=== PATIENT | female | born 1955 | race Caucasian/White ===

== ENCOUNTER 2017-12-19 15:00 | Outpatient (RCR) | payer OTHER, SELFPAY ==
--- NOTE | 2017-12-03 14:08 | PTTR_ITS ---
DATE: 12/03/17 SUBJECTIVE: Keyla stating she is doing okay today. She notes she is waiting to get authorized for an MRI. She states she is compliant with her HEP and is not having a lot of trouble with these exercises. She notes most of her discomfort is when she is reaching up overhead. OBJECTIVE: Therapeutic procedures ([id number]). * X HEP review: Review and modify HEP. Progress to including overhead activities with soup can at home. Add in standing flexion and abduction utilizing soup can for resistance. Review all activities with pt including number of reps and sets to complete and gave her handout of these exercises. See chart for specifics. * X Provided skilled instruction in proper exercise performance: * X Provided skilled manual cues to facilitate proper muscle recruitment and/ or movement pattern: * X Other: Pt will follow up with primary therapist [place] DPT in two weeks. She understands to contact us if she has questions regarding her HEP. Direct treatment time: 30 minutes Total treatment time: 30 minutes Princess Marcano PTA
--- NOTE | 2017-12-19 15:26 | PTTR_ITS ---
DATE: 12/19/17 SUBJECTIVE: Keyla states that her shoulder is feeling about the same. She's been good about doing her exercises daily, but continues to have muscle soreness after completion. Pain is primarily along the medial scapular border, although also extends down the lateral arm with movement. Since her last appointment, she's had an SHERLY performed, which allowed for her to receive her back pay. Dr. Jasso has recommended an MRI, for which she's awaiting approval through [employer] comp. Compliant with HEP: x Yes No OBJECTIVE: Manual therapy: ([id number]): Keyla demonstrates 170 degrees of active flexion on the left. AB allows 170 degrees, IR allows thumb to T8. Passively, her rotation is full and flexion allows 175 degrees. She received CFM to the GT, as well as grade III inferior and AP GH joint mobs. She received scapulothoracic joint mobs in sidelying position, and connective tissue mobilization to the left upper trap. Post-rx, she tolerates 175 degrees flexion with improved comfort noted. We reviewed her HEP, which she's going to continue independently. A/P: Will follow up in 2-3 weeks for re-eval and progression. Direct treatment time: 30 minutes Total treatment time: 30 minutes
== END 2017-12-28 23:59 | disposition home or self-care (01) ==
LOC: PT 15:00
PROVIDERS: PCP Internal Medicine; Referring Provider Orthopaedic Surgery; Visit Provider Orthopaedic Surgery
DX: M65.812 Other synovitis and tenosynovitis, left shoulder (principal); M79.89 Other specified soft tissue disorders
CPT/HCPCS: 97110; 97140

== ENCOUNTER 2020-06-29 21:57 | Outpatient (REF) | payer MEDICARE, OTHER, SELFPAY ==
[2020-06-29 21:49] LABS: HCT 45.5 % (36.0-46.0); HGB 13.6 g/dL (11.2-15.7); MCH 20.8 pg (27.0-33.0); MCHC 29.9 % (32.0-36.0); MCV 69.7 fL (80-95); MPV 10.1 fL (8.0-11.0); Platelet Count 513 10^3/uL (130-400); RBC 6.53 10^6/uL (3.93-5.22); RDW 24.3 % (11.7-14.6); RDW-SD 56.5 fL; WBC 8.44 10^3/uL (4.4-10.8)
[2020-06-29 22:08] LABS: ALT 35 U/L (14-59); AST 19 U/L (15-37); Albumin 4.1 g/dL (3.4-5.0); Alkaline Phosphatase 84 U/L (46-116); Anion Gap 8.9 mmol/L (3-11); BUN 15 mg/dL (7-18); Bilirubin, Total 1.2 mg/dL (0.2-1.0); CO2 28.1 mmol/L (21.0-32.0); CREATININE 0.9 mg/dL (0.55-1.02); Calculated LDL 205 mg/dL (<100); Chloride 105 mmol/L (98-107); Cholesterol 295 mg/dL (<200); Glucose 91 mg/dL (74-106); HDL Cholesterol 52 mg/dL (40-60); Potassium 4.8 mmol/L (3.5-5.1); Sodium 142 mmol/L (136-145); TSH (W/Ref FT4) 1.58 uIU/mL (0.36-3.74); Triglyceride 191 mg/dL (<150)
== END 2020-06-29 21:58 | disposition home or self-care (01) ==
LOC: LBN 21:57
PROVIDERS: PCP Nurse Practitioner Family; Visit Provider Nurse Practitioner Family
DX: E78.5 Hyperlipidemia, unspecified (principal); Z01.30 Encounter for examination of blood pressure without abnormal findings
CPT/HCPCS: 80053; 80061; 85027; 84443

== ENCOUNTER 2020-07-06 08:56 | Outpatient (CLI) | payer MEDICARE, OTHER, SELFPAY ==
--- NOTE | 2020-07-22 09:17 | W.ZIOMONITOR ---
Date of service: 07/22/20 Time of Service: 09:17 14 Day [employer] Referring Provider:: Jeffery Indications:: Palps Note: This is a 14-day monitor with indication of palpitations. ?The patient was in normal sinus rhythm for the majority of the recording with an average heart rate of 70 bpm. ?There were 9 episodes of supraventricular tachycardia with the longest lasting 9 beats. There were rare PACs. ?There were 2 episodes of ventricular tachycardia with the longest lasting 15 beats. This was asymptomatic. ?There were no episodes of atrial fibrillation, no pauses greater than 3 seconds and no evidence of high degree heart block. ?There were no patient triggered events
== END 2020-07-06 08:57 | disposition home or self-care (01) ==
LOC: RT 07-20 08:57
PROVIDERS: PCP Nurse Practitioner Family; Visit Provider Nurse Practitioner Family
DX: R00.2 Palpitations (principal)
CPT/HCPCS: 93246

== ENCOUNTER 2020-07-21 12:15 | Emergency (ER) | payer MEDICARE, OTHER, SELFPAY ==
[2020-07-21 12:19] VITALS: BP 147/63; PULSE 85; RESP 16; TEMP 36.2; O2SAT 99
--- NOTE | 2020-07-21 13:20 | ED.GENADUL_ITS ---
Discharge Plan Disposition Patient Disposition: HOME Condition: Good Discharge Details Clinical Impression: Fissure, anal Primary Care Provider: Lul Figueroa ED Provider: Edith Marsh Home Meds and New Rx's Prescriptions: New lidocaine 4 % gel 1 applic topical BID Qty: 30 RF: 0 glycerin (adult) Suppository 1 supp MO QD-BID PRNQty: 25 RF: 0 docusate sodium [Colace] 100 mg capsule 100 mg PO BID Qty: 30 RF: 0 Continued aspirin 81 mg tablet,chewable 81 mg PO DAILY RF: 0 lisinopril 20 mg tablet 20 mg PO DAILY Qty: 90 RF: 4 atorvastatin [Lipitor] 40 mg tablet 40 mg PO QHS Qty: 90 RF: 4 ibuprofen 200 MG capsule 200 mg PO PRN PRNRF: 0 acetaminophen 650 MG tablet extended release 650 mg PO Q4H PRN (Reason: Pain) Qty: 30 RF: 0 Discharge Instructions Additional Instructions: Take the Colace daily Use the glycerin suppositories daily Sitz bath at night You may use the lidocaine sparingly, use a small amount only twice a day Continue on your Metamucil Return earlier should you have new or worsening complaints Medical Decision Making Patient appears well, we will treat her for a fissure and hemorrhoids constipation She is discharged home in stable condition with stable vitals, she is given a threshold to return should she have new or worsening complaints Abdomen is completely nontender, no indication for imaging at this time As abdomen is soft, nondistended, bowel sounds are intact, low suspicion for b owel obstruction or other pathology Differential Diagnosis Differential Diagnosis: Constipation, hemorrhoid, anal fissure, obstruction Medical Records Medical records reviewed: Yes I reviewed the patient's medical records. HPI This 64-year-old female presents with report of pain to rectum. Patient states that she feels like she has an anal fissure and her hemorrhoids are acting up. She states that she has not been having difficulty moving her bowels secondary to pain. Has pain only with attempt her bowel movement per patient. She denies any abdominal pain, nausea, vomiting, dizziness. Denies fever or chills. Denies urinary symptoms. Stopped taking her Colace temporarily. Has been taking Metamucil at home. Denies any blood in stool. General Date/Time Provider Initiated Documentation: 07/21/20 12:32 . Related Data Home Medications Medication Instructions Recorded Confirmed acetaminophen 650 mg PO Q4H PRN #30 tablet.er 07/27/17 07/21/20 ibuprofen 200 mg PO PRN PRN 07/27/17 07/21/20 aspirin 81 mg chewable tablet 81 mg PO DAILY 07/05/20 07/21/20 lisinopril 20 mg tablet 20 mg PO DAILY #90 tab 07/14/20 07/21/20 atorvastatin 40 mg tablet 40 mg PO QHS #90 tab 07/15/20 07/21/20 docusate sodium [Colace] 100 mg PO BID #30 cap 07/21/20 glycerin (adult) 1 supp MO QD-BID PRN #25 ea 07/21/20 lidocaine 1 applic TOPICAL BID #30 g 07/21/20 Previous Rx's Medication Instructions Recorded acetaminophen 650 mg PO Q4H PRN #30 tablet.er 07/27/17 lisinopril 20 mg tablet 20 mg PO DAILY #90 tab 07/14/20 atorvastatin 40 mg tablet 40 mg PO QHS #90 tab 07/15/20 docusate sodium [Colace] 100 mg PO BID #30 cap 07/21/20 glycerin (adult) 1 supp MO QD-BID PRN #25 ea 07/21/20 lidocaine 1 applic TOPICAL BID #30 g 07/21/20 Allergies Allergy/AdvReac Type Severity Reaction Status Date / Time metaxalone Allergy Severe Itching Verified 07/21/20 12:22 strawberry Allergy Severe Hives Verified 07/21/20 12:22 General Stated Complaint: GenMedical ZACK: 3 Review of Systems Narrative: Review of systems obtained x7 aside from where indicated in HPI negative [facility] Surgical History (Updated 07/05/20 @ 14:40 by Rosa Ronquillo) History of bilateral ligation of fallopian tubes Social History Smoking/Tobacco Use Status: Never Smoking risk assessment performed?: Yes Alcohol Intake: former Drug use: Never Substance use type: does not use Do you feel safe at home: Yes Do you feel safe in your relationship?: Yes Exam Const General: cooperative and comfortable Eyes Pupils: PERRL GI Inspection: normal to inspection Other: No abdominal tenderness with palpation Bowel sounds intact No abdominal bruit or pulsatile mass Other: Anal fissure new diagnosis, tenderness with palpation, no evidence of abscess No evidence of cellulitis Palpable external hemorrhoid and possible palpable internal hemorrhoid, guaiac negative No palpable stool in vault Neuro General: patient alert and patient oriented x3 Extrem Other: Distal pulses intact Course Vital Signs Vital signs: Vital Signs Temperature 36.2 C L 07/21/20 12:19 Pulse 85 07/21/20 12:19 Respiratory Rate 16 07/21/20 12:19 Blood Pressure 147/63 H 07/21/20 12:19 Pulse Oximetry 99 07/21/20 12:19 Temperature 36.2 C L 07/21/20 12:19 Temperature Source Skin 07/21/20 12:19 Pulse 85 07/21/20 12:19 Respiratory Rate 16 07/21/20 12:19 Respiratory Effort 07/21/20 12:24 Blood Pressure 147/63 H 07/21/20 12:19 Blood Pressure Position Sitting 07/21/20 12:19 Pulse Oximetry 99 07/21/20 12:19 Oxygen Delivery Method Room Air 07/21/20 12:19 Oxygen Flow Rate 0 07/21/20 12:19 Pain Level 10 07/21/20 12:19
--- NOTE | 2020-07-22 17:49 | NUR.NOTE ---
Nursing Note: Referral faxed to PCP for follow up for anal fissure per Dr. Ese Ward for early next week. Rosa Paz
== END 2020-07-21 13:27 | disposition home or self-care (01) ==
PROVIDERS: Emergency Provider Physician Assistant; PCP Nurse Practitioner Family
DX: K60.0 Acute anal fissure; K64.4 Residual hemorrhoidal skin tags; K60.2 Anal fissure, unspecified
CPT/HCPCS: 99283

== ENCOUNTER 2020-07-22 09:17 | Outpatient (CLI) | payer MEDICARE, OTHER, SELFPAY | END 2020-07-22 09:18 | LOC: CARDO 08-04 15:36 | PROVIDERS: PCP Nurse Practitioner Family; Referring Provider Nurse Practitioner Family; Visit Provider Internal Medicine Cardiovascular Disease | DX: R00.2 Palpitations (principal); I47.1 Supraventricular tachycardia; I47.2 Ventricular tachycardia | CPT/HCPCS: 93248 ==

== ENCOUNTER 2020-07-24 18:52 | Inpatient (IN) | payer MEDICARE, OTHER, SELFPAY ==
[2020-07-24 19:02] VITALS: BP 154/79; PULSE 115; RESP 18; TEMP 36.6; O2SAT 97
--- NOTE | 2020-07-24 19:05 | ED.GENADUL_ITS ---
Discharge Plan Disposition Patient Disposition: [facility] INPATIENT Condition: Stable Discharge Details Clinical Impression: Constipation, Rectal pain, Pelvic fluid collection, Proctitis Primary Care Provider: Lul Figueroa ED Provider: Nuno Linton Home Meds and New Rx's Prescriptions: No Action aspirin 81 mg tablet,chewable 81 mg PO DAILY RF: 0 lisinopril 20 mg tablet 20 mg PO DAILY Qty: 90 RF: 4 atorvastatin [Lipitor] 40 mg tablet 40 mg PO QHS Qty: 90 RF: 4 polyethylene glycol 3350 [Miralax] 17 gram/dose powder 17 g PO DAILY Qty: 119 RF: 3 ibuprofen 200 MG capsule 200 mg PO PRN PRNRF: 0 acetaminophen 650 MG tablet extended release 650 mg PO Q4H PRN (Reason: Pain) Qty: 30 RF: 0 lidocaine 4 % gel 1 applic topical BID Qty: 30 RF: 0 glycerin (adult) Suppository 1 supp ID QD-BID PRNQty: 25 RF: 0 docusate sodium [Colace] 100 mg capsule 100 mg PO BID Qty: 30 RF: 0 Medical Decision Making <Krystal Oakley DO - Last Filed: 07/24/20 19:54> 64-year-old female with a history of hypertension, depression, CVA, anal fissure who presents for constipation and rectal pain for the past week. Patient seen here few days ago and diagnosed with hemorrhoids and anal fissures and sent home with lidocaine jelly, stool softeners and suppositories. Heart rate 115. Patient appears uncomfortable but nontoxic. She denies abdominal pain but has tenderness across lower abdomen. Patient states she had an internal rectal exam when here a few days ago and is refusing repeat rectal exam due to severe pain. External inspection of rectum notes nonthrombosed hemorrhoids and skin tags but no obvious source for her significant rectal pain. Suspect she either has a significant anal fissure. Also consider cellulitis or abscess however patient appears nontoxic. Will check screening labs, CT abdomen and pelvis and give IV fluids. Although narcotics may worsen constipation, due to patient's severe pain will give a dose of morphine 2 mg IV x1. She also admitted to an episode of urinary incontinence last night and dark very hot urine. She has no focal deficits. No other cauda equina symptoms. Perineal sensation intact and no signs of perineal abscess or cellulitis. We will also check a urine sample to rule out UTI. Suspect patient is holding onto her urine due to pain with sitting on toilet. Discussed with patient's daughter and she was informed of plan. Case endorsed to Dr. Linton to follow-up on labs and imaging and final disposition. Medical Records Medical records reviewed: Yes I reviewed the patient's medical records. <Nuno Linton, DO - Last Filed: 07/25/20 00:12> Patient was signed out to me by my colleague Dr. Krystal Oakley. Please refer to HPI, physical exam assessment and plan. Brief history, patient has had history of constipation, she recently stopped taking her stool softener, which led to constipation and subsequent rectal pain. She was seen a few days ago prescribed Anusol, stool softeners, this did not improve her symptoms. She returns today for worsening of pain, urinating on herself accidentally. Dr. Oakley saw and assessed her, CT scan was ordered and pending at time of signout. CT scan results have returned, there appears to be mild proctitis and stool burden, but in addition to that there is a concerning fluid collection 2 x 5.7 x 4.4 cm between the sacrum and the rectum. Does not clearly appear to be an abscess at this time, but is still of concern. Labs show evidence of a mild white count and mild acute kidney injury. Discomfort to notable to perform repeat rectal exam and has been refused by patient. Discussed the case with surgery/Dr. Marin, she agrees with the atypical and concerning findings of the fluid, we will start Zosyn, and admit for continued monitoring and potential repeat exam under anesthesia tomorrow morning by Dr. Marin. Repeat exam by myself down here shows no signs of focal neurologic deficit, patient appears comfortable in bed currently. Heart rate normal, blood pressure normal. Dr. Marin will place admission orders. Of note there was a self-described stroke in the recent past. No focal neurologic deficits now. Dr. Couch did request that I get a CT scan of the head for anesthesia needs tomorrow. I have extensively reviewed the treatment plan with the patient. I have addressed all patient concerns at this time. I have also discussed the plan with the admitting physician and they agree with the current assessment and plan and have agreed to assume responsibility for the patient. All parties demonstrate verbal understanding and agreement with our assessment and plan at this time. The documentation in this chart was dictated using [employer] dictation software. Please excuse any dictation errors. I did contact the patient's daughter and the patient's and inform them of the situation. FINDINGS: Brain: There is no evidence for acute intra-axial or extra-axial hemorrhage. There is no intracranial mass or mass effect. The basilar cisterns are patent. There is moderate patchy hypodensity within the periventricular and subcortical white matter in the frontoparietal regions suggesting moderate chronic small vessel ischemic changes. There is mild to moderate diffuse cerebral volume loss. Cerebral ventricles: There is mild to moderate ventriculomegaly in proportion to the mild to moderate diffuse cerebral volume loss. Bones/joints: Unremarkable. No acute fracture. Paranasal sinuses: There is a 1.4 x 0.9 cm focal nodular region of soft tissue attenuation within the posterior aspect of the left maxillary sinus suggesting a polyp. The paranasal sinuses are otherwise well aerated. Mastoid air cells: Visualized mastoid air cells are well aerated. Soft tissues: Unremarkable. IMPRESSION: 1. No acute intracranial process identified. 2. Findings of moderate chronic small vessel ischemic changes. 3. Mild to moderate diffuse cerebral volume loss. 4. Polyp within the left maxillary sinus Thank you for allowing us to participate in the care of your patient. Dictated and Authenticated by: Preston Godinez MD 07/24/2020 11:55 PM Eastern Time ([place] & [place]) FINDINGS: Liver: Normal. No mass. Gallbladder and bile ducts: Normal. No calcified stones. No ductal dilation. Pancreas: The pancreas is mildly atrophic, but otherwise appears unremarkable without focal lesion or evidence of acute inflammation. Spleen: Normal. No splenomegaly. Adrenal glands: Normal. No mass. Kidneys and ureters: Normal. No hydronephrosis. Stomach and bowel: There is moderate to large stool within the rectum with moderate rectal distension. There is diffuse mild rectal wall thickening, with more marked thickening of the lower rectum just superior to the level of the anus, suggesting stercoral colitis. There is presacral fluid measuring 2.0 x 5.7 cm in axial dimension is and 4.4 cm in craniocaudal dimension, which is likely related to the adjacent colitis. There is distal colonic diverticulosis without evidence of diverticulitis. Appendix: No evidence of appendicitis. Intraperitoneal space: Unremarkable. No free air. No significant fluid collection. Vasculature: The aorta and iliac arteries demonstrate moderate atherosclerotic calcification without aneurysm formation. Lymph nodes: Unremarkable. No enlarged lymph nodes. Urinary bladder: Unremarkable as visualized. Reproductive: Unremarkable as visualized. Bones/joints: There is moderate facet arthrosis of spine as well as multilevel [id number] spondylosis of the lower thoracic and upper lumbar spine. No acute fractures Soft tissues: There is mild fat stranding within the subcutaneous fat along the gluteal fold adjacent to the anus, as seen on image 82, series 2. No defined fluid collection in this re gion is identified. IMPRESSION: 1. Moderate rectal distention with stool with mild rectal wall thickening and adjacent fat stranding suggesting stercoral colitis. Recommend clinical correlation. 2. Fluid infiltration within the presacral space as described above, likely related to the adjacent colitis. 3. Distal colonic diverticulosis without evidence of diverticulitis Thank you for allowing us to participate in the care of your patient. Dictated and Authenticated by: Preston Godinez MD 07/24/2020 9:44 PM Eastern Time ([place] & [place]) HPI <Krystal Oakley DO - Last Filed: 07/24/20 19:54> General Mode of arrival: ambulatory . Date/Time Provider Initiated Documentation: 07/24/20 18:54 . Limitations to Documentation: no limitations . Information obtained by: patient . HPI Narrative: Patient is a 64-year-old female with a history of depression, hypertension, previous anal fissure, CVA who presents to the ED for rectal pain for the past week. Patient was seen here a few days ago for the same complaint and diagnosed with hemorrhoids and anal fissure and sent home with lidocaine jelly, suppositories and stool softeners. She denies any relief with these at home. She states she also has been taking for the past without relief. Patient states she has a previous history of anal fissure several years ago but states this is much worse. She states she has been taking stool softeners for several years but her primary care office stopped this 2 weeks ago but she is unsure why. She states she then became constipated and attempted to have a bowel movement 1 week ago but was unable. She states she strained while in the toilet and subsequently developed rectal pain the next day. She states she then followed up with her primary care doctor earlier this week and was restarted on her stool softeners. Patient states she then came in here a few days ago for continued constipation and rectal pain. Patient's daughter Rozina also called to states that she brought patient to the ED and patient can be private about her symptoms. She states that patient has been quite uncomfortable. She states that patient endorsed to her that she had an episode of urinary incontinence while laying in bed last night. She told her daughter that her urine was a large amount that gushed out and was very hot. Related Data Home Medications Medication Instructions Recorded Confirmed acetaminophen 650 mg PO Q4H PRN #30 tablet.er 07/27/17 07/24/20 ibuprofen 200 mg PO PRN PRN 07/27/17 07/24/20 aspirin 81 mg chewable tablet 81 mg PO DAILY 07/05/20 07/24/20 lisinopril 20 mg tablet 20 mg PO DAILY #90 tab 07/14/20 07/24/20 atorvastatin 40 mg tablet 40 mg PO QHS #90 tab 07/15/20 07/24/20 docusate sodium [Colace] 100 mg PO BID #30 cap 07/21/20 07/24/20 glycerin (adult) 1 supp ID QD-BID PRN #25 ea 07/21/20 07/24/20 lidocaine 1 applic TOPICAL BID #30 g 07/21/20 07/24/20 polyethylene glycol 3350 17 17 g PO DAILY #119 g 07/23/20 07/24/20 gram/dose oral powder Previous Rx's Medication Instructions Recorded acetaminophen 650 mg PO Q4H PRN #30 tablet.er 07/27/17 lisinopril 20 mg tablet 20 mg PO DAILY #90 tab 07/14/20 atorvastatin 40 mg tablet 40 mg PO QHS #90 tab 07/15/20 docusate sodium [Colace] 100 mg PO BID #30 cap 07/21/20 glycerin (adult) 1 supp ID QD-BID PRN #25 ea 07/21/20 lidocaine 1 applic TOPICAL BID #30 g 07/21/20 polyethylene glycol 3350 17 17 g PO DAILY #119 g 07/23/20 gram/dose oral powder Allergies Allergy/AdvReac Type Severity Reaction Status Date / Time metaxalone Allergy Severe Itching Verified 07/24/20 19:06 strawberry Allergy Severe Hives Verified 07/24/20 19:06 General ZACK: 3 Review of Systems <Krystal Oakley DO - Last Filed: 07/24/20 19:54> All systems reviewed & are unremarkable except as noted in HPI and below Constitutional Constitutional: Reports as per HPI, Denies chills and Denies fever(s) Eyes Eyes: Denies blurry vision ENT Ears, Nose, Mouth, and Throat: Denies dizziness, Denies sore throat and Denies throat swelling Cardiovascular Cardiovascular: Denies chest pain and Denies dyspnea Respiratory Respiratory: Denies cough and Denies dyspnea Gastrointestinal Gastrointestinal: Denies abdominal pain, Reports hematochezia, Reports constipation, Denies diarrhea, Reports nausea, Denies vomiting and Reports other (rectal pain) Genitourinary Genitourinary: Denies hematuria and Denies dysuria Musculoskeletal Musculoskeletal: Denies back pain and Denies numbness Integumentary/Breasts Skin/Breast: Denies lesions and Denies rash Neurologic Neurologic: Denies dizziness, Denies localized weakness and Denies numbness Allergic/Immunologic Allergic/Immunologic: Denies throat swelling PFSH <Krystal Oakley DO - Last Filed: 07/24/20 19:54> Medical History (Updated 07/25/20 @ 00:11 by Nuno Linton DO) CVA (cerebral vascular accident) Depression Fissure, anal Hypertension Stroke Surgical History H/O shoulder surgery History of bilateral ligation of fallopian tubes Social History Smoking/Tobacco Use Status: Never Smoking risk assessment performed?: Yes Alcohol Intake: former Drug use: Never Substance use type: does not use Do you feel safe at home: Yes Do you feel safe in your relationship?: Yes Exam <Krystal Oakley DO - Last Filed: 07/24/20 19:54> Const General: cooperative, uncomfortable and no acute distress Orientation: alert, awake and oriented x3 HENMT Head: normal to inspection Face and sinus: normal facial exam Eyes General: appearance normal, both eyes and all related structures EOM: EOM intact bilaterally Neck Neck: normal visual inspection and No submandibular swelling Lymphatic: no lymphadenopathy noted Chest Chest: normal inspection of the chest and no tenderness Resp Effort & Inspection: normal respiratory effort and able to speak in complete sentences Auscultation: clear to auscultation bilaterally Cardio Rate: tachycardic Rhythm: regular rhythm GI Inspection: normal to inspection Palpation: soft, not firm, not rigid and tender in the LLQ, in the RLQ and suprapubicly Auscultation: normal bowel sounds Rectal Exam - female: hemorrhoids (nonthrombosed, nontender) Skin General skin exam: no rashes or lesions noted Neuro General: patient alert, patient awake and patient oriented x3 Cognition: normal cognition Speech: speech normal Motor: muscle tone normal throughout Sensory Exam: no sensory deficits noted Extrem General: normal to inspection, full ROM, capillary refill normal, no calf tenderness bilaterally and no edema Psych Appearance: grossly normal Mental Status: mental status grossly normal Speech and Movement: speech and movement normal Affect: normal affect Sign Out <Krystal Okaley DO - Last Filed: 07/24/20 19:54> Sign Out Data: Sign Out Comment: Follow-up on labs and imaging and final disposition. Last updated by Krystal Oakley DO at 07/24/20 19:55
[2020-07-24] MEDS: Normal Saline 500 ML IV (19:57)
[2020-07-24] MEDS: Ketorolac 30 MG/ML VIAL IVP (19:58)
[2020-07-24 20:03] LABS: Abs Immature Grans 0.07 10^3/uL (0.0-0.06); Absolute Eosinophil Count 0.18 10^3/uL (0.0-0.7); Absolute Lymphocyte Count 2.25 10^3/uL (1.2-3.4); Absolute Monocyte Count 0.86 10^3/uL (0.1-0.8); Absolute Neutrophil Count 9.38 10^3/uL (1.2-6.7); Basophils % 0.8; Eosinophils % 1.4; HCT 45.3 % (36.0-46.0); HGB 13.9 g/dL (11.2-15.7); Immature Grans % 0.5; Lymphocytes % 17.5; MCH 21.4 pg (27.0-33.0); MCHC 30.7 % (32.0-36.0); MCV 69.8 fL (80-95); MPV 10.3 fL (8.0-11.0); Monocytes % 6.7; Neutrophils % 73.1; Nucleated RBC 0 %; Platelet Count 695 10^3/uL (130-400); RBC 6.49 10^6/uL (3.93-5.22); RDW 24.1 % (11.7-14.6); RDW-SD 55.8 fL; WBC 12.83 10^3/uL (4.4-10.8)
[2020-07-24 20:24] LABS: ALT 34 U/L (14-59); AST 26 U/L (15-37); Albumin 4.1 g/dL (3.4-5.0); Alkaline Phosphatase 114 U/L (46-116); Anion Gap 14.3 mmol/L (3-11); BUN 30 mg/dL (7-18); Bilirubin, Total 1.1 mg/dL (0.2-1.0); CO2 23.7 mmol/L (21.0-32.0); CREATININE 1.4 mg/dL (0.55-1.02); Calcium 9.7 mg/dL (8.5-10.1); Chloride 99 mmol/L (98-107); Estimated GFR 37.74 (mL/min/1.73m2); Glucose 81 mg/dL (74-106); Lipase 151 U/L (73-393); Potassium 4.5 mmol/L (3.5-5.1); Sodium 137 mmol/L (136-145); Total Protein 8.5 g/dL (6.4-8.2)
--- NOTE | 2020-07-24 20:30 | DI.CT_ITS ---
EXAM: CT ABDOMEN PELVIS WO CLINICAL HISTORY: rectal pain, lower abd pain, SWETA (non-con). TECHNIQUE: Imaging Protocol: Axial computed tomography images with coronal and sagittal reformatted images were created and reviewed CONTRAST MATERIAL: Intravenous: none Oral: None COMPARISON: No exams were available for comparison FINDINGS: VISUALIZED LUNG BASES: No nodules nor pleural effusions evident. ABDOMEN: There is no ascites. LIVER: There are no obvious focal hepatic lesions evident of this noninfused study. GALLBLADDER/BILIARY: No obvious gallbladder pathology. CBD is not dilated. PANCREAS: No evidence of pancreatic mass nor dilatation of the pancreatic duct. SPLEEN: Spleen is not enlarged. No obvious intrasplenic lesions. Small splenule noted measuring 8 m illimeters. ADRENALS: There are no significant adrenal masses. KIDNEYS:No cysts evident. No solid renal masses. No calculi nor hydronephrosis. . ABDOMINAL AORTA: Abdominal aorta is not enlarged. LYMPH NODES: There is no retroperitoneal nor paraaortic adenopathy. ABDOMINAL WALL/GI: No evidence of significant anterior abdominal wall hernia. No bowel obstruction. PELVIS: LYMPH NODES: There is no intrapelvic nor inguinal adenopathy. GI: No evidence of appendicitis.There are multiple sigmoid diverticuli but no evidence of obvious acu te diverticulitis.There is abundant fecal material in the rectum and circumferential thickening of th e rectal wall and some surrounding streaking and presacral density. URINARY BLADDER: No calculi nor obvious masses evident REPRODUCTIVE: Age-appropriate OSSEOUS: No significant osseous lesions. IMPRESSION: 1. There are circumferential rectal wall thickening and adjacent fat stranding consistent with elemen t of colitis and there is abundant stool in the rectum with moderate rectal distension. 2. In the retro rectal presacral region there is some presacral fluid measuring approximately 2 cm AP x 6 cm wide by 4 cm craniocaudal. This is probably related to the colitis pattern in the adjacent r ectum. There is no regional lymphadenopathy evident. 3. Sigmoid diverticulosis without evidence of obvious acute diverticulitis. RADIATION DOSE DELIVERED: 698.53mGy.cm Total DLP DATA REPOSITORY: All CT scans at this facility are submitted to the National Radiology Data Registry (NRDR) Dose Index Registry (DIR) with the [employer] (ACR). RADIATION OPTIMIZATION: All CT scans at this facility use at least one of these dose optimization te chniques: automated exposure control; mA and/or kV adjustment per patient size (includes targeted exa ms where dose is matched to clinical indication); or iterative reconstruction.
[2020-07-24 21:06] VITALS: BP 120/68; PULSE 78; RESP 16; O2SAT 98
--- NOTE | 2020-07-24 21:44 | DI.VRAD_ITS ---
PROCEDURE INFORMATION: Exam: CT Abdomen And Pelvis Without Contrast Exam date and time: 07/24/2020 8:47 PM Age: 64 years old Clinical indication: Abdominal pain and other: Rectal; Tenderness; Patient HX: Rectal pain, h/o fissure/hemorrhoids/abd tender TECHNIQUE: Imaging protocol: Computed tomography of the abdomen and pelvis without contrast. COMPARISON: No relevant prior studies available. FINDINGS: Liver: Normal. No mass. Gallbladder and bile ducts: Normal. No calcified stones. No ductal dilation. Pancreas: The pancreas is mildly atrophic, but otherwise appears unremarkable without focal lesion or evidence of acute inflammation. Spleen: Normal. No splenomegaly. Adrenal glands: Normal. No mass. Kidneys and ureters: Normal. No hydronephrosis. Stomach and bowel: There is moderate to large stool within the rectum with moderate rectal distension. There is diffuse mild rectal wall thickening, with more marked thickening of the lower rectum just superior to the level of the anus, suggesting stercoral colitis. There is presacral fluid measuring 2.0 x 5.7 cm in axial dimension is and 4.4 cm in craniocaudal dimension, which is likely related to the adjacent colitis. There is distal colonic diverticulosis without evidence of diverticulitis. Appendix: No evidence of appendicitis. Intraperitoneal space: Unremarkable. No free air. No significant fluid collection. Vasculature: The aorta and iliac arteries demonstrate moderate atherosclerotic calcification without aneurysm formation. Lymph nodes: Unremarkable. No enlarged lymph nodes. Urinary bladder: Unremarkable as visualized. Reproductive: Unremarkable as visualized. Bones/joints: There is moderate facet arthrosis of spine as well as multilevel [id number] spondylosis of the lower thoracic and upper lumbar spine. No acute fractures Soft tissues: There is mild fat stranding within the subcutaneous fat along the gluteal fold adjacent to the anus, as seen on image 82, series 2. No defined fluid collection in this region is identified. IMPRESSION: 1. Moderate rectal distention with stool with mild rectal wall thickening and adjacent fat stranding suggesting stercoral colitis. Recommend clinical correlation. 2. Fluid infiltration within the presacral space as described above, likely related to the adjacent colitis. 3. Distal colonic diverticulosis without evidence of diverticulitis Dictated and Authenticated by: Preston Godinez MD. Ordering:AMRITA Reina MD
--- NOTE | 2020-07-24 22:18 | NUR.NOTE ---
Nursing Note: Vamsi Joy, , [place] [phone] daughter
[2020-07-24] MEDS: PIPERACILLIN/TAZO 3.375 GM in Normal Saline 50 ML IVPB (22:31)
--- NOTE | 2020-07-24 22:33 | W.PM.HP.N ---
Date of service: 07/24/20 Time of Service: 22:33 Assessment and Plan Assessment and plan (1) Rectal pain: Status: Acute Assessment and plan: I did personally review the CT. Images show a non specific fluid collection that I do not think is an abscess. Prophylactic abx started Will plan on EUA and further recommendations pending this. PT eval- pt requiring help to transfer to toilet. CT was negative for cute stroke. Still anesthesia concerns that we could induce another TIA, but acceptable risk for Sx today. -Need carotid US in future -family hx of hyper coag d/o and mult PE. pt has never been worked up for this. risks: bleeding/infection/perforation anethesia(stroke) damage to sphincters including stenosis or loss of control I did d/w anesthesia risk - her head CT is negative for acute stroke. He feels acceptable risk for anesthesia. (2) Right sided weakness: Status: Acute (3) Aphasia: Status: Acute (4) Fecal impaction in rectum: Status: Acute History of Present Illness Consults Consult date: 07/24/20 Narrative: Pt recently stopped taking stool softners (unclear why this was done). She came to the ED today c/o severe rectal pain adn inability to have a BM. CT shows a lg fluid collection, but it is pre sacral. It appears to be only fluid and not an abscess. Pt will not allow rectal exam due to pain. She has a hx of hemorrhoids adn fissures. No prior CE. Pt denies any trauma. No prior XRT or surgery C section). She had some aphasia and arm numbness on 07/02. She did not go to the doctor at the time. She has not had a CT. She is being followed by PT for residual weakness. She is not on any blood thinners. She did not have carotid studies done. Her BP meds were just started in March. Review of Systems All systems reviewed & are unremarkable except as noted in HPI and below PFSH Medical History (Updated 07/25/20 @ 11:36 by Keke Marin DO) CVA (cerebral vascular accident) Depression Fissure, anal Hypertension Stroke Surgical History H/O shoulder surgery History of bilateral ligation of fallopian tubes Social History Smoking/Tobacco Use Status: Never Smoking risk assessment performed?: Yes Alcohol Intake: former Drug use: Never Substance use type: does not use Do you feel safe at home: Yes Do you feel safe in your relationship?: Yes Meds Home Medications and Allergies Allergies Allergy/AdvReac Type Severity Reaction Status Date / Time metaxalone Allergy Severe Itching Verified 07/24/20 19:06 strawberry Allergy Severe Hives Verified 07/24/20 19:06 Home Medications Medication Instructions Recorded Confirmed Type acetaminophen 650 mg PO Q4H PRN #30 tablet.er 07/27/17 07/24/20 Rx ibuprofen 200 mg PO PRN PRN 07/27/17 07/24/20 History aspirin 81 mg chewable tablet 81 mg PO DAILY 07/05/20 07/24/20 History lisinopril 20 mg tablet 20 mg PO DAILY #90 tab 07/14/20 07/24/20 Rx atorvastatin 40 mg tablet 40 mg PO QHS #90 tab 07/15/20 07/24/20 Rx docusate sodium [Colace] 100 mg PO BID #30 cap 07/21/20 07/24/20 Rx glycerin (adult) 1 supp NE QD-BID PRN #25 ea 07/21/20 07/24/20 Rx lidocaine 1 applic TOPICAL BID #30 g 07/21/20 07/24/20 Rx polyethylene glycol 3350 17 17 g PO DAILY #119 g 07/23/20 07/24/20 Rx gram/dose oral powder Exam Resp Effort & Inspection: normal respiratory effort and able to speak in complete sentences Auscultation: clear to auscultation bilaterally Cardio Rate: regular rate Rhythm: regular rhythm GI Inspection: normal to inspection Palpation: soft and hernia umbilical Rectal Exam - female: visual inspection normal Other: pt will not allow exam Extrem General: no clubbing, cyanosis or edema Other: venous insuf of GSV b/l Results Labs Result diagrams: 07/25/20 05:25 07/25/20 05:25 Labs: Laboratory Results - last 24 hr 07/24/20 07/24/20 19:50 19:50 WBC 12.83 H RBC 6.49 H Hgb 13.9 Hct 45.3 MCV 69.8 L MCH 21.4 L MCHC 30.7 L RDW 24.1 H Plt Count 695 H MPV 10.3 Immature Gran % 0.5 Neutrophils % 73.1 Lymphocytes % 17.5 Monocytes % 6.7 Eosinophils % 1.4 Basophils % 0.8 Nucleated RBC % 0 Absolute Neutrophils 9.38 H Absolute Lymphocytes 2.25 Absolute Monocytes 0.86 H Absolute Eosinophils 0.18 Absolute Basophils 0.10 Sodium 137 Potassium 4.5 Chloride 99 Carbon Dioxide 23.7 Anion Gap 14.3 H BUN 30 H Creatinine 1.4 H Estimated GFR/1.73 m2 37.74 Glucose 81 Calcium 9.7 Total Bilirubin 1.1 H AST 26 ALT 34 Alkaline Phosphatase 114 Total Protein 8.5 H Albumin 4.1 Lipase 151 Last Vital Signs Temp 36.6 C 07/24/20 19:02 Pulse 78 07/24/20 21:06 Resp 16 07/24/20 21:06 BP 120/68 07/24/20 21:06 Pulse Ox 98 07/24/20 21:06 COVID-19 Screening Have you, or household traveled for leisure in last 14 days?: No Had IN PERSON contact w/suspected or confirmed C-19 person: No
--- NOTE | 2020-07-24 22:45 | DI.CT_ITS ---
EXAM: CT HEAD WO CLINICAL HISTORY: previous stroke, requested by admitting service. TECHNIQUE: Imaging Protocol: Axial computed tomography images with coronal and sagittal reformatted images were created and reviewed COMPARISON: No exams were available for comparison FINDINGS: There are no skull fractures none. Retention cyst is seen in the posterior aspect of the left maxil lex sinus. No associated fluid level at this location. Remainder of the visualized paranasal sinus es are clear. There is no evidence of intracranial hemorrhage, mass effect, or shift of midline structures. There are no extra-axial fluid collections. The ventricles are not enlarged or shifted and there is no blo od within the ventricular system nor within the basal cisterns. There is abundant bilateral periventricular hypodensity consistent with chronic small vessel white ma tter disease. No obvious acute appearing territorial infarction. IMPRESSION: There is abundant bilateral periventricular hypodensity consistent with advanced small vessel disease . No evidence of intracranial hemorrhage. If clinically indicated follow-up MRI with diffusion imaging can be performed to determine if there h as been an acute ischemic event. Post inflammatory retention cysts noted in the posterior aspect of the left maxillary sinus. RADIATION DOSE DELIVERED: 671.15mGy.cm Total DLP DATA REPOSITORY: All CT scans at this facility are submitted to the National Radiology Data Registry (NRDR) Dose Index Registry (DIR) with the [employer] (ACR). RADIATION OPTIMIZATION: All CT scans at this facility use at least one of these dose optimization te chniques: automated exposure control; mA and/or kV adjustment per patient size (includes targeted exa ms where dose is matched to clinical indication); or iterative reconstruction.
[2020-07-24 23:17] LABS: COVID-19 PCR Negative (Negative)
[2020-07-24 23:28] LABS: C-Reactive Protein 1.18 mg/dL (0.0-0.3)
--- NOTE | 2020-07-24 23:55 | DI.VRAD_ITS ---
PROCEDURE INFORMATION: Exam: CT Head Without Contrast Exam date and time: 07/24/2020 10:50 PM Age: 64 years old Clinical indication: Screening exam; Patient HX: Previous stroke; Additional info: Requested by admitting service TECHNIQUE: Imaging protocol: Computed tomography of the head without contrast. COMPARISON: No relevant prior studies available. FINDINGS: Brain: There is no evidence for acute intra-axial or extra-axial hemorrhage. There is no intracranial mass or mass effect. The basilar cisterns are patent. There is moderate patchy hypodensity within the periventricular and subcortical white matter in the frontoparietal regions suggesting moderate chronic small vessel ischemic changes. There is mild to moderate diffuse cerebral volume loss. Cerebral ventricles: There is mild to moderate ventriculomegaly in proportion to the mild to moderate diffuse cerebral volume loss. Bones/joints: Unremarkable. No acute fracture. Paranasal sinuses: There is a 1.4 x 0.9 cm focal nodular region of soft tissue attenuation within the posterior aspect of the left maxillary sinus suggesting a polyp. The paranasal sinuses are otherwise well aerated. Mastoid air cells: Visualized mastoid air cells are well aerated. Soft tissues: Unremarkable. IMPRESSION: 1. No acute intracranial process identified. 2. Findings of moderate chronic small vessel ischemic changes. 3. Mild to moderate diffuse cerebral volume loss. 4. Polyp within the left maxillary sinus. Dictated and Authenticated by: Preston Godinez MD. Ordering:AMRITA Reina MD
[2020-07-25] VITALS (18 sets, daily range): BP systolic 122–145; BP diastolic 46–82; PULSE 62–84; RESP 13–18; TEMP 36.2–36.9; O2SAT 94–100
[2020-07-25] MEDS: Magnesium Citrate 300 ML BTL PO ×2 (00:49→12:19)
[2020-07-25] MEDS: Normal Saline 1,000 ML 125 ML IV ×3 (00:49→19:35)
[2020-07-25] MEDS: Normal Saline Flush 10 ML SYR IVP ×4 (00:50→18:02)
[2020-07-25 02:57] LABS: Bilirubin Small (Negative); Blood Negative (Negative); Clarity Sl Cloudy (Clear); Glucose Negative (Negative); Ketones 40 mg/dL (Negative); Leukocyte Esterase Small (Negative); Nitrite Negative (Negative); Urobilinogen 0.2 EU/dL (Up TO 0.2)
[2020-07-25 03:04] LABS: Bacteria Few HPF (Negative); Crystals Negative HPF (Negative); Epithelial Cells Many HPF (Negative); RBC Negative HPF (0-2)
[2020-07-25 03:05] LABS: C & S Indicated? No/Sq. Contamination; Casts 0-2 Hyaline LPF (Negative); Mucus Negative (Negative)
[2020-07-25] MEDS: PIPERACILLIN/TAZO 3.375 GM in Normal Saline 50 ML IVPB ×2 (04:21→10:00)
[2020-07-25 05:42] LABS: Abs Immature Grans 0.05 10^3/uL (0.0-0.06); Absolute Basophil Count 0.11 10^3/uL (0.0-0.2); Absolute Eosinophil Count 0.22 10^3/uL (0.0-0.7); Absolute Lymphocyte Count 2.29 10^3/uL (1.2-3.4); Absolute Monocyte Count 0.76 10^3/uL (0.1-0.8); Basophils % 1.1; Eosinophils % 2.1; HCT 39.4 % (36.0-46.0); Immature Grans % 0.5; Lymphocytes % 22.2; MCH 21.1 pg (27.0-33.0); MCHC 29.9 % (32.0-36.0); MCV 70.6 fL (80-95); MPV 10.1 fL (8.0-11.0); Monocytes % 7.4; Neutrophils % 66.7; Nucleated RBC 0 %; Platelet Count 579 10^3/uL (130-400); RBC 5.58 10^6/uL (3.93-5.22); RDW 23.8 % (11.7-14.6); RDW-SD 56.4 fL; WBC 10.33 10^3/uL (4.4-10.8)
[2020-07-25 05:56] LABS: Anion Gap 13.9 mmol/L (3-11); BUN 26 mg/dL (7-18); C-Reactive Protein 0.93 mg/dL (0.0-0.3); CO2 21.1 mmol/L (21.0-32.0); CREATININE 1.1 mg/dL (0.55-1.02); Calcium 9.1 mg/dL (8.5-10.1); Chloride 106 mmol/L (98-107); Estimated GFR 49.85 (mL/min/1.73m2); Glucose 76 mg/dL (74-106); Potassium 4.2 mmol/L (3.5-5.1); Sodium 141 mmol/L (136-145)
[2020-07-25] MEDS: Pantoprazole 40 MG VIAL IVP (06:09)
[2020-07-25 06:26] LABS: Anisocytosis 2+; Hypochromasia 1+; Microcytosis 3+; Polychromasia Present
[2020-07-25 06:27] LABS: HGB 11.8 g/dL (11.2-15.7)
[2020-07-25] MEDS: Lidocaine 1% Multi-Dose 50 ML VIAL (10:52)
--- NOTE | 2020-07-25 11:19 | PDOC.CMIN ---
- If Service Date Differs Date of service: 07/25/20 Time of Service: 11:19 Care Management Initial Assess REASON FOR HOSPITALIZATION:: Rectal Pain, possible abcess PAST MEDICAL HISTORY/PAST SURGICAL HISTORY:: Medical History. CVA (cerebral vascular accident). Depression. Fissure, anal. Hypertension. Stroke. Surgical History. H/O shoulder surgery. History of bilateral ligation of fallopian tubes PREVIOUS FUNCTIONAL STATUS/SOCIAL/FAMILY SUPPORTS:: Keyla lives in an apartment in [place] with her daughter, who is very supportive. She is retired. She is independent at baseline. CURRENT FUNCTIONAL STATUS:: Keyla was lying in bed when CM met with her. She reported that she remains in 8/10 pain, but her RN has been checking on her. She stated that she went to the OR today for a procedure, and is not sure how long she is expected to remain at [facility]. CM will continue to follow. ADVANCE DIRECTIVES:: None on file, CM will offer forms. Has patient been provided with info about the portal/API?: Yes Did the patient sign up for the portal?: Yes (previously enrolled) CODE STATUS:: Full Code INSURANCE COVERAGE / FINANCIAL ISSUES:: [facility]/ [employer]/ CURRENT HOME/COMMUNITY SERVICES/EQUIPMENT:: No current services or equipment PRIMARY CARE PHYSICIAN:: Lul Figueroa POTENTIAL DISCHARGE NEEDS:: Evaluations for further needs, follow up appointments PATIENT/FAMILY EDUCATION NEEDS:: Review discharge instructions regarding activity levels and medications, discussion of self care needs. ANTICIPATED BARRIERS TO DISCHARGE:: None identified. TRANSPORTATION:: Via private vehicle by family PLAN:: Anticipate Keyla will return home when medically cleared. She will be driven home via private vehicle by family. She will follow up with her PCP and discharge plan of care. CM will continue to follow.
[2020-07-25] MEDS: fentaNYL 100 MCG/2 ML VIAL IVP ×3 (11:25→11:39)
--- NOTE | 2020-07-25 11:30 | ROE_ITS ---
Date of service: 07/25/20 Time of Service: 11:31 Operative Note Operative Note DATE OF PROCEDURE: 07/25/20 PRE-OP DIAGNOSIS: rectal pain/obstipation/possible abscess/hx of hemorrhoids POST-OP DIAGNOSIS: other external hemorrhoids/internal hemorrhoids/rectal stricture PROCEDURE: EUA ext hemorrhoids x 2 ext hemorrhoidal tags x2 banding internal hemorrhoidal banding fecal disimpaction SURGEON: Keke Marin ANESTHESIA TYPE: General LMA/ETT Refer to Anesthesia Record ESTIMATED BLOOD LOSS: 1 PATHOLOGY: none sent COMPLICATIONS: None Patient was transported to: PACU Procedure Description: Patient was admitted with severe rectal pain and obstipation. Also possible rectal abscess. She is coming to the OR for exam under anesthesia, possible drainage of abscess, and possible hemorrhoid excision. Informed consent is obtained explaining risks and benefits of the procedure including but not limited to bleeding, infection, complications from the anesthesia, including stroke, stenosis or loss of control, and other unforetold complications. Patient is brought to the operative room suite placed supine position. General anesthetic is ministered per the department of anesthesia. Patient is then placed into lithotomy stirrups. She is prepped and draped in usual sterile fashion using a Betadine scrub solution. Timeout is performed. She did receive Zosyn antibiotics. 20 cc of 1% lidocaine is used for local and anesthetic. Digital rectal exam shows mild stenosis. She has a significant amount of soft stool. She has good tone. She has some small external hemorrhoidal tags x2. She has a small external hemorrhoid x1. There does not appear to be rectal prolapse. The rectal mucosa is pink and healthy. There is no signs of colitis/proctitis. She has a very small fissure but nothing significant. She has a small internal hemorrhoid grade 1 with no thrombosis. 4 L of saline was used to evacuate the stool from the rectal vault- again this stool is soft and would be a type V on the scale. The 2 small tags were removed with cautery. The external hemorrhoidal vein is coagulated with cautery. She has 1 small internal hemorrhoid that of band is placed on. There is no bleeding noted. There is no signs of any infectious process. The mucosa is pink and healthy. There are no signs of any perirectal abscesses. There is no induration of the tissues. 2% lidocaine jelly and a peripad is applied. Patient tolerated the procedure well and transferred to PACU in stable condition.
[2020-07-25] MEDS: Gelatin SPONGE 12-7 MM PKT 1 EACH TP (11:50)
[2020-07-25] MEDS: Acetaminophen 500 MG TAB 1000 MG PO ×2 (12:14→19:34)
[2020-07-25] MEDS: Ketorolac 15 MG/ML VIAL IVP ×2 (12:15→18:01)
--- NOTE | 2020-07-25 13:22 | PHA.REVIEW ---
Pharmacy Admission Review - Admission Clinical Review (Last Updated 07/24/20 @ 22:41 by Keke Marin DO) Fecal impaction in rectum (Acute) Pelvic fluid collection (Acute) Proctitis (Acute) Constipation (Acute) Rectal pain (Acute) Right sided weakness (Acute) Aphasia (Acute) metaxalone Allergy (Severe, Verified 07/24/20 19:06) Itching strawberry Allergy (Severe, Verified 07/24/20 19:06) Hives Height 5 ft Weight 63.503 kg - Comments Comments/Follow Ups: surgery today included banding internal hemorrhoidals and. fecal disimpaction - Renal Dosing Renal Dosing: BUN 26 mg/dL (7-18) H 07/25/20 05:25 Creatinine 1.1 mg/dL (0.55-1.02) H 07/25/20 05:25 Medications needing adjustments: Reviewed (crcl ~41ml/min) - Anticoagulation Anticoagulation: Hgb 11.8 g/dL (11.2-15.7) D 07/25/20 05:25 Hct 39.4 % (36.0-46.0) 07/25/20 05:25 Plt Count 579 10^3/uL (130-400) H 07/25/20 05:25 Creatinine 1.1 mg/dL (0.55-1.02) H 07/25/20 05:25 DVT Prohphylaxis: N/A (surgery) Therapeutic Anticoagulation: N/A - Opiate Usage Evaluate Pain Scale/Pains Meds: Reviewed Scheduled Bowel Reg ordered if on Opiates?: Yes - Relevant Labs Sodium 141 mmol/L (136-145) 07/25/20 05:25 Potassium 4.2 mmol/L (3.5-5.1) 07/25/20 05:25 Chloride 106 mmol/L (98-107) 07/25/20 05:25 C-Reactive Protein 0.93 mg/dL (0.0-0.3) H 07/25/20 05:25 - DM Control DM Control: Glucose 76 mg/dL (74-106) 07/25/20 05:25 - BP Control BP Control: Blood Pressure 141/59 Blood Pressure 145/46 Blood Pressure 137/64 Blood Pressure 137/64 Blood Pressure 129/67 Blood Pressure 128/54 Blood Pressure 122/67 Blood Pressure 126/73 Blood Pressure 128/78 - Home Meds Home Med List reviewed: Reviewed (atorvastatin from home list not ordered yet) - Current meds Current Medication Order Review: Reviewed - Comments Comments/Follow Ups: pip/tazo started on admission but stopped after surgery. one time dose of mag citrate ordered post op
[2020-07-25] MEDS: Docusate Sodium 100 MG CAP PO ×2 (13:45→19:35)
[2020-07-25] MEDS: Atorvastatin 40 MG TAB PO (22:19)
[2020-07-26] MEDS: Ketorolac 15 MG/ML VIAL IVP ×3 (00:15→11:43)
[2020-07-26] MEDS: Normal Saline Flush 10 ML SYR IVP ×3 (00:15→11:43)
[2020-07-26 02:37] VITALS: BP 109/63; RESP 18; TEMP 36.5; O2SAT 94
[2020-07-26] MEDS: Normal Saline 1,000 ML 125 ML IV (03:38)
[2020-07-26] MEDS: Acetaminophen 500 MG TAB 1000 MG PO ×2 (03:38→11:43)
[2020-07-26] MEDS: Pantoprazole 40 MG VIAL IVP (06:44)
--- NOTE | 2020-07-26 07:20 | W.PM.PROGNOT ---
Date of Service Date of service: 07/26/20 Time of Service: 07:21 Assessment and Plan Assessment and plan (1) Rectal pain: Status: Acute Assessment and plan: Prophylactic abx PT eval- pt requiring help to transfer to toilet. Encouraged activity OOB as tolerated. Pulmonary toilet Will start bowel regimen to keep stools soft to allow for easier bowel movements. (2) Right sided weakness: Status: Acute (3) Aphasia: Status: Acute (4) Fecal impaction in rectum: Status: Acute Subjective Subjective Interval history since last seen: Patient reports that she was able to get some sleep last night. She expresses some mild rectal discomfort, that is intermittent and sharp in nature. She denies any chest pain, SOB or abdominal pain at this time. Exam Const General: cooperative, healthy appearing and comfortable Orientation: alert and oriented x3 Resp Effort & Inspection: normal respiratory effort, no audible wheezes and no cough GI Palpation: soft, no guarding and nontender Objective Last Vital Signs Temp 36.5 C 07/26/20 02:37 Pulse 72 07/25/20 23:10 Resp 18 07/26/20 02:37 BP 109/63 07/26/20 02:37 Pulse Ox 94 07/26/20 02:37
[2020-07-26 07:30] VITALS: BP 122/71; PULSE 64; RESP 18; TEMP 36.6; O2SAT 93
--- NOTE | 2020-07-26 08:00 | DI.US_ITS ---
EXAM: US CAROTID CLINICAL HISTORY: TIA. TECHNIQUE: Ultrasound carotids performed using grayscale, color-flow, and spectral Doppler imaging. COMPARISON: No exams were available for comparison FINDINGS: RIGHT CAROTID ARTERY: Plaque: Minimal. Velocity elevation: None. LEFT CAROTID ARTERY: Plaque: Minimal. Velocity elevation: None. VERTEBRAL ARTERIES: Antegrade flow. Measurements in cm/sec: R Bulb: 34 PS/13 ED R CCA: 78 PS/15 ED R ECA: 115 PS/12 ED R ICA Prox: 56 PS/16 ED R ICA Mid: 68 PS/18 ED R ICA Distal: 75 PS/24 ED R Vert: 70 PS/ 19 ED R PSV: 0.97 R EDV: 1.55 L Bulb: 79 PS/13 ED L CCA: 75 PS/9 ED L ECA: 189 PS/13 ED L ICA Prox: 63 PS/13 ED L ICA Mid: 76PS/19 ED L ICA Distal: 81 PS/21 ED L Vert: 40 PS/8 ED L PSV: 1.08 L EDV: 2.31 IMPRESSION: No evidence for hemodynamically significant carotid stenosis. Criteria for Carotid Stenosis: Normal: ICA PSV <125 cm/s no plaque or intimal thickening is visible. <50% stenosis: ICA PSV <125 cm/s and plaque or intimal thickening is visible. 50-69% stenosis: ICA PSV is 125-250 cm/s and plaque is visible. >70% stenosis to near occlusion: ICA PSV >250 cm/s with visible plaque and luminal narrowing. DATA REPOSITORY:
[2020-07-26] MEDS: Lisinopril 20 MG TAB PO (08:20)
[2020-07-26] MEDS: Docusate Sodium 100 MG CAP PO (08:20)
--- NOTE | 2020-07-26 09:06 | IN_ITS ---
Date of service: 07/26/20 Time of Service: 09:06 PT Notes Visit Reasons: RECTAL PAIN/POSSIBLE ABCESS/OBSTIPATION Physical Therapy Inpatient Initial Evaluation Date: 07/26/2020 Referring Doctor: Keke Marin MD PT Orders: PT CONSULT: Keila on Sunday for gait/strength and home safety. Patient did not have a stroke Precautions: Fall. Standard. Activity as tolerated. Patient Profile/Admitting Diagnosis: Keyla is a 64-year-old female with past medical history significant for right-sided weakness and aphasia who presented to the ED on 07/24/2020 with continued constipation and rectal pain. Patient is status post exam under anesthesia on 07/25/2020 with external hemorrhoids x 2, external hemorrhoidal tags x 2, internal hemorrhoidal banding, fecal disimpaction. PMHX: Medical History (Updated 07/25/20 @ 11:36 by Keke Marin DO) CVA (cerebral vascular accident) Depression Fissure, anal Hypertension Stroke Surgical History H/O shoulder surgery History of bilateral ligation of fallopian tubes Social History/Home Situation: Lives with daughter in an apartment building with an elevator to get to their apartment. Alternatively there are 18 steps that she is able to negotiate from the entrance of the building to her place. Equipment Owned/DME: None Subjective: Hopeful to have a bowel movement this morning. Pain in rectal area at 3/10. Agreeable to doing ambulation without an assistive device. Indicates that she has an appointment today at [facility] but obviously will not be able to make it. Objective: General Observation: Supine in bed. IV access in L UE. Mental Status: Alert and oriented x4 Pain: 3/10 pain in rectal area ROM: Right Upper Extremity: Shoulder Flexion WFL. Shoulder abduction WFL. Elbow flexion WFL. Wrist flexion WFL. Opening and closing of hand WFL. Left Upper Extremity: Shoulder Flexion WFL. Shoulder abduction WFL. Elbow flexion WFL. Wrist flexion WFL. Opening and closing of hand WFL. Right Lower Extremity: Hip flexion WFL. Hip abduction WFL. Knee flexion WFL. Ankle dorsiflexion WFL. Ankle plantarflexion WFL. Left Lower Extremity: Hip flexion WFL. Hip abduction WFL. Knee flexion WFL. Ankle dorsiflexion WFL. Ankle plantarflexion WFL. Strength: Right Upper Extremity: Shoulder flexors 4/5. Shoulder abductors 4/5. Elbow flexors 5/5. Elbow extensors 5/5. An/Sqq 89(V)15 [employer] System Journeyman strong. Left Upper Extremity: Shoulder flexors 5/5. Shoulder abductors 5/5. Elbow flexors 5/5. Elbow extensors 5/5. An/Sqq 89(V)15 Sonar System Journeyman strong. Right Lower Extremity: Hip flexors 4/5. Hip abductors 5/5. Knee flexors 5/5. Knee extensors 5/5. Ankle dorsiflexors 4/5. Ankle plantarflexors 5/5. Left Lower Extremity:Hip flexors 5/5. Hip abductors 5/5. Knee flexors 5/5. Knee extensors 5/5. Ankle dorsiflexors 5/5. Ankle plantarflexors 5/5. Sensation: Intact as to pain and pressure on bilateral lower extremities. Bed Mobility/Transfers: Rolling supervision Supine to sit supervision Sit to stand standby assist Stand to sit standby assist Bed to chair standby assist Chair to bed standby assist Gait: Patient tolerated level surface ambulation 100 feet without an assistive device requiring only standby assist from PT. States that she has not gotten out of bed and her steps initially appeared slow and cautious. Reports being unable to fully lift her right foot during ambulation activity. Balance: Static Sitting: Normal Dynamic Sitting: Normal Static Standing: Normal Dynamic Standing: Good Special Tests: Mobility Limitations Standardized Measure [facility] AM-PAC 6 clicks Basic Mobility Inpatient Short Form: Raw Score: 23 CMS Score: 11% deficit Informed Consent/Education: Patient instructed in purpose of PT consult and plan of care. Assessment: Keyla is able to tolerate short distance level surface ambulation without the need for an assistive ambulatory device requiring only standby assist with the discomfort in her rectal area being the only limiting factor for her activity tolerance. Patient presents with clinical signs and symptoms consistent with current/admitting diagnoses that have resulted to mobility limitations, gait instability, generalized weakness, and impairment of motor control as demonstrated by the following impairment level findings: 1. Decreased strength to her right shoulder?hip major muscle groups 2. Impaired activity tolerance 3. 3/10 rectal pain Impairments are contributing to the following functional limitations: 1. Increase completion time for mobility ADL performance 2. Increase activity tolerance due to rectal discomfort Patient is assessed as a 68477 low complexity based on the following: History: 64-year-old female with impairment level findings, functional limitations, and past medical history as indicated above Examination: Demonstrable impairment in strength, balance, and mobility level with underlying impairments and functional limitations as documented above Presentation:Evolving Decision Makin low complexity Goals: Goals X1 week 1. Supine-Sit independent 2. Sit-Supine independent 3. Sit-Stand independent 4. Stand-Sit independent 5. Bed-Chair independent 6. Chair-Bed independent 7. Independent gait on level surface without an assistive device for at least 500 feet without report of pain nor dyspnea 8. Independent with home exercise program 9. Good static and dynamic standing balance/tolerance Plan of Care/Treatment Plan: 1-2x/day, 7 days/week x 1 week. Plan of care has been reviewed with the [employer] providing the service under Physical Therapy direction. Initiate Physical Therapy intervention for strengthening, bed mobility, transfers, gait, stairs, balance training, use of assistive device. DISCHARGE RECOMMENDATIONS: Home when medically cleared by surgeon. No equipment needs at this time. TREATMENT CODE/TIME: 9716 1 x 26 minutes beginning at 9:06 AM. Thank you for the opportunity to participate in the care of this patient. Fang Reyez PT, DPT, CLT [facility] [place], [place]
--- NOTE | 2020-07-26 12:19 | PDOC.CMPRO ---
- If Service Date Differs Date of service: 07/26/20 Time of Service: 12:19
--- NOTE | 2020-07-26 13:17 | W.PM.DS.N ---
Date of service: 07/26/20 Time of Service: 13:17 DS: Diagnosis Discharge Diagnosis (1) Rectal pain: Status: Acute (2) Right sided weakness: Status: Acute (3) Aphasia: Status: Acute (4) Fecal impaction in rectum: Status: Acute Discharge Plan Disposition Patient Disposition: HOME Condition: Stable Discharge Details Reason For Visit: RECTAL PAIN/POSSIBLE ABCESS/OBSTIPATION Admit Date/Time: 07/24/20 22:17 Admit Provider: Keke Marin Attending Provider: Keke Marin Primary Care Provider: Lul Figueroa Hospital Course Hospital Course: Mrs. Joy is a 64 year old female admitted yesterday for fecal impaction. She was taken to the Operating room and an exam under anesthesia was done. She was d=found to have a small fissure, a small internal hemorrhoid which was banded and 2 external hemorrhoidal skin tags which were removed. She had soft stool in her rectal vault. No stricture was identified. There was no inflammation. Today patient is eating and drinking. She has had several soft stools today. Pain is minimal. Will discharge patient on daily Miralax and high fiber diet. Follow up in the office to discuss a colonoscopy Home Meds and New Rx's Prescriptions: Continued aspirin 81 mg tablet,chewable 81 mg PO DAILY RF: 0 lisinopril 20 mg tablet 20 mg PO DAILY Qty: 90 RF: 4 atorvastatin [Lipitor] 40 mg tablet 40 mg PO QHS Qty: 90 RF: 4 polyethylene glycol 3350 [Miralax] 17 gram/dose powder 17 g PO DAILY Qty: 119 RF: 3 ibuprofen 200 MG capsule 200 mg PO PRN PRNRF: 0 acetaminophen 650 MG tablet extended release 650 mg PO Q4H PRN (Reason: Pain) Qty: 30 RF: 0 lidocaine 4 % gel 1 applic topical BID Qty: 30 RF: 0 glycerin (adult) Suppository 1 supp AL QD-BID PRNQty: 25 RF: 0 docusate sodium [Colace] 100 mg capsule 100 mg PO BID Qty: 30 RF: 0 Discharge Instructions Instructions: Constipation (DC), Hemorrhoids (GEN), High Fiber Diet (DC), Rubber Band Ligation (DC) Additional Instructions: Activity at Home after surgery: 1. As tolerated Diet, Nutrition, & wound healin. Avoid alcohol until after you are recovered from your surgery 2. Make sure to eat plenty of lean protein (meat, fish, eggs, cottage cheese, beans) 3. Eat a variety of fruits and vegetables. Eat plenty of high fiber foods to avoid constipation. 4. Drink plenty of liquids to stay hydrated and avoid constipation Pain Medications: 1. Tylenol 650mg every 6 hours as needed and Ibuprofen 600 mg every 6 hours as needed. You may alternate between the 2 medications every 3 hours 2. Lidocaine ointment to fissure as needed up to 4 x a day For Constipation: MiraLax as needed for constipation and colace Please call our office if you develop: 1. Fevers >101.5 2. Nausea or Vomiting 3. Worsening pain 4. Redness and thick discharge from the wounds If after hours please call the Hospital at and ask to speak to the on-call surgeon Referrals: Rafaela Man PA [PHYSICIANS SENIOR [employer] SOFTWARE ENGINEER] - 08/12/20 11:30 am (Discuss colonoscopy) Activity:: Activity as Tolerated Equipment/Supplies:: No Equipment Needed Diet:: high fiber diet DS: Summary Time Spent with Patient providing and/or coordinating discharge services: Less than 30 minutes Status at Discharge Functional status at discharge: independent ambulation Overall status at discharge: patient is back to baseline Mental Status: mental status grossly normal Speech and Movement: speech and movement normal Mood: congruent mood Affect: normal affect Exam Const General: cooperative, comfortable and no acute distress Orientation: alert and oriented x3 Resp Effort & Inspection: normal respiratory effort GI Inspection: normal to inspection Palpation: soft, no hepatosplenomegaly and nontender Auscultation: normal bowel sounds Psych Mental Status: mental status grossly normal Speech and Movement: speech and movement normal Mood: congruent mood Affect: normal affect DS: Data Vitals/I&O Vitals and I&O: Vital Signs Temperature 97.9 F 07/26/20 07:30 Temperature Source Tympanic 07/26/20 07:30 Pulse 64 07/26/20 07:30 Pulse Rhythm Regular 07/26/20 08:15 Respiratory Rate 18 07/26/20 07:30 Respiratory Effort Non-Labored 07/26/20 08:15 Respiratory Depth Normal 07/26/20 08:15 Respiratory Pattern Normal 07/26/20 08:15 Blood Pressure 122/71 07/26/20 07:30 Pulse Oximetry 93 07/26/20 07:30 Oxygen Delivery Method Room Air 07/26/20 07:30 Oxygen Flow Rate 0 07/26/20 07:30 Pain Level 3 07/26/20 11:43 Comment 07/25/20 15:21 Intake & Output 07/25/20 07/26/20 07/26/20 23:59 11:59 23:59 Intake Total 840.000 / 2340.000 1240 / 1240 Output Total 950 / 1970 580 / 580 Balance -110.000 / 370.000 660 / 660 Intake: IV 600.000 / 2100.000 1000 / 1000 Oral 240 / 240 240 / 240 Output: Urine 950 / 1970 580 / 580 Other: Urine Color Yellow Yellow Urine Appearance Clear Cloudy Urine Odor None Normal Comment Brief soaked with urine also, patient reports she couldn't make it. Stool Size Smear Moderate Moderate Stool Characteristics Soft Soft Soft Formed Formed Brown Voiding Methods Toilet Bedside Commode [facility] Medical History (Updated 07/25/20 @ 11:36 by Keke Marin DO) CVA (cerebral vascular accident) Depression Fissure, anal Hypertension Stroke Surgical History H/O shoulder surgery History of bilateral ligation of fallopian tubes Social History Smoking/Tobacco Use Status: Never Smoking risk assessment performed?: Yes Alcohol Intake: former Drug use: Never Substance use type: does not use Do you feel safe at home: Yes Do you feel safe in your relationship?: Yes
--- NOTE | 2020-07-26 15:39 | PDOC.CMDIS ---
- If Service Date Differs Date of service: 07/26/20 Time of Service: 15:39 LACE Index Scoring Tool - Questions: Length of Stay (in days): 2 Acuity (Admit via E.D.?): Yes Comorbidities: Cerebrovascular Disease E.D. Visits: 2 - Answers: Total Score: 8 Risk of Readmission: Low Risk Care Management Discharge Reason for Hospitalization: Rectal Pain, possible abcess Discharge Plan: Keyla will return home today with no additional services. Her daughter will drive her home via private vehicle. She will follow up with her PCP and discharge plan of care. Patient/Family Education Needs: Review discharge instructions regarding activity levels and medications, discussion of self care needs including ask me three.
[2020-07-26 15:42] VITALS: BP 120/72; PULSE 67; RESP 16; TEMP 36.8; O2SAT 96
--- NOTE | 2020-07-26 15:46 | W.NUTRFU ---
Date of service: 07/26/20 Time of Service: 15:46 Nutritional Follow up NOTE: 64 year old female admitted with rectal stricture and fecal impaction with hx of CVA and HTN. BMI wnl for age. Following heart healthy diet with excellent intake. Not at nutritional risk. Will continue to follow. Time Spent in Nutritional Counseling and Treatment: 0
--- NOTE | 2020-07-26 19:00 | INDS_ITS ---
Date of service: 07/26/20 PT Notes Visit Reasons: RECTAL PAIN/POSSIBLE ABCESS/OBSTIPATION Physical Therapy Inpatient Discharge Summary Date: 07/26/2020 Dates of Service: 07/26/2020 only This is a clinical summary of care provided on the duration of dates listed above. No charge was made in the completion of this documentation. Referring Doctor: Keke Marin MD PT Orders: PT CONSULT: Eval on Sunday for gait/strength and home safety. Patient did not have a stroke Precautions: Fall. Standard. Activity as tolerated. Patient Profile/Admitting Diagnosis: Keyla is a 64-year-old female with past medical history significant for right-sided weakness and aphasia who presented to the ED on 07/24/2020 with continued constipation and rectal pain. Patient is status post exam under anesthesia on 07/25/2020 with external hemorrhoids x 2, external hemorrhoidal tags x 2, internal hemorrhoidal banding, fecal disimpaction. PMHX: Medical History (Updated 07/25/20 @ 11:36 by Keke Marin DO) CVA (cerebral vascular accident) Depression Fissure, anal Hypertension Stroke Surgical History H/O shoulder surgery History of bilateral ligation of fallopian tubes Social History/Home Situation: Lives with daughter in an apartment building with an elevator to get to their apartment. Alternatively there are 18 steps that she is able to negotiate from the entrance of the building to her place. Equipment Owned/DME: None Subjective: NT. See most recent ECONOMIC DEVELOPMENT MANAGER notes. Objective: General Observation: NT. See most recent ECONOMIC DEVELOPMENT MANAGER notes. We are working with a different well with these. Mental Status: NT. See most recent ECONOMIC DEVELOPMENT MANAGER notes. Pain: NT. See most recent ECONOMIC DEVELOPMENT MANAGER notes. ROM: Right Upper Extremity: Shoulder Flexion WFL. Shoulder abduction WFL. Elbow flexion WFL. Wrist flexion WFL. Opening and closing of hand WFL. Left Upper Extremity: Shoulder Flexion WFL. Shoulder abduction WFL. Elbow flexion WFL. Wrist flexion WFL. Opening and closing of hand WFL. Right Lower Extremity: Hip flexion WFL. Hip abduction WFL. Knee flexion WFL. Ankle dorsiflexion WFL. Ankle plantarflexion WFL. Left Lower Extremity: Hip flexion WFL. Hip abduction WFL. Knee flexion WFL. Ankle dorsiflexion WFL. Ankle plantarflexion WFL. Strength: Right Upper Extremity: Shoulder flexors 4/5. Shoulder abductors 4/5. Elbow flexors 5/5. Elbow extensors 5/5. Material Flow Engineer strong. Left Upper Extremity: Shoulder flexors 5/5. Shoulder abductors 5/5. Elbow flexors 5/5. Elbow extensors 5/5. Material Flow Engineer strong. Right Lower Extremity: Hip flexors 4/5. Hip abductors 5/5. Knee flexors 5/5. Knee extensors 5/5. Ankle dorsiflexors 4/5. Ankle plantarflexors 5/5. Left Lower Extremity:Hip flexors 5/5. Hip abductors 5/5. Knee flexors 5/5. Knee extensors 5/5. Ankle dorsiflexors 5/5. Ankle plantarflexors 5/5. Sensation: Intact as to pain and pressure on bilateral lower extremities. Bed Mobility/Transfers: Rolling supervision Supine to sit supervision Sit to stand standby assist Stand to sit standby assist Bed to chair standby assist Chair to bed standby assist Gait: Patient tolerated level surface ambulation 100 feet without an assistive device requiring only standby assist from PT. States that she has not gotten out of bed and her steps initially appeared slow and cautious. Reports being unable to fully lift her right foot during ambulation activity. Balance: Static Sitting: Normal Dynamic Sitting: Normal Static Standing: Normal Dynamic Standing: Good Assessment: Keyla is able to tolerate short distance level surface ambulation without the need for an assistive ambulatory device for 100 feet requiring only standby assist with the discomfort in her rectal area being the only limiting factor for her activity tolerance. Patient continues to present with clinical signs and symptoms consistent with current/admitting diagnoses that have resulted to mobility limitations, gait instability, generalized weakness, and impairment of motor control as demonstrated by the following impairment level findings: 1. Decreased strength to her right shoulder?hip major muscle groups 2. Impaired activity tolerance 3. 3/10 rectal pain Impairments are continuing to contribute to the following functional l imitations: 1. Increase completion time for mobility ADL performance 2. Increase activity tolerance due to rectal discomfort Goals: Goals X1 week 1. Supine-Sit independent NOT MET 2. Sit-Supine independent NOT MET 3. Sit-Stand independent NOT MET 4. Stand-Sit independent NOT MET 5. Bed-Chair independent NOT MET 6. Chair-Bed independent NOT MET 7. Independent gait on level surface without an assistive device for at least 500 feet without report of pain nor dyspnea NOT MET 8. Independent with home exercise program NOT MET 9. Good static and dynamic standing balance/tolerance NOT MET DISCHARGE RECOMMENDATIONS: Home when medically cleared by surgeon. No equipment needs at this time. TREATMENT CODE/TIME: OK Thank you for the opportunity to participate in the care of this patient. Fang Reyez PT, DPT, CLT [facility] [place], [place]
== END 2020-07-26 16:58 | disposition home or self-care (01) | DRG 349 ==
LOC: ER 07-25 00:11 → MS 07-25 03:06
PROVIDERS: Physician Assistant; Admitting Provider Surgery; Emergency Provider Student in an Organized Health Care Education/Training Program; PCP Nurse Practitioner Family; Visit Provider Surgery
PROC: 065Y3ZC Destruction of Hemorrhoidal Plexus, Percutaneous Approach (ICD-10-PCS; CPT 46040; principal; 2020-07-25 09:00)
DX: K62.4 Stenosis of anus and rectum (principal); K64.4 Residual hemorrhoidal skin tags; K64.8 Other hemorrhoids; K56.41 Fecal impaction; F32.9 Major depressive disorder, single episode, unspecified; I10 Essential (primary) hypertension; Z86.73 Personal history of transient ischemic attack (TIA), and cerebral infarction without residual deficits; Z86.718 Personal history of other venous thrombosis and embolism; K60.2 Anal fissure, unspecified; M62.81 Muscle weakness (generalized)
CPT/HCPCS: 46221; 46930; 36415; 80048; 80053; 83690; 87635; 96361; 96365; 96375; 97161; 99221; 99232; 99285; NC; 70450; 74176; 81003; 81015; 85025; 86140; 93880; J1100; J1885; J2001; J2250; J2370; J2405; J2543; J3010

== ENCOUNTER 2020-07-26 21:31 | Emergency (ER) | payer MEDICARE, OTHER, SELFPAY ==
[2020-07-26] VITALS (14 sets, daily range): BP systolic 139–158; BP diastolic 63–69; PULSE 79–89; RESP 14; TEMP 36.5; O2SAT 94–99
--- NOTE | 2020-07-26 21:38 | ED.GENADUL_ITS ---
Discharge Plan Disposition Patient Disposition: HOME Condition: Stable Discharge Details Clinical Impression: Rectal pain, Abdominal pain, Rectal bleeding, Post-op bleeding Primary Care Provider: Lul Figueroa ED Provider: Nuno Linton Home Meds and New Rx's Prescriptions: Continued aspirin 81 mg tablet,chewable 81 mg PO DAILY RF: 0 lisinopril 20 mg tablet 20 mg PO DAILY Qty: 90 RF: 4 atorvastatin [Lipitor] 40 mg tablet 40 mg PO QHS Qty: 90 RF: 4 polyethylene glycol 3350 [Miralax] 17 gram/dose powder 17 g PO DAILY Qty: 119 RF: 3 ibuprofen 200 MG capsule 200 mg PO PRN PRNRF: 0 acetaminophen 650 MG tablet extended release 650 mg PO Q4H PRN (Reason: Pain) Qty: 30 RF: 0 lidocaine 4 % gel 1 applic topical BID Qty: 30 RF: 0 glycerin (adult) Suppository 1 supp IN QD-BID PRNQty: 25 RF: 0 docusate sodium [Colace] 100 mg capsule 100 mg PO BID Qty: 30 RF: 0 Discharge Instructions Instructions: Rectal Bleeding (ED) Additional Instructions: At this time suture was placed in the stop the bleeding at your previous hemorrhoid site. You may experience some continued mild oozing for the next day or so. This can be normal. If you have a significant amount of bleeding again please contact us or return immediately. Please call your surgeon tomorrow to inform her of your visit today. I will copy your visit note to her as well. Please wipe very gently as you will be tender in your rectal region. If you notice any worsening of your symptoms, or any new symptoms such as vomiting, diarrhea, fever, chills, shortness of breath, chest pain, numbness, weakness, or fainting , please return immediately to the emergency department for reevaluation. Please follow up with your primary care provider as soon as possible for reassessment and reevaluation. As always, it was a pleasure participating in your medical care today. Referrals: Juana Michael MD [ [facility] STAFF PHYSICIAN] - Keke Marin DO [OSTEOPATHIC DOCTOR] - Medical Decision Making <Arnold Santoyo MD - Last Filed: 07/26/20 22:14> 64 yo female with hx of hld, prior cva, htn, who was just d/c'd from the hospital after being admitted for rectal pain and had two hemorrhoids externally removed, comes in with complaints of bleeding with bowel movements tonight and rectal pain. Denies abdominal pain, fevers, chills, n/v. Has soft abdomen with tenderness in the lower abdomen and states her abdomen has been hurting most of the day. On rectal exam on the left side of the external anus she has a 1cm area that appears to be where a hemorrhoid was removed that is bleeding. Given her pain will obtain labs and ct imaging and discuss with surgery Spoke with Dr. Kaplan who recommended a figure of 8 stitch to close the bleeding area, this was done after patient's verbal consent and she tolerated well without complications. Awaiting labs and ct imaging pt signed out to oncoming provider pending lab and ct results Differential Diagnosis Differential Diagnosis: post operative bleeding, fissure, hemorrhoids Medical Records Medical records reviewed: Yes I reviewed the patient's medical records. Lab Data Lab results reviewed: Yes I reviewed the patient's lab results. <Nuno Linton, DO - Last Filed: 07/26/20 23:23> Patient was signed out to me by my colleague Dr. Arnold Santoyo. Please refer to his HPI, physical exam assessment and plan. At time of signout we are pending CT scan. It was felt that if the CT showed no acute or life-threatening process the patient can be discharged home. Patient did come in for rectal bleeding, she had a [id number] stitch placed into her nose and hemorrhoid which resolved the bleeding. While here the patient remained hemodynamically stable. Hemoglobin is stable. Mild white count, CT scan shows mild proctitis which is nonspecific, no other significant concerning abnormality otherwise. Review of operative report from when she was here just a day ago demonstrates that even with the same CT scan findings there is no evidence of concerning proctitis or perirectal abscess at that time clinically either. Currently the patient has no pain in the rectal region, she feels well, shows no signs of instability, systemic infection, or acute life-threatening etiology requiring surgical management or inpatient admission. Patient will be discharged with outpatient follow-up with her surgeon. Discussed red flags which return. Discussed the case with the patient's daughter and over the phone. I have extensively reviewed the treatment plan and discharge instructions with the patient and their family. I have addressed all patient concerns at this time. The patient and family was made aware of what symptoms to monitor for that would warrant a return to the emergency department. Discussed the plan with the patient and family, they demonstrate verbal understanding and agreement with our assessment and plan at this time. The documentation in this chart was dictated using [employer] dictation software. Please excuse any dictation errors. FINDINGS: Aorta: No aortic aneurysm. No aortic dissection. Celiac trunk and mesenteric arteries: No occlusion or significant stenosis. Renal arteries: No occlusion or significant stenosis. Right iliac arteries: No occlusion or significant stenosis. Left iliac arteries: No occlusion or significant stenosis. Liver: Hepatic steatosis is present. Hepatic steatosis is present. Gallbladder and bile ducts: The gallbladder demonstrates slight asymmetric wall thickening involving the anterior wall and fundus. This may reflects artifact versus adenomyomatosis. Pancreas: Unremarkable. No mass. No ductal dilation. Spleen: Unremarkable. No splenomegaly. Adrenal glands: Unremarkable. No mass. Kidneys and ureters: Unremarkable. No solid mass. No hydronephrosis. Stomach and bowel: Colonic diverticulosis is present without evidence for inflammation. Prominent rectal vasculature may reflect hemorrhoidal varices. Appendix: No evidence of appendicitis. Intraperitoneal space: Unremarkable. No free air. No significant fluid collection. Lymph nodes: Unremarkable. No enlarged lymph nodes. Urinary bladder: Unremarkable. No mass. Reproductive: Unremarkable as visualized. Bones/joints: No acute fracture. No dislocation. Soft tissues: Unremarkable. Other findings: Rectal wall thickening and perirectal stranding compatible with a nonspecific proctitis, without obvious contrast blush on arterial phase imaging. IMPRESSION: 1. Rectal wall thickening and perirectal stranding compatible with a nonspecific proctitis, without obvious contrast blush on arterial phase imaging. 2. Prominent rectal vasculature may reflect hemorrhoidal varices. Thank you for allowing us to participate in the care of your patient. Dictated and Authenticated by: Fili Delatorre MD 07/26/2020 11:06 PM Eastern Time ([place] & [place]) HPI <Arnold Santoyo MD - Last Filed: 07/26/20 22:14> General Mode of arrival: ambulatory . Date/Time Provider Initiated Documentation: 07/26/20 21:31 . Limitations to Documentation: no limitations . Information obtained by: patient . History of Present Illness 64 year old F presents to the emergency department with the chief complaint of rectal bleeding, described as moderate, Patient started experiencing this day(s) (1) and it has been other (with bowel movements). No relieving factors improve symptom(s), No exacerbating factors reported . Patient notes no other symptoms.. Patient did receive the following treatments prior to arrival, none Related Data Home Medications Medication Instructions Recorded Confirmed acetaminophen 650 mg PO Q4H PRN #30 tablet.er 07/27/17 07/26/20 ibuprofen 200 mg PO PRN PRN 07/27/17 07/26/20 aspirin 81 mg chewable tablet 81 mg PO DAILY 07/05/20 07/26/20 lisinopril 20 mg tablet 20 mg PO DAILY #90 tab 07/14/20 07/26/20 atorvastatin 40 mg tablet 40 mg PO QHS #90 tab 07/15/20 07/26/20 docusate sodium [Colace] 100 mg PO BID #30 cap 07/21/20 07/26/20 glycerin (adult) 1 supp IN QD-BID PRN #25 ea 07/21/20 07/26/20 lidocaine 1 applic TOPICAL BID #30 g 07/21/20 07/26/20 polyethylene glycol 3350 17 17 g PO DAILY #119 g 07/23/20 07/26/20 gram/dose oral powder Previous Rx's Medication Instructions Recorded acetaminophen 650 mg PO Q4H PRN #30 tablet.er 07/27/17 lisinopril 20 mg tablet 20 mg PO DAILY #90 tab 07/14/20 atorvastatin 40 mg tablet 40 mg PO QHS #90 tab 07/15/20 docusate sodium [Colace] 100 mg PO BID #30 cap 07/21/20 glycerin (adult) 1 supp IN QD-BID PRN #25 ea 07/21/20 lidocaine 1 applic TOPICAL BID #30 g 07/21/20 polyethylene glycol 3350 17 17 g PO DAILY #119 g 07/23/20 gram/dose oral powder Allergies Allergy/AdvReac Type Severity Reaction Status Date / Time metaxalone Allergy Severe Itching Verified 07/26/20 21:39 strawberry Allergy Severe Hives Verified 07/26/20 21:39 General Stated Complaint: GI Bleed ZACK: 2 Review of Systems <Arnold Santoyo MD - Last Filed: 07/26/20 22:14> All systems reviewed & are unremarkable except as noted in HPI and below Constitutional Constitutional: Denies chills, Denies fever(s) and Denies weakness Cardiovascular Cardiovascular: Denies chest pain and Denies dyspnea Respiratory Respiratory: Denies cough and Denies dyspnea Gastrointestinal Gastrointestinal: Denies nausea and Denies vomiting Neurologic Neurologic: Denies weakness PFS <Arnold Santoyo MD - Last Filed: 07/26/20 22:14> Medical History (Updated 07/26/20 @ 22:12 by Arnold Santoyo MD) CVA (cerebral vascular accident) Depression Fissure, anal Hypertension Stroke Surgical History H/O shoulder surgery History of bilateral ligation of fallopian tubes Social History Smoking/Tobacco Use Status: Never Smoking risk assessment performed?: Yes Alcohol Intake: former Drug use: Never Substance use type: does not use Do you feel safe at home: Yes Do you feel safe in your relationship?: Yes Exam <Arnold Santoyo MD - Last Filed: 07/26/20 22:14> Const General: no acute distress Orientation: alert HENWI Head: normal to inspection Ears: external ears normal General nose exam: external nose normal Mouth: moist mucous membranes Eyes General: appearance normal, both eyes and all related structures Neck Neck: normal visual inspection Resp Effort & Inspection: normal respiratory effort and able to speak in complete sentences Cardio Rate: regular rate Skin General skin exam: no rashes or lesions noted Neuro General: patient alert and patient oriented x3 Extrem General: normal to inspection Psych Mental Status: mental status grossly normal Course <Arnold Santoyo MD - Last Filed: 07/26/20 22:14> Vital Signs Vital signs: Vital Signs Temperature 36.5 C 07/26/20 21:34 Pulse 89 07/26/20 21:34 Respiratory Rate 14 07/26/20 21:34 Blood Pressure 158/65 H 07/26/20 21:34 Pulse Oximetry 97 07/26/20 21:34 Temperature 36.5 C 07/26/20 21:34 Temperature Source Skin 07/26/20 21:34 Pulse 89 07/26/20 21:34 Respiratory Rate 14 07/26/20 21:34 Respiratory Effort Non-Labored 07/26/20 21:37 Blood Pressure 158/65 H 07/26/20 21:34 Blood Pressure Position Supine 07/26/20 21:34 Pulse Oximetry 97 07/26/20 21:34 Oxygen Delivery Method Room Air 07/26/20 21:34 Oxygen Flow Rate 0 07/26/20 21:34 Pain Level 0 07/26/20 21:34 Procedures <Arnold Santoyo MD - Last Filed: 07/26/20 22:14> Other Description: post op bleeding from hemorrhoidectomy site. Under sterile techinque used 5cc of 1% lidocaine with epi and then used a 4-0 prolene to close the wound with 1 suture and patient toleratede well without complications Sign Out <Arnold Santoyo MD - Last Filed: 07/26/20 22:14> Sign Out Data: Sign Out Comment: s/p hemorroidectomy has had increased abdominal pain today and rectal bleeding. Closed bleeding removal site with figure of 8 stitch, pending imaging results Last updated by Arnold Santoyo MD at 07/26/20 22:15
[2020-07-26 21:56] LABS: Abs Immature Grans 0.11 10^3/uL (0.0-0.06); Absolute Basophil Count 0.12 10^3/uL (0.0-0.2); Basophils % 0.8; Eosinophils % 1.7; HCT 38.3 % (36.0-46.0); HGB 11.4 g/dL (11.2-15.7); Immature Grans % 0.7; Lymphocytes % 23.7; MCH 20.9 pg (27.0-33.0); MCHC 29.8 % (32.0-36.0); MCV 70.3 fL (80-95); MPV 10.2 fL (8.0-11.0); Monocytes % 7.4; Neutrophils % 65.7; Nucleated RBC 0 %; Platelet Count 632 10^3/uL (130-400); RBC 5.45 10^6/uL (3.93-5.22); RDW 24.1 % (11.7-14.6); RDW-SD 57.1 fL; WBC 14.95 10^3/uL (4.4-10.8)
[2020-07-26 21:58] LABS: Absolute Eosinophil Count 0.25 10^3/uL (0.0-0.7); Absolute Lymphocyte Count 3.54 10^3/uL (1.2-3.4); Absolute Monocyte Count 1.11 10^3/uL (0.1-0.8); Absolute Neutrophil Count 9.82 10^3/uL (1.2-6.7)
--- NOTE | 2020-07-26 22:00 | DI.CT_ITS ---
EXAM: CT ABDOMEN PELVIS CTA CLINICAL HISTORY: abdominal pain. TECHNIQUE: Imaging Protocol: Axial CT angiography was performed with multi-slice acquisition and m ulti-planar and/or 3D reconstructions. CONTRAST MATERIAL: Intravenous: Omnipaque 350 Contrast volume:64 ml Oral: no COMPARISON: CT CT ABDOMEN PELVIS WO from 07/24/2020 FINDINGS: Vascular Structures: Celiac [place]/SMA: No evidence of stenosis. Renal Arteries: No evidence of stenosis. There is a single renal artery perfusing each kidney. Aorta: No aneurysm. No dissection. Mild atherosclerotic changes. Pelvis: Iliac Arteries: No evidence of stenosis. Common Femoral Arteries: No evidence of stenosis. Heart: Not fully included on the exam. Suggestion of left atrial enlargement. Soft Tissues: Lung bases:Normal. Liver: Normal density. No measurable mass. Gallbladder and biliary tract: No radiodense calculus or dilation. Question of focal wall thickening near the fundus. This could represent focal adenomyomatosis. Pancreas: Normal density, no abnormal calcifications or inflammatory process. Spleen: Normal. Kidneys: Normal size, contour and axis. No radiodense stones or obstructive uropathy. No masses seen. Adrenal glands: No masses seen. Bladder: Nearly empty., no gross wall thickening. Bowel: There is circumferential rectal wall thickening. There is enhancement of the mucosa consisten t with inflammation. There is diverticulosis of the descending and sigmoid colon but no evidence of diverticulitis. Increased quantity of stool seen in the ascending colon. Peritoneal cavity: No ascites, collection or mesenteric inflammatory response. Bones: Mild degenerative changes in the spine. Lymph nodes: Within normal limits. Reproductive: Unremarkable. IMPRESSION: Rectal wall thickening and enhancement consistent with proctitis. There is no evidence of abscess. RADIATION DOSE DELIVERED: 663.2mGy.cm Total DLP DATA REPOSITORY: All CT scans at this facility are submitted to the National Radiology Data Registry (NRDR) Dose Index Registry (DIR) with the [employer] (ACR). RADIATION OPTIMIZATION: All CT scans at this facility use at least one of these dose optimization te chniques: automated exposure control; mA and/or kV adjustment per patient size (includes targeted exa ms where dose is matched to clinical indication); or iterative reconstruction.
[2020-07-26 22:04] LABS: Diff Comment Agrees w/ Instrument
[2020-07-26 22:08] LABS: Bilirubin, Direct 0.2 mg/dL (0.0-0.2); Lipase 275 U/L (73-393)
[2020-07-26 22:10] LABS: Anisocytosis 1+; Hypochromasia 1+; Microcytosis 1+; Poikilocytes 1+
[2020-07-26 22:11] LABS: ALT 25 U/L (14-59); AST 16 U/L (15-37); Albumin 3.3 g/dL (3.4-5.0); Alkaline Phosphatase 90 U/L (46-116); Anion Gap 6.9 mmol/L (3-11); BUN 25 mg/dL (7-18); Bilirubin, Total 0.6 mg/dL (0.2-1.0); CO2 28.1 mmol/L (21.0-32.0); CREATININE 1.2 mg/dL (0.55-1.02); Calcium 8.5 mg/dL (8.5-10.1); Chloride 109 mmol/L (98-107); Estimated GFR 45.09 (mL/min/1.73m2); Glucose 94 mg/dL (74-106); Potassium 4.3 mmol/L (3.5-5.1); Sodium 144 mmol/L (136-145); Total Protein 7.1 g/dL (6.4-8.2)
[2020-07-26 22:16] LABS: INR 1.1 (0.9-1.1); PTT Activated 24.3 sec (21.0-27.5); Prothrombin Time 10.7 sec (9.3-11.0)
[2020-07-26] MEDS: Omnipaque 350 MG/ML 100 ML BTL IJ (22:23)
[2020-07-26] MEDS: Normal Saline - Diluent 50 ML VIAL IV (22:24)
--- NOTE | 2020-07-26 23:07 | DI.VRAD_ITS ---
PROCEDURE INFORMATION: Exam: CT Angiography Abdomen and Pelvis With Contrast Exam date and time: 07/26/2020 10:10 PM Age: 64 years old Clinical indication: Abdominal pain; Generalized; Additional info: Rectal bleeding TECHNIQUE: Imaging protocol: Computed tomographic angiography of the abdomen and pelvis with contrast material. 3D rendering (Not supervised by radiologist): MIP and/or 3D reconstructed images were created by the technologist. COMPARISON: CT ABDOMEN PELVIS WO 07/24/2020 8:42 PM FINDINGS: Aorta: No aortic aneurysm. No aortic dissection. Celiac trunk and mesenteric arteries: No occlusion or significant stenosis. Renal arteries: No occlusion or significant stenosis. Right iliac arteries: No occlusion or significant stenosis. Left iliac arteries: No occlusion or significant stenosis. Liver: Hepatic steatosis is present. Hepatic steatosis is present. Gallbladder and bile ducts: The gallbladder demonstrates slight asymmetric wall thickening involving the anterior wall and fundus. This may reflects artifact versus adenomyomatosis. Pancreas: Unremarkable. No mass. No ductal dilation. Spleen: Unremarkable. No splenomegaly. Adrenal glands: Unremarkable. No mass. Kidneys and ureters: Unremarkable. No solid mass. No hydronephrosis. Stomach and bowel: Colonic diverticulosis is present without evidence for inflammation. Prominent rectal vasculature may reflect hemorrhoidal varices. Appendix: No evidence of appendicitis. Intraperitoneal space: Unremarkable. No free air. No significant fluid collection. Lymph nodes: Unremarkable. No enlarged lymph nodes. Urinary bladder: Unremarkable. No mass. Reproductive: Unremarkable as visualized. Bones/joints: No acute fracture. No dislocation. Soft tissues: Unremarkable. Other findings: Rectal wall thickening and perirectal stranding compatible with a nonspecific proctitis, without obvious contrast blush on arterial phase imaging. IMPRESSION: 1. Rectal wall thickening and perirectal stranding compatible with a nonspecific proctitis, without obvious contrast blush on arterial phase imaging. 2. Prominent rectal vasculature may reflect hemorrhoidal varices. Dictated and Authenticated by: Fili Delatorre MD. Ordering:ANDREA Barrett MD
== END 2020-07-26 23:28 | disposition home or self-care (01) ==
PROVIDERS: Emergency Medicine; Emergency Provider Student in an Organized Health Care Education/Training Program; PCP Nurse Practitioner Family
DX: K62.89 Other specified diseases of anus and rectum (principal); K62.5 Hemorrhage of anus and rectum; R10.30 Lower abdominal pain, unspecified; K91.840 Postprocedural hemorrhage of a digestive system organ or structure following a digestive system procedure; Y83.8 Other surgical procedures as the cause of abnormal reaction of the patient, or of later complication, without mention of misadventure at the time of the procedure
CPT/HCPCS: 36415; 80053; 83690; 86850; 86900; 86901; 99285; 74174; 82248; 85025; 85610; 85730; 99284; J3490

== ENCOUNTER → 2020-08-12 11:32 | Outpatient (BNVA) | payer MEDICARE, OTHER, SELFPAY | PROVIDERS: PCP Nurse Practitioner Family; Referring Provider Nurse Practitioner Family; Visit Provider Physical Therapy Assistant | DX: K64.8 Other hemorrhoids (principal); K59.09 Other constipation; I10 Essential (primary) hypertension | CPT/HCPCS: 99214 ==

== ENCOUNTER 2020-10-07 03:10 | Outpatient (CLI) | payer MEDICARE, OTHER, SELFPAY ==
--- NOTE | 2020-10-07 14:00 | NS.NUTBLAN_ITS ---
Keyla referred for Medical Nutrition Therapy for constipation, and to learn about optimal diet s/p CVA in June 2020. Here today with her daughter- recently moved in with daughter. 5'0 127 lbs. BMI 24 wnl. Has lost 25 lbs in last 6 months since stroke as reports fear of eating. Reports that she doesn't know what to eat anymore and that she is not enjoying a lot of the food recommended to to such as almond milk, egg whites, smart balance. No longer c/o constipation with use of colace, mirilax. Home meds include 20 mg lisinopril, 40 mg atorvastatin, 81 mg aspirin. Labs from June (prior to starting lipid lowering meds): Chol: 295 mg/dl, LDL 205, HDL: 52, Tri. Reports BP well controlled. Due for labs in next month to asses lipid panel. Keyla reports high amount of stress as has recently left her . She reports sleeping less than 4 hours per night and often can only sleep 1 hour at a time. Has tried melatonin without affect. Walks 20-30 min daily which has lead to beneficial weight loss in last 6 months. Reports leg cramps some days. Diet recall indicates very limited dietary intake with fear associated with foods that may have fats in them. Reviewed principles of Mediterranean diet and its cardiovascular benefits. Encouraged following a diet with < 15 g saturated fat daily, < 300 mg cholesterol daily, < 1500 mg sodium with emphasis on complex carbs, lean protein and large amounts of nuts, beans, unsaturated fats and non starchy vegetables. Also, encouraged her to try to include some of her favorite foods into diet as balance and variety is chan to healthy nutrition. Keyla was happy to know that she could use whole milk (less than 1/2 cup daily) in her oatmeal and that she could use sugar instead of honey as long as simple sugar intake is < 60 g daily. Provided written material on Mediterranean Diet and follow up information if needs further guidance. Recommend, continue with exercise and well balanced diet, talk to MD about sleeping aide and treatment for leg cramps for more restful sleep and recheck lipids in next couple months.
== END 2020-10-07 03:11 | disposition home or self-care (01) ==
LOC: DS 03:10
PROVIDERS: PCP Nurse Practitioner Family; Visit Provider Dietitian, Registered
DX: K59.00 Constipation, unspecified (principal); Z86.73 Personal history of transient ischemic attack (TIA), and cerebral infarction without residual deficits; Z73.3 Stress, not elsewhere classified; Z71.3 Dietary counseling and surveillance
CPT/HCPCS: 97802

== ENCOUNTER 2020-12-01 11:03 | Emergency (ER) | payer MEDICARE, OTHER, SELFPAY ==
[2020-12-01] VITALS (18 sets, daily range): BP systolic 99–127; BP diastolic 46–72; PULSE 59–80; RESP 10–21; TEMP 36.7; O2SAT 96–100
--- NOTE | 2020-12-01 11:00 | RT.EKG_ITS ---
APPROVED REPORT Exam: Resting ECG Reason for Exam: syncope Patient Location: E HR:61 bpm ECG Measurements Heart Rate 61 AXIS MA 174 P 51 QRSd 80 QRS 16 QT 394 T 49 QTc 396 Conclusion Sinus rhythm...normal P axis, V-rate 60- 99
[2020-12-01 11:28] LABS: Abs Immature Grans 0.08 10^3/uL (0.0-0.06); Absolute Eosinophil Count 0.22 10^3/uL (0.0-0.7); Absolute Lymphocyte Count 2.23 10^3/uL (1.2-3.4); Absolute Monocyte Count 0.72 10^3/uL (0.1-0.8); Absolute Neutrophil Count 5.37 10^3/uL (1.2-6.7); Basophils % 1.1; Eosinophils % 2.5; HCT 42.1 % (36.0-46.0); HGB 12.7 g/dL (11.2-15.7); Immature Grans % 0.9; Lymphocytes % 25.6; MCHC 30.2 % (32.0-36.0); MCV 72.8 fL (80-95); MPV 9.9 fL (8.0-11.0); Monocytes % 8.3; Neutrophils % 61.6; Nucleated RBC 0 %; RBC 5.78 10^6/uL (3.93-5.22); RDW 22.6 % (11.7-14.6); RDW-SD 56.2 fL; WBC 8.72 10^3/uL (4.4-10.8)
--- NOTE | 2020-12-01 11:34 | ED.GENADUL_ITS ---
Discharge Plan Disposition Patient Disposition: HOME Condition: Stable Discharge Details Clinical Impression: Syncope Primary Care Provider: [facility] ED Provider: Edith Marsh Home Meds and New Rx's Prescriptions: Continued aspirin 81 mg tablet,chewable 81 mg PO DAILY RF: 0 lisinopril 20 mg tablet 20 mg PO DAILY Qty: 90 RF: 4 atorvastatin [Lipitor] 40 mg tablet 40 mg PO QHS Qty: 90 RF: 4 polyethylene glycol 3350 [Miralax] 17 gram/dose powder 17 g PO DAILY Qty: 119 RF: 3 ibuprofen 200 MG capsule 200 mg PO PRN PRNRF: 0 acetaminophen 650 MG tablet extended release 650 mg PO Q4H PRN (Reason: Pain) Qty: 30 RF: 0 docusate sodium [Colace] 100 mg capsule 100 mg PO BID Qty: 30 RF: 0 Discontinued ropinirole [Requip] 3 mg tablet 3 mg PO QHS Qty: 90 RF: 3 Discharge Instructions Instructions: Syncope (ED) Additional Instructions: Stop taking your Requip Follow-up with your doctor tomorrow Stay hydrated No driving for 24 hours Return earlier should you have new or worsening complaints including recurrent episodes of syncope Use caution when going from sitting to standing Medical Decision Making Patient is alert and oriented, orthostatics are negative She was observed for 4 hours on telemetry without obvious dysrhythmia EKG is normal sinus rhythm without QTC prolongation, electrolytes are within normal limits Thyroid in normal limits CT brain does not show acute abnormality per my review and radiologist interpretation, I discussed with Dr. Strange she will need recheck in 24 to 48 hours with her primary care physician, she is given a threshold to return should she have new or worsening complaints Chest x-ray within normal limits She will discontinue her Requip as I suspect this is partially the cause of her symptoms She is discharged home in stable condition with stable vitals, she is able to tolerate p.o. She is ambulatory with steady gait Medical Records Medical records reviewed: Yes I reviewed the patient's medical records. Lab Data Lab results reviewed: Yes I reviewed the patient's lab results. ECG Data Prior ECG tracings: available for review HPI General Mode of arrival: ambulatory . Date/Time Provider Initiated Documentation: 12/01/20 11:05 . Limitations to Documentation: no limitations . Information obtained by: patient . HPI Narrative: This 63-year-old female with history of thrombocytosis, rectal bleeding, CVA, hypertension presents for report of syncopal events. She states she woke up after taking 3 mg of Requip last evening and felt nauseous, and the toilet time a bowel movement with one episode of vomiting and then start up. She states that she felt very nauseous and everything went black . She states she thinks she landed on her hand and knees. When she awoke she was in this position. She states that her daughter ran in and witnessed the event. There was no reported seizure-like activity. Patient does have a history of stroke, she has right-sided deficit from the June. Her symptoms are not been with her prior episode. She states that she immediately felt alert and oriented. She denies any chest pain or shortness of breath. She denies any fever or chills. She denies any vision change. She denies any urinary complaints. Related Data Home Medications Medication Instructions Recorded Confirmed acetaminophen 650 mg PO Q4H PRN #30 tablet.er 07/27/17 12/01/20 ibuprofen 200 mg PO PRN PRN 07/27/17 12/01/20 aspirin 81 mg chewable tablet 81 mg PO DAILY 07/05/20 12/01/20 lisinopril 20 mg tablet 20 mg PO DAILY #90 tab 07/14/20 12/01/20 atorvastatin 40 mg tablet 40 mg PO QHS #90 tab 07/15/20 12/01/20 docusate sodium [Colace] 100 mg PO BID #30 cap 07/21/20 12/01/20 polyethylene glycol 3350 17 17 g PO DAILY #119 g 07/23/20 12/01/20 gram/dose oral powder Previous Rx's Medication Instructions Recorded acetaminophen 650 mg PO Q4H PRN #30 tablet.er 07/27/17 lisinopril 20 mg tablet 20 mg PO DAILY #90 tab 07/14/20 atorvastatin 40 mg tablet 40 mg PO QHS #90 tab 07/15/20 docusate sodium [Colace] 100 mg PO BID #30 cap 07/21/20 polyethylene glycol 3350 17 17 g PO DAILY #119 g 07/23/20 gram/dose oral powder Allergies Allergy/AdvReac Type Severity Reaction Status Date / Time metaxalone Allergy Severe Itching Verified 12/01/20 11:10 strawberry Allergy Severe Hives Verified 12/01/20 11:10 General Stated Complaint: Dizzy/Sync ZACK: 2 Review of Systems All systems reviewed & are unremarkable except as noted in HPI and below PFSH Medical History (Updated 12/01/20 @ 14:20 by NEETU Albrecht) CVA (cerebral vascular accident) Depression Fissure, anal Hypertension Stroke Surgical History H/O shoulder surgery History of bilateral ligation of fallopian tubes Social History Smoking/Tobacco Use Status: Never Smoking risk assessment performed?: Yes Alcohol Intake: former Drug use: Never Substance use type: does not use Do you feel safe at home: Yes Do you feel safe in your relationship?: Yes Exam Const General: cooperative, comfortable and no acute distress HENMT Head: normal to inspection Mouth: moist mucous membranes abnormal Eyes Pupils: PERRL Neck Other: No carotid bruit Resp Effort & Inspection: normal respiratory effort Auscultation: clear to auscultation bilaterally Cardio Rate: regular rate Rhythm: regular rhythm GI Inspection: normal to inspection Auscultation: normal bowel sounds Skin General skin exam: no rashes or lesions noted Neuro General: patient alert, patient oriented x3 and CN's II-XI intact bilaterally Cranial Nerves: tongue midline Cognition: normal cognition Speech: speech normal Gait: normal gait Motor: muscle tone normal throughout and strength 5/5 throughout Sensory Exam: no sensory deficits noted Other: No pronator drift, negative [id number], ambulatory with steady gait, negative heel mcfarlane Course Vital Signs Vital signs: Vital Signs Temperature 36.7 C 12/01/20 11:07 Pulse 63 12/01/20 11:07 Respiratory Rate 15 12/01/20 11:07 Blood Pressure 116/72 12/01/20 11:07 Pulse Oximetry 100 12/01/20 11:07 Temperature 36.7 C 12/01/20 11:07 Temperature Source Temporal Artery Scan 12/01/20 11:07 Pulse 63 12/01/20 11:07 Respiratory Rate 20 12/01/20 11:23 Respiratory Effort Non-Labored 12/01/20 11:23 Respiratory Depth Normal 12/01/20 11:23 Respiratory Pattern Normal 12/01/20 11:23 Blood Pressure 116/72 12/01/20 11:07 Blood Pressure Position Sitting 12/01/20 11:07 Pulse Oximetry 100 12/01/20 11:07 Oxygen Delivery Method Room Air 12/01/20 11:07 Oxygen Flow Rate 0 12/01/20 11:07 Pain Level 0 12/01/20 11:07
[2020-12-01 11:49] LABS: ALT 20 U/L (14-59); AST 23 U/L (15-37); Albumin 3.4 g/dL (3.4-5.0); Alkaline Phosphatase 93 U/L (46-116); Anion Gap 7.7 mmol/L (3-11); Anisocytosis 2+; BUN 15 mg/dL (7-18); Bilirubin, Total 0.9 mg/dL (0.2-1.0); Burr Cells (echinocyte) 2+; CO2 27.3 mmol/L (21.0-32.0); Calcium 9.2 mg/dL (8.5-10.1); Chloride 105 mmol/L (98-107); Diff Comment Diff Reviewed; Estimated GFR 55.64 (mL/min/1.73m2); Glucose 123 mg/dL (74-106); Magnesium 2.2 mg/dL (1.8-2.4); Platelet Count 769 10^3/uL (130-400); Potassium 4.7 mmol/L (3.5-5.1); Sodium 140 mmol/L (136-145); TSH 1.47 uIU/mL (0.36-3.74); Total Protein 6.8 g/dL (6.4-8.2)
[2020-12-01 11:50] LABS: Hypochromasia 2+; Microcytosis 2+; Polychromasia Present
[2020-12-01 11:51] LABS: Poikilocytes 2+; Troponin I < 0.05 ng/mL (<0.06)
--- NOTE | 2020-12-01 12:25 | DI.CT_ITS ---
Exam(s) CT HEAD WO EXAM: CT HEAD WO CLINICAL HISTORY: syncope/LOC. TECHNIQUE: Imaging Protocol: Axial computed tomography images with coronal and sagittal reformatted images were created and reviewed COMPARISON: CT CT HEAD WO from 07/24/2020 FINDINGS: No skull fractures. Mucosal thickening posteriorly in left maxillary sinus is unchanged. Remainder of the paranasal sinuses are clear. There is no evidence of intracranial hemorrhage, mass effect, or shift of midline structures. There are no extra-axial fluid collections. The ventricles are not enlarged or shifted and there is no blo od within the ventricular system nor within the basal cisterns. Again noted is abundant bilateral periventricular hypodensity consistent with chronic small vessel di sease, similar to the prior study. No new obvious territorial infarction IMPRESSION: There is extensive bilateral periventricular white matter disease, exhibiting minimal change from . No evidence of intracranial hemorrhage. No obvious new territorial infarction. Mild mucosal thickening in the posterior right maxillary sinus again noted. RADIATION DOSE DELIVERED: 662.25mGy.cm Total DLP DATA REPOSITORY: All CT scans at this facility are submitted to the National Radiology Data Registry (NRDR) Dose Index Registry (DIR) with the [employer] (ACR). RADIATION OPTIMIZATION: All CT scans at this facility use at least one of these dose optimization te chniques: automated exposure control; mA and/or kV adjustment per patient size (includes targeted exa ms where dose is matched to clinical indication); or iterative reconstruction.
--- NOTE | 2020-12-01 12:36 | DI.RAD_ITS ---
Exam(s) XR CHEST 2V PA LATERAL EXAM: XR CHEST 2V PA LATERAL CLINICAL HISTORY: syncope. TECHNIQUE: 2D digital imaging was performed. COMPARISON: CR LEFT SHOULDER COMPLETE from 07/27/2017 FINDINGS: Heart size is normal. The mediastinum is not widened. Lungs are clear. No infiltrates nor pleural effusions. IMPRESSION: No acute pulmonary findings. DATA REPOSITORY: RADIATION DOSE DELIVERED:
[2020-12-01] MEDS: Normal Saline 1,000 ML 1000 ML IV (13:01)
== END 2020-12-01 15:21 | disposition home or self-care (01) ==
PROVIDERS: Emergency Provider Physician Assistant; PCP Student in an Organized Health Care Education/Training Program
DX: D47.3 Essential (hemorrhagic) thrombocythemia (principal); R55 Syncope and collapse; I10 Essential (primary) hypertension
CPT/HCPCS: 36415; 36416; 80053; 82962; 93005; 96360; 96361; 99285; 70450; 71046; 81003; 83735; 84443; 84484; 85025; 93010; 99284

== ENCOUNTER 2020-12-15 07:27 | Outpatient (CLI) | payer MEDICARE, OTHER, SELFPAY ==
[2020-12-15 15:40] LABS: Source Nasal/Nares
[2020-12-15 16:43] LABS: COVID-19 PCR Negative (Negative)
== END 2020-12-15 07:28 | disposition home or self-care (01) ==
PROVIDERS: Visit Provider Family Medicine
DX: Z20.822 Contact with and (suspected) exposure to COVID-19 (principal)
CPT/HCPCS: 87635

== ENCOUNTER 2020-12-16 03:04 | Outpatient (CLI) | payer MEDICARE, OTHER, SELFPAY ==
[2020-12-16 09:48] LABS: Abs Immature Grans 0.08 10^3/uL (0.0-0.06); Absolute Basophil Count 0.14 10^3/uL (0.0-0.2); Absolute Eosinophil Count 0.35 10^3/uL (0.0-0.7); Absolute Monocyte Count 0.74 10^3/uL (0.1-0.8); Absolute Neutrophil Count 5.19 10^3/uL (1.2-6.7); Basophils % 1.5; Eosinophils % 3.8; HCT 44.8 % (36.0-46.0); HGB 13.2 g/dL (11.2-15.7); Immature Grans % 0.9; Lymphocytes % 30.1; MCH 21.5 pg (27.0-33.0); MCHC 29.5 % (32.0-36.0); MPV 9.7 fL (8.0-11.0); Neutrophils % 55.7; Nucleated RBC 0 %; RBC 6.14 10^6/uL (3.93-5.22); RDW 22.9 % (11.7-14.6); RDW-SD 55.2 fL
[2020-12-16 09:50] LABS: ESR 5 mm/hr (0-30)
[2020-12-16 10:24] LABS: Anisocytosis 2+; Diff Comment RBC Morph Reviewed; Hypochromasia 2+; Microcytosis 1+; Polychromasia Present
[2020-12-16 10:25] LABS: Poikilocytes 2+
[2020-12-16 10:27] LABS: Platelet Count 811 10^3/uL (130-400)
[2020-12-16 11:22] LABS: Iron 52 ug/dL (50-170); Total Iron Binding Capacity 248 ug/dL (250-450)
[2020-12-16 11:27] LABS: C-Reactive Protein < 0.05 mg/dL (0.0-0.3)
[2020-12-16 11:55] LABS: Ferritin 127 ng/mL (8-252)
== END 2020-12-16 03:05 | disposition home or self-care (01) ==
LOC: LBO 03:04
DX: I10 Essential (primary) hypertension (principal); D47.3 Essential (hemorrhagic) thrombocythemia; E61.1 Iron deficiency; K62.5 Hemorrhage of anus and rectum
CPT/HCPCS: 36415; 85652; 82728; 83540; 83550; 85025; 86140

== ENCOUNTER 2020-12-23 16:38 | Outpatient (REF) | payer MEDICARE, OTHER, SELFPAY ==
--- NOTE | 2020-12-23 14:30 | PAPFT_PTH ---
PATIENT: Keyla Joy LOC: [facility] U#:[id number] AGE/SX: 65/F ROOM: RE12/23/[address]: Gilda Neff APRN : 1955 BED: DIS: 12/23/2020 SPEC #: [id number] RECD: 12/24/20 12:52 STATUS: JACLYN REChasidy #: [id number] KOSTAS: 12/23/20 14:[address]: Gilda Neff DEPT: [facility] Cytology RECD BY: Edith Mc Tissues: 1 - CX/ENDOCX FOR PAP SMEARS Procedures: PAP THIN PREP/UVM Screening HPV DNA PROBE Comments: [id number]
== END 2020-12-23 16:39 | disposition home or self-care (01) ==
LOC: LBN 16:38
DX: Z12.4 Encounter for screening for malignant neoplasm of cervix (principal); Z11.51 Encounter for screening for human papillomavirus (HPV); Z01.419 Encounter for gynecological examination (general) (routine) without abnormal findings
CPT/HCPCS: 88142; 87624

== ENCOUNTER 2021-01-04 01:17 | Outpatient (CLI) | payer MEDICARE, OTHER, SELFPAY ==
--- NOTE | 2021-01-04 07:30 | DI.MAMMO_ITS ---
Exam(s) MAMMO SCREENING EXAM: MAMMO SCREENING CLINICAL HISTORY: screening,Z12.39 TECHNIQUE: Mammograms were interpreted according to the usual protocol including computer analysis w [employer] CAD system, tomosynthesis and C-view imaging. COMPARISON: 2010 FINDINGS: The breasts are composed of scattered fibroglandular densities, Breast Density category B. No suspicious masses or suspicious microcalcifications are seen. No skin thickening or abnormal axillary lymph nodes are seen. There has been no significant change from prior exams. IMPRESSION: BI-RADS Category 1, Negative mammogram Yearly screening mammography is recommended. Breast Density - Category B, scattered fibroglandular densities. A negative radiographic report should not delay biopsy if a dominant or clinically suspicious mass is present. Up to ten percent of cancers are not identified on mammography. A negative report may reinforce clinical impression. Adenosis and dense breasts may obscure an underlying neoplasm. False positive reports average 6 to 10%. Patient will receive a letter notifying them of these results.
== END 2021-01-04 01:37 ==
DX: Z12.31 Encounter for screening mammogram for malignant neoplasm of breast (principal)
CPT/HCPCS: 77063; 77067

== ENCOUNTER 2021-03-03 02:52 | Outpatient (CLI) | payer MEDICARE, OTHER, SELFPAY ==
[2021-03-03 09:51] LABS: Abs Immature Grans 0.04 10^3/uL (0.0-0.06); Absolute Basophil Count 0.12 10^3/uL (0.0-0.2); Absolute Eosinophil Count 0.15 10^3/uL (0.0-0.7); Absolute Lymphocyte Count 2.46 10^3/uL (1.2-3.4); Absolute Monocyte Count 0.67 10^3/uL (0.1-0.8); Absolute Neutrophil Count 4.52 10^3/uL (1.2-6.7); Basophils % 1.5; Eosinophils % 1.9; HCT 50.8 % (36.0-46.0); HGB 15.3 g/dL (11.2-15.7); Immature Grans % 0.5; Lymphocytes % 30.9; MCH 22.1 pg (27.0-33.0); MCHC 30.1 % (32.0-36.0); MCV 73.4 fL (80-95); Monocytes % 8.4; Neutrophils % 56.8; Nucleated RBC 0 %; RBC 6.92 10^6/uL (3.93-5.22); RDW 24.5 % (11.7-14.6); RDW-SD 59.7 fL; WBC 7.96 10^3/uL (4.4-10.8)
[2021-03-03 10:02] LABS: Anisocytosis 2+; Diff Comment RBC Morph Reviewed; Hypochromasia 1+; Microcytosis 2+
[2021-03-03 10:03] LABS: Platelet Count 454 10^3/uL (130-400); Poikilocytes 2+
== END 2021-03-03 02:53 | disposition home or self-care (01) ==
LOC: LBO 02:52
PROVIDERS: Visit Provider Internal Medicine Hematology & Oncology
DX: D47.1 Chronic myeloproliferative disease (principal)
CPT/HCPCS: 36415; 85025

== ENCOUNTER 2021-03-08 01:20 | Outpatient (RCR) | payer MEDICARE, OTHER, SELFPAY | END 2021-03-29 23:59 | disposition home or self-care (01) | LOC: INF 01:20 | PROVIDERS: Visit Provider Internal Medicine Hematology & Oncology | DX: D45 Polycythemia vera (principal) | CPT/HCPCS: 99195 ==

== ENCOUNTER 2021-03-31 14:10 | Outpatient (CLI) | payer MEDICARE, OTHER, SELFPAY ==
[2021-03-31 14:33] LABS: Abs Immature Grans 0.09 10^3/uL (0.0-0.06); Absolute Basophil Count 0.13 10^3/uL (0.0-0.2); Absolute Eosinophil Count 0.12 10^3/uL (0.0-0.7); Absolute Lymphocyte Count 2.15 10^3/uL (1.2-3.4); Absolute Monocyte Count 0.72 10^3/uL (0.1-0.8); Basophils % 1.5; Eosinophils % 1.4; HCT 49.1 % (36.0-46.0); HGB 14.6 g/dL (11.2-15.7); Immature Grans % 1.1; Lymphocytes % 25.3; MCH 22.7 pg (27.0-33.0); MCHC 29.7 % (32.0-36.0); MCV 76.2 fL (80-95); Monocytes % 8.5; Neutrophils % 62.2; Nucleated RBC 0 %; RBC 6.44 10^6/uL (3.93-5.22); RDW 25.5 % (11.7-14.6); RDW-SD 66.4 fL; WBC 8.51 10^3/uL (4.4-10.8)
[2021-03-31 14:45] LABS: Diff Comment Diff Reviewed; Platelet Count 249 10^3/uL (130-400)
[2021-03-31 14:46] LABS: Anisocytosis 2+; Microcytosis 1+; Stomatocytes 2+
== END 2021-03-31 14:11 | disposition home or self-care (01) ==
LOC: LBO 14:12
PROVIDERS: Visit Provider Internal Medicine Hematology & Oncology
DX: D47.1 Chronic myeloproliferative disease (principal)
CPT/HCPCS: 36415; 85025

== ENCOUNTER 2021-04-05 00:41 | Outpatient (RCR) | payer MEDICARE, OTHER, SELFPAY ==
[2021-04-05] MEDS: Normal Saline Flush 10 ML SYR IVP (11:48)
== END 2021-04-29 23:59 | disposition home or self-care (01) ==
LOC: INF 00:41
PROVIDERS: Visit Provider Internal Medicine Hematology & Oncology
DX: D45 Polycythemia vera (principal)
CPT/HCPCS: 99195

== ENCOUNTER 2021-04-28 03:05 | Outpatient (CLI) | payer MEDICARE, OTHER, SELFPAY ==
[2021-04-28 13:38] LABS: Abs Immature Grans 0.06 10^3/uL (0.0-0.06); Absolute Basophil Count 0.12 10^3/uL (0.0-0.2); Absolute Lymphocyte Count 2.27 10^3/uL (1.2-3.4); Absolute Monocyte Count 0.79 10^3/uL (0.1-0.8); Basophils % 1.3; Eosinophils % 1.1; HCT 47.3 % (36.0-46.0); HGB 13.9 g/dL (11.2-15.7); Immature Grans % 0.7; Lymphocytes % 24.8; MCH 23.1 pg (27.0-33.0); MCHC 29.4 % (32.0-36.0); MCV 78.7 fL (80-95); Monocytes % 8.6; Neutrophils % 63.5; Nucleated RBC 0 %; Platelet Count 219 10^3/uL (130-400); RBC 6.01 10^6/uL (3.93-5.22); RDW-SD 68.8 fL; WBC 9.14 10^3/uL (4.4-10.8)
[2021-04-28 14:05] LABS: Anisocytosis 2+; Microcytosis 2+; Stomatocytes 2+
== END 2021-04-28 03:06 | disposition home or self-care (01) ==
LOC: LBO 03:05
PROVIDERS: Visit Provider Internal Medicine Hematology & Oncology
DX: D47.1 Chronic myeloproliferative disease (principal)
CPT/HCPCS: 36415; 85025

== ENCOUNTER 2021-05-03 01:24 | Outpatient (RCR) | payer MEDICARE, OTHER, SELFPAY | END 2021-05-30 23:59 | disposition home or self-care (01) | LOC: INF 01:24 | PROVIDERS: Visit Provider Internal Medicine Hematology & Oncology | DX: D47.1 Chronic myeloproliferative disease (principal); D75.838 Other thrombocytosis | CPT/HCPCS: 99195 ==

== ENCOUNTER 2021-06-02 02:17 | Outpatient (RCR) | payer MEDICARE, OTHER, SELFPAY ==
[2021-06-02 09:29] LABS: HCT 45.1 % (36.0-46.0); MCH 23.1 pg (27.0-33.0); MCHC 28.8 % (32.0-36.0); MCV 80.2 fL (80-95); MPV 9.5 fL (8.0-11.0); Platelet Count 477 10^3/uL (130-400); RBC 5.62 10^6/uL (3.93-5.22); RDW-SD 59.9 fL
[2021-06-02] MEDS: Normal Saline Flush 10 ML SYR IVP (09:30)
== END 2021-06-27 23:59 | disposition home or self-care (01) ==
LOC: INF 02:17
PROVIDERS: Nurse Practitioner Family; Visit Provider Internal Medicine Hematology & Oncology
DX: D45 Polycythemia vera (principal)
CPT/HCPCS: 36415; 85027; 99195

== ENCOUNTER 2021-07-28 03:45 | Outpatient (RCR) | payer MEDICARE, OTHER, SELFPAY ==
[2021-07-28] MEDS: Normal Saline Flush 10 ML SYR IVP ×2 (10:18→11:20)
[2021-07-28 10:37] LABS: HCT 45.2 % (36.0-46.0); HGB 12.3 g/dL (11.2-15.7); MCH 22.2 pg (27.0-33.0); MCHC 27.2 % (32.0-36.0); MCV 81.7 fL (80-95); MPV 10.4 fL (8.0-11.0); Platelet Count 375 10^3/uL (130-400); RBC 5.53 10^6/uL (3.93-5.22); RDW 20.2 % (11.7-14.6); RDW-SD 57.3 fL; WBC 9.14 10^3/uL (4.4-10.8)
== END 2021-07-28 23:59 | disposition home or self-care (01) ==
LOC: INF 03:45
PROVIDERS: Visit Provider Internal Medicine Hematology & Oncology
DX: D47.1 Chronic myeloproliferative disease (principal)
CPT/HCPCS: 36415; 85027

== ENCOUNTER 2021-08-25 02:34 | Outpatient (RCR) | payer MEDICARE, OTHER, SELFPAY ==
[2021-08-25] MEDS: Normal Saline Flush 10 ML SYR IVP (10:24)
[2021-08-25 10:27] LABS: HCT 42.8 % (36.0-46.0); HGB 11.8 g/dL (11.2-15.7); MCHC 27.6 % (32.0-36.0); MCV 79.9 fL (80-95); RBC 5.36 10^6/uL (3.93-5.22); RDW 19.9 % (11.7-14.6); RDW-SD 55.6 fL; WBC 7.77 10^3/uL (4.4-10.8)
[2021-08-25 11:02] LABS: Platelet Count 246 10^3/uL (130-400)
[2021-08-25 11:14] LABS: ALT 19 U/L (14-59); AST 20 U/L (15-37); Alkaline Phosphatase 95 U/L (46-116); Anion Gap 7.7 mmol/L (3-11); BUN 17 mg/dL (7-18); Bilirubin, Total 0.7 mg/dL (0.2-1.0); CO2 26.3 mmol/L (21.0-32.0); CREATININE 0.8 mg/dL (0.55-1.02); Calcium 8.1 mg/dL (8.5-10.1); Chloride 103 mmol/L (98-107); Glucose 121 mg/dL (74-106); Sodium 137 mmol/L (136-145); Total Protein 6.5 g/dL (6.4-8.2)
[2021-08-25 11:26] LABS: Calculated LDL 46 mg/dL (<100); Cholesterol 115 mg/dL (<200); HDL Cholesterol 55 mg/dL (40-60); Triglyceride 72 mg/dL (<150)
== END 2021-08-27 23:59 | disposition home or self-care (01) ==
LOC: INF 02:34
PROVIDERS: Visit Provider Internal Medicine Hematology & Oncology
DX: E78.5 Hyperlipidemia, unspecified (principal); D47.1 Chronic myeloproliferative disease; D75.839 Thrombocytosis, unspecified; I10 Essential (primary) hypertension
CPT/HCPCS: 36415; 80053; 80061; 85027; 99195

== ENCOUNTER 2021-09-22 02:59 | Outpatient (RCR) | payer MEDICARE, OTHER, SELFPAY ==
[2021-09-22 08:19] LABS: MCH 21.8 pg (27.0-33.0); MCV 78 fL (80-95); RDW 20.5 % (11.7-14.6); RDW-SD 55.2 fL
[2021-09-22 08:24] LABS: HCT 45.9 % (36.0-46.0); HGB 12.8 g/dL (11.2-15.7); MCHC 27.9 % (32.0-36.0)
[2021-09-22 08:31] LABS: Platelet Count 238 10^3/uL (130-400)
[2021-09-22 08:32] LABS: RBC 5.88 10^6/uL (3.93-5.22)
== END 2021-09-27 23:59 | disposition home or self-care (01) ==
LOC: INF 02:59
PROVIDERS: Visit Provider Internal Medicine Hematology & Oncology
DX: D47.1 Chronic myeloproliferative disease (principal)
CPT/HCPCS: 36415; 85027; 99195

== ENCOUNTER 2021-10-20 03:04 | Outpatient (RCR) | payer MEDICARE, OTHER, SELFPAY ==
[2021-10-20 10:33] LABS: HCT 39.3 % (36.0-46.0); HGB 10.9 g/dL (11.2-15.7); MCHC 27.7 % (32.0-36.0); MCV 78 fL (80-95); Platelet Count 226 10^3/uL (130-400); RBC 5.07 10^6/uL (3.93-5.22); RDW-SD 54.6 fL; WBC 8.97 10^3/uL (4.4-10.8)
[2021-10-20 10:53] LABS: MCH 21.5 pg (27.0-33.0)
[2021-10-20] MEDS: Normal Saline Flush 10 ML SYR IVP (11:30)
== END 2021-10-27 23:59 | disposition home or self-care (01) ==
LOC: INF 03:04
PROVIDERS: Visit Provider Internal Medicine Hematology & Oncology
DX: D75.839 Thrombocytosis, unspecified (principal)
CPT/HCPCS: 36415; 85027

== ENCOUNTER 2021-11-17 01:05 | Outpatient (RCR) | payer MEDICARE, OTHER, SELFPAY ==
[2021-11-17 10:45] LABS: HCT 42.1 % (36.0-46.0); HGB 11.7 g/dL (11.2-15.7); MCH 21.3 pg (27.0-33.0); MCV 77 fL (80-95); Platelet Count 225 10^3/uL (130-400); RDW 20.4 % (11.7-14.6); RDW-SD 54.4 fL; WBC 9.37 10^3/uL (4.4-10.8)
[2021-11-17 10:55] LABS: MCHC 27.8 % (32.0-36.0)
== END 2021-11-27 23:59 | disposition home or self-care (01) ==
LOC: INF 01:05
PROVIDERS: Visit Provider Internal Medicine Hematology & Oncology
DX: D47.1 Chronic myeloproliferative disease (principal)
CPT/HCPCS: 36415; 80053; 85027

== ENCOUNTER 2021-12-22 02:36 | Outpatient (RCR) | payer MEDICARE, OTHER, SELFPAY ==
[2021-12-22 09:33] LABS: HCT 44.4 % (36.0-46.0); HGB 12.5 g/dL (11.2-15.7); MCH 21.7 pg (27.0-33.0); MCHC 28.2 % (32.0-36.0); MCV 77 fL (80-95); Platelet Count 465 10^3/uL (130-400); RBC 5.77 10^6/uL (3.93-5.22); RDW 21.5 % (11.7-14.6); WBC 8.04 10^3/uL (4.4-10.8)
[2021-12-22 10:00] LABS: ALT 30 U/L (14-59); AST 33 U/L (15-37); Albumin 3.2 g/dL (3.4-5.0); Alkaline Phosphatase 102 U/L (46-116); Anion Gap 7.4 mmol/L (3-11); BUN 19 mg/dL (7-18); CO2 29.6 mmol/L (21.0-32.0); CREATININE 0.7 mg/dL (0.55-1.02); Calcium 8.6 mg/dL (8.5-10.1); Chloride 103 mmol/L (98-107); Ferritin 13 ng/mL (8-252); Glucose 114 mg/dL (74-106); Potassium 4.2 mmol/L (3.5-5.1); Sodium 140 mmol/L (136-145); Total Protein 7.4 g/dL (6.4-8.2)
[2021-12-22] MEDS: Normal Saline Flush 10 ML SYR IVP (10:08)
== END 2021-12-28 23:59 | disposition home or self-care (01) ==
LOC: INF 02:36
PROVIDERS: Nurse Practitioner Family; Visit Provider Internal Medicine Hematology & Oncology
DX: D47.1 Chronic myeloproliferative disease (principal)
CPT/HCPCS: 36415; 80053; 85027; 82728

== ENCOUNTER 2022-01-06 10:15 | Day surgery (SDC) | payer MEDICARE, OTHER, SELFPAY ==
--- NOTE | 2022-01-06 06:56 | ANES.PREOP_ITS ---
General Info Date of Service Date Performed: 01/06/22 Height: 5 ft Weight: 49.4 kg Body Mass Index (BMI): 21.2 Surgical Procedure: Operation Date: 01/06/22 12:10 Proposed Procedure Side Surgeon p Cataract Extraction with IOL Implant Right Earl Mei MD Meds Allergies and Home Medications Allergies Allergy/AdvReac Type Severity Reaction Status Date / Time metaxalone Allergy Severe Itching Verified 01/06/22 10:33 strawberry Allergy Severe Hives Verified 01/06/22 10:33 Home Medication Medication Instructions Recorded acetaminophen 650 mg 650 mg PO Q4H PRN Pain ##30 07/27/17 tablet,extended release ibuprofen 200 mg capsule 200 mg PO PRN PRN 07/27/17 aspirin 81 mg chewable tablet 81 mg PO DAILY 07/05/20 docusate sodium 100 mg capsule 100 mg PO BID #30 caps 07/21/20 (Colace) hydroxyurea 500 mg capsule (Hydrea) 500 mg PO DAILY 01/30/21 atorvastatin 40 mg tablet (Lipitor) 40 mg PO QHS #90 tabs 08/08/21 lisinopril 20 mg tablet 20 mg PO DAILY #90 tabs 08/08/21 polyethylene glycol 3350 17 17 g PO DAILY #119 grams 08/08/21 gram/dose oral powder (Miralax) ropinirole 2 mg tablet 2 mg PO QHS #90 tabs 12/19/21 Current Visit Medications: Current Medications Generic Name Dose Route Start Last Admin Trade Name Freq PRN Reason Stop Dose Admin Acetaminophen 1,000 mg 01/06/22 06:00 Acetaminophen 500 Mg Tab PO Q4H PRN PRN Miscellaneous Medication 0 ml 01/06/22 06:00 Prednisolone 1%, Moxifloxacin 0.5%, Nepafenac 0.1% 5ml Btl OD DIRECTED [facility] Miscellaneous Medication 0 ml 01/06/22 06:00 Tropicam./Phenyleph. 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 denies Depression Pt. denies Fecal impaction in rectum Fissure, anal Rectal bleeding Stroke Pt. states no residual deficits. June 2020 Superficial phlebitis and thrombophlebitis of left leg Surgical History Surgical History H/O shoulder surgery left [address] Arnold History of bilateral ligation of fallopian tubes (~1985) Tobacco Smoking/Tobacco Use Status: Never Alcohol Alcohol Intake: former Substance Use Substance use: Never Substance use type: does not use Vital Signs and Lab Results Lab Results Blood Type / Crossmatch: No Data to Display Complete Blood Count: White Blood Count 8.04 10^3/uL (4.4-10.8) 12/22/21 09:08 Red Blood Count 5.77 10^6/uL (3.93-5.22) H 12/22/21 09:08 Hemoglobin 12.5 g/dL (11.2-15.7) 12/22/21 09:08 Hematocrit 44.4 % (36.0-46.0) 12/22/21 09:08 Platelet Count 465 10^3/uL (130-400) H 12/22/21 09:08 Complete Metabolic Panel: Sodium Level 140 mmol/L (136-145) 12/22/21 09:08 Potassium Level 4.2 mmol/L (3.5-5.1) 12/22/21 09:08 Chloride Level 103 mmol/L (98-107) 12/22/21 09:08 Carbon Dioxide Level 29.6 mmol/L (21.0-32.0) 12/22/21 09:08 Blood Urea Nitrogen 19 mg/dL (7-18) H 12/22/21 09:08 Creatinine 0.7 mg/dL (0.55-1.02) 12/22/21 09:08 Estimated GFR/1.73 m2 >= 60.00 (mL/min/1.73m2) 12/22/21 09:08 Calcium Level 8.6 mg/dL (8.5-10.1) 12/22/21 09:08 Albumin 3.2 g/dL (3.4-5.0) L 12/22/21 09:08 Glucose Level 114 mg/dL (74-106) H 12/22/21 09:08 Liver Function Panel: Alanine Aminotransferase (ALT/SGPT) 30 U/L (14-59) 12/22/21 09: 08 Aspartate Amino Transf (AST/SGOT) 33 U/L (15-37) 12/22/21 09:08 Coagulation Panel: No Data to Display Cardiac Panel: No Data to Display Arterial Blood Gas: No Data to Display Venous Blood Gas: No Data to Display Pancreas Panel: No Data to Display Thyroid Panel: No Data to Display Infectious Disease: No Data to Display Blood Cultures: No Data to Display Toxicology Panel: No Data to Display Anesthesia Assessment and Plan Anesthesia History Personal History: No History of Anesthesia Complications Family History: No Family History of Anesthesia Complications Exercise Tolerance Exercise Tolerance: Metabolic Equivalents>4 Pertinent Negatives Pertinent Negatives: No Symptoms of GERD Cardiac & Pulmonary Exam Cardiac Exam: Normal S1/S2 Heart Sounds Pulmonary Exam: Clear Bilateral Breath Sounds Implantable Cardiac Device Does patient have a Pacemaker or an ICD?: No Airway Exam Known Difficult Airway: No Mallampati Class: 3 Mouth Opening: Normal (> 3cm) Thyromental Distance: Greater than 3 cm Neck Range of Motion: Full ROM Neck Circumference: Normal Teeth Condition: Normal Dentition ASA Classification ASA Score: ASA 3 Emergency Case?: No NPO Status NPO Status: NPO Clears >2 hours, Solids >8 hours Anesthesia Plan Resuscitation Status: Full Code Anesthesia Technique: MAC Anesthesia Airway Planned: Natural Airway Monitors Used: Standard Monitors Preoperative Comments:: CVA in 2020
[2022-01-06 10:33] VITALS: BP 158/79; PULSE 71; RESP 16; TEMP 36.4; O2SAT 100
[2022-01-06] MEDS: Tropicam./Phenyleph. (1/2.5%) 5 ML BTL OD ×3 (10:47→10:57)
[2022-01-06] MEDS: Tetracaine 0.5% 4 ML BTL OD (11:42)
[2022-01-06 11:45] VITALS: BMI 21.2
[2022-01-06] MEDS: Lidocaine 2% Pres-Free 2 ML VIAL (11:51)
[2022-01-06] MEDS: Balanced Salt Soln.-PLUS 500 ML BAG (11:51)
[2022-01-06] MEDS: Lidocaine 2% Jelly 6 ML SYR (11:52)
[2022-01-06] MEDS: Trypan Blue 0.06% 0.5 ML SYR (11:54)
[2022-01-06] MEDS: Povidone-Iodine Ophth 30 ML BTL (11:54)
[2022-01-06] MEDS: Duovisc Viscoelastic System EACH 1 EACH (11:55)
--- NOTE | 2022-01-06 12:12 | W.PM.DSUDISC ---
Discharge Plan Disposition Patient Disposition: HOME Condition: Good Discharge Details Attending Provider: Earl Mei Primary Care Provider: Gilda Neff Home Meds and New Rx's Prescriptions: No Action aspirin 81 mg tablet,chewable 81 mg PO DAILY ropinirole 2 mg tablet 2 mg PO QHS Qty: 90 3RF Rx Instructions: administer 1-2 hours before bedtime atorvastatin [Lipitor] 40 mg tablet 40 mg PO QHS Qty: 90 4RF lisinopril 20 mg tablet 20 mg PO DAILY Qty: 90 4RF polyethylene glycol 3350 [Miralax] 17 gram/dose powder 17 g PO DAILY Qty: 119 3RF hydroxyurea [Hydrea] 500 mg capsule 500 mg PO DAILY ibuprofen 200 MG capsule 200 mg PO PRN PRN acetaminophen 650 MG tablet extended release 650 mg PO Q4H PRN (Reason: Pain) Qty: 30 0RF docusate sodium [Colace] 100 mg capsule 100 mg PO BID Qty: 30 0RF Discharge Instructions Stand Alone Forms: Post-op Topical Cataract, Kamilla Menendez ([facility]) Discharge Orders Discharge Orders: Discharge Order (Routine); Ordered 01/06/22 Ordered By: Earl Mei DS: Diagnosis Discharge Diagnosis (1) Cortical cataract of right eye: Status: Resolved (2) Nuclear sclerotic cataract of right eye: Status: Resolved (3) Posterior subcapsular age-related cataract, right eye: Status: Resolved
[2022-01-06 12:15] VITALS: BP 142/75; PULSE 70; RESP 16; TEMP 36.1; O2SAT 99
--- NOTE | 2022-01-06 12:16 | W.PM.OP ---
Date of service: 01/06/22 Time of Service: 12:16 Operative Note Operative Note DATE OF PROCEDURE: 01/06/22 PRE-OP DIAGNOSIS: Nuclear/cortical/posterior subcapsular cataract, right eye Poor red reflex, right eye secondary to cataract POST-OP DIAGNOSIS: same PROCEDURE: Cataract extraction using phacoemulsification with intraocular lens implantation, right eye, using capsular staining with Vision Blue SURGEON: Earl Mei ANESTHESIA TYPE: Local By Surgeon and MAC Refer to Anesthesia Record PATHOLOGY: none sent COMPLICATIONS: None Patient was transported to: same day Patient's condition: stable Implants: Herbert [employer] Herbert / [employer] Tecnis [id number] Indications: Progressive visual loss due to cataract, right eye Procedure Description: CATARACT SURGERY OPERATIVE REPORT PREOPERATIVE DIAGNOSIS: 1.Nuclear/cortical/posterior subcapsular cataract, right eye 2. Poor red reflex secondary to #1 POSTOPERATIVE DIAGNOSIS: Same OPERATION: 1. Cataract extraction using phacoemulsification with posterior chamber intraocular lens implant, right eye. 2. Capsular staining with Vision Blue IOL: IOL Web Applications Administrator/Model: Herbert & Herbert / RENNY Tecnis [id number] IOL Power: + 21.0 diopters IOL Serial Number: [id number] Optic Diameter: 6.0mm Haptic/Overall Diameter: 13.0mm PHACO INFO: Daniel Mommy Nearesturion Vision System with OZil and Active Fluidics Cumulative Dispersed Energy (CDE): 15.8 seconds SURGEON: Earl Mei MD, ALLY ANESTHESIA: Monitored Anesthesia Care (MAC), with local sub-tenon's anesthetic infiltration COMPLICATIONS: None SPECIMENS: None INDICATIONS FOR PROCEDURE: The patient is a 66-year-old lady with history of diminished visual acuity in her right eye secondary to the development of significant nuclear/cortical/posterior subcapsular cataract. The option of cataract surgery was offered to the patient and she felt she was symptomatic enough that she wished to proceed. PROCEDURE: The correct surgical eye was identified and marked as the right eye and the pupil was dilated in the preoperative area using mydriatics and cycloplegics. The dilated pupil size was 7.0 mm. The patient elected to proceed without oral sedation. The patient was brought to the operating room where cardiopulmonary monitoring was instituted and surgical time-out was performed, confirming the correct operative eye and IOL power. Topical anesthesia was administered and ophthalmic povidone-iodine 5% was instilled into the conjunctival fornices. Lidocaine gel was applied to the cornea and the kat-ocular area was prepped with Betadine 10% solution and draped in the usual sterile fashion for intraocular surgery, including an aperture drape. A Tegaderm transparent film dressing was cut in half and used to cover the lashes and lid margins. Care was taken to sequester the lashes and lid margins under the Tegaderm dressing. A lid speculum was placed between the lids of the operative eye and the Daniel Lux[employer] Revalia operating microscope was maneuvered into position. Willis scissors were then used to make a conjunctival buttonhole approximately 6mm posterior to the limbus in the inferonasal quadrant. Blunt dissection was carried out to expose bare sclera, and a blunt-tipped sub-tenon?s anesthesia cannula was introduced and passed posteriorly along the globe where non-preserved plain lidocaine was injected into posterior sub-Tenon?s space. A sideport knife was used to make a paracentesis port inferotemporally. Intraocular phenylephrine/lidocaine was injected into the anterior chamber. Air was injected into the anterior chamber, followed by Vision Blue, which was painted over the anterior capsule and then irrigated out with BSS. The anterior chamber was filled with viscoelastic. A keratome knife was used to create a 2-plane near clear corneal tunnel extending approximately 2 mm into clear cornea superior temporally.. A flap was raised on the anterior capsule and capsulorhexis forceps were used to complete a continuous curvilinear capsulorhexis of 5.0 mm. Balanced salt solution was then used to perform cortical cleaving hydrodissection and nuclear hydrodelineation until the lens could be freely rotated within the capsular bag. The lens nucleus was then disassembled and removed within the capsular bag and iris plane using phacoemulsification. Residual cortical material was removed using the I/A handpiece. The posterior capsule was carefully polished to remove as much residual lens epithelial cells as safely possible. There was some densely adherent posterior subcapsular plaque which could not be safely removed. The capsular bag was then inflated and the anterior chamber deepened with viscoelastic. The lens implant described above was inserted into the capsular bag using the RENNY [place] Injector. A Kuglen hook was used to dial the IOL into position. Residual viscoelastic was then removed first from posterior to the IOL, then from the anterior chamber using the I/A handpiece. The lens implant was noted to center nicely within the capsular bag. The incisions were stromally hydrated, and the anterior chamber was reformed using BSS. Then 0.5cc of moxifloxacin 1.0mg/ml were injected into the capsular bag and anterior chamber. The incisions were checked with a Weck spear and found to be secure. Several drops of ophthalmic povidone-iodine 5% were then applied to the eye followed by two drops of Imprimis combination prednisolone/moxifloxacin/nepafenac solution. The drapes were removed and a clear plastic protective eye shield was placed over the eye. The patient was then returned to Same Day Surgery in stable condition.
--- NOTE | 2022-01-06 12:45 | W.ANESPOSTOP ---
Postoperative Evaluation Date, Time and Location Date Performed: 01/06/22 Time Performed: 12:45 Patient Location: Day Surgery Unit Vital Signs Most Recent Imported Vital Signs: Most Recent Vital Signs Temp Pulse Resp BP Pulse Ox 36.1 C L 70 16 142/75 H 99 01/06/22 12:15 01/06/22 12:15 01/06/22 12:15 01/06/22 12:15 01/06/22 12:15 Pain Score Most Recent Pain Score: Most Recent Pain Score Pain Level 0 01/06/22 12:15 Assessment Mental Status: Awake (Alert & Oriented to Patient Baseline) Airway and Respiratory Function: Patent airway with normal (patient baseline) respiratory exam Cardiovascular Function: Hemodynamically Stable Hydration Status: Adequately Hydrated Nausea & Vomiting: No Nausea or Vomiting Pain: Pt. Denies Any Pain Peripheral Nerve Block: Other (Local by Dr. Mei) Postoperative Comments:: Seen earlier today. All questions answered.
== END 2022-01-06 12:58 | disposition home or self-care (01) ==
PROVIDERS: Visit Provider Ophthalmology
PROC: (CPT 66982; principal; 2022-01-06 12:00)
DX: H25.041 Posterior subcapsular polar age-related cataract, right eye (principal); H26.8 Other specified cataract; I10 Essential (primary) hypertension; D47.3 Essential (hemorrhagic) thrombocythemia
CPT/HCPCS: 66982; V2632

== ENCOUNTER 2022-01-19 03:45 | Outpatient (RCR) | payer MEDICARE, OTHER, SELFPAY ==
[2022-01-19 09:40] LABS: HCT 48.1 % (36.0-46.0); HGB 13.4 g/dL (11.2-15.7); MCH 21.5 pg (27.0-33.0); MCHC 27.9 % (32.0-36.0); MCV 77 fL (80-95); RDW 21.6 % (11.7-14.6); RDW-SD 55.9 fL; WBC 7.65 10^3/uL (4.4-10.8)
[2022-01-19 10:15] LABS: Platelet Count 407 10^3/uL (130-400)
[2022-01-19 10:16] LABS: RBC 6.23 10^6/uL (3.93-5.22)
== END 2022-01-27 23:59 | disposition home or self-care (01) ==
LOC: INF 03:45
PROVIDERS: Visit Provider Internal Medicine Hematology & Oncology
DX: D47.1 Chronic myeloproliferative disease (principal); D75.839 Thrombocytosis, unspecified
CPT/HCPCS: 36415; 85027; 99195

== ENCOUNTER → 2022-01-30 01:33 | Outpatient (CLI) | payer MEDICARE, OTHER, SELFPAY ==
--- NOTE | 2022-01-30 07:15 | DI.MAMMO_ITS ---
Exam(s) MAMMO SCREENING EXAM: MAMMO SCREENING CLINICAL HISTORY: screening,z12.39 TECHNIQUE: Mammograms were interpreted according to the usual protocol including computer analysis w [email or web address] CAD system, tomosynthesis and C-view imaging. COMPARISON: 2020 FINDINGS: The breasts are composed of scattered fibroglandular densities, Breast Density category B. No suspicious masses or suspicious microcalcifications are seen. No skin thickening or abnormal axillary lymph nodes are seen. There has been no significant change from prior exams. IMPRESSION: BI-RADS Category 1, Negative mammogram Yearly screening mammography is recommended. Breast Density - Category B, scattered fibroglandular densities. A negative radiographic report should not delay biopsy if a dominant or clinically suspicious mass is present. Up to ten percent of cancers are not identified on mammography. A negative report may reinforce clinical impression. Adenosis and dense breasts may obscure an underlying neoplasm. False positive reports average 6 to 10%. Patient will receive a letter notifying them of these results.
== END ==
DX: Z12.31 Encounter for screening mammogram for malignant neoplasm of breast (principal)
CPT/HCPCS: 77063; 77067

== ENCOUNTER 2022-02-23 03:39 | Outpatient (RCR) | payer MEDICARE, OTHER, SELFPAY ==
[2022-02-23 09:15] LABS: Abs Immature Grans 0.03 10^3/uL (0.0-0.06); Absolute Basophil Count 0.18 10^3/uL (0.0-0.2); Absolute Eosinophil Count 0.18 10^3/uL (0.0-0.7); Absolute Lymphocyte Count 1.93 10^3/uL (1.2-3.4); Absolute Monocyte Count 0.61 10^3/uL (0.1-0.8); Absolute Neutrophil Count 5.26 10^3/uL (1.2-6.7); Basophils % 2.2; Eosinophils % 2.2; HCT 43.2 % (36.0-46.0); HGB 11.9 g/dL (11.2-15.7); Immature Grans % 0.4; Lymphocytes % 23.6; MCH 21.6 pg (27.0-33.0); MCHC 27.5 % (32.0-36.0); MCV 79 fL (80-95); Monocytes % 7.4; Neutrophils % 64.2; RDW 20.6 % (11.7-14.6); RDW-SD 56.3 fL; WBC 8.19 10^3/uL (4.4-10.8)
[2022-02-23] MEDS: Normal Saline Flush 10 ML SYR IVP (09:27)
[2022-02-23 09:28] LABS: Platelet Count 308 10^3/uL (130-400)
[2022-02-23 09:29] LABS: Anisocytosis 1+; Hypochromasia 1+
[2022-02-23 09:30] LABS: Polychromasia Present
== END 2022-02-27 23:59 | disposition home or self-care (01) ==
LOC: INF 03:39
PROVIDERS: Visit Provider Internal Medicine Hematology & Oncology
DX: D47.1 Chronic myeloproliferative disease (principal)
CPT/HCPCS: 36415; 85025

== ENCOUNTER 2022-03-16 03:14 | Outpatient (RCR) | payer MEDICARE, OTHER, SELFPAY ==
[2022-03-16] MEDS: Normal Saline Flush 10 ML SYR IVP (09:17)
[2022-03-16 09:28] LABS: Abs Immature Grans 0.05 10^3/uL (0.0-0.06); Absolute Basophil Count 0.18 10^3/uL (0.0-0.2); Absolute Lymphocyte Count 1.91 10^3/uL (1.2-3.4); Absolute Neutrophil Count 4.95 10^3/uL (1.2-6.7); Basophils % 2.3; Eosinophils % 2.5; HCT 45.5 % (36.0-46.0); HGB 12.6 g/dL (11.2-15.7); Immature Grans % 0.6; Lymphocytes % 24.2; MCH 21.5 pg (27.0-33.0); MCHC 27.7 % (32.0-36.0); MCV 78 fL (80-95); MPV 9.6 fL (8.0-11.0); Monocytes % 7.6; Neutrophils % 62.8; Platelet Count 458 10^3/uL (130-400); RBC 5.87 10^6/uL (3.93-5.22); RDW 20.6 % (11.7-14.6); RDW-SD 55.4 fL; WBC 7.89 10^3/uL (4.4-10.8)
[2022-03-16 09:39] LABS: Anisocytosis 1+; Hypochromasia 1+; Macrocytosis 1+
== END 2022-03-29 23:59 | disposition home or self-care (01) ==
LOC: INF 03:14
PROVIDERS: PCP Nurse Practitioner Family; Visit Provider Internal Medicine Hematology & Oncology
DX: D47.1 Chronic myeloproliferative disease (principal); D75.839 Thrombocytosis, unspecified
CPT/HCPCS: 36415; 99195; 85025

== ENCOUNTER 2022-04-13 02:22 | Outpatient (RCR) | payer MEDICARE, OTHER, SELFPAY ==
[2022-04-13 09:19] LABS: Abs Immature Grans 0.04 10^3/uL (0.0-0.06); Absolute Basophil Count 0.19 10^3/uL (0.0-0.2); Absolute Eosinophil Count 0.19 10^3/uL (0.0-0.7); Absolute Monocyte Count 0.81 10^3/uL (0.1-0.8); Absolute Neutrophil Count 5.25 10^3/uL (1.2-6.7); Basophils % 2.3; Eosinophils % 2.3; HCT 41.7 % (36.0-46.0); HGB 11.4 g/dL (11.2-15.7); Immature Grans % 0.5; Lymphocytes % 22.7; MCH 21.4 pg (27.0-33.0); MCHC 27.3 % (32.0-36.0); MCV 78 fL (80-95); MPV 9.8 fL (8.0-11.0); Monocytes % 9.7; Neutrophils % 62.5; Nucleated RBC 0.2 % (0.0-0.3); Platelet Count 509 10^3/uL (130-400); RBC 5.33 10^6/uL (3.93-5.22); RDW 20.4 % (11.7-14.6); RDW-SD 54.5 fL; WBC 8.38 10^3/uL (4.4-10.8)
== END 2022-04-29 23:59 | disposition home or self-care (01) ==
LOC: INF 02:22
PROVIDERS: PCP Nurse Practitioner Family; Visit Provider Internal Medicine Hematology & Oncology
DX: D47.1 Chronic myeloproliferative disease (principal)
CPT/HCPCS: 36415; 85025

== ENCOUNTER 2022-05-11 03:57 | Outpatient (RCR) | payer MEDICARE, OTHER, SELFPAY ==
[2022-05-11 09:49] LABS: Abs Immature Grans 0.04 10^3/uL (0.0-0.06); Absolute Lymphocyte Count 1.67 10^3/uL (1.2-3.4); Absolute Monocyte Count 0.69 10^3/uL (0.1-0.8); Absolute Neutrophil Count 4.92 10^3/uL (1.2-6.7); Basophils % 2.6; Eosinophils % 2.6; HCT 43.6 % (36.0-46.0); HGB 12.2 g/dL (11.2-15.7); Immature Grans % 0.5; Lymphocytes % 21.6; MCH 21.6 pg (27.0-33.0); MCV 77 fL (80-95); Monocytes % 8.9; Neutrophils % 63.8; Platelet Count 417 10^3/uL (130-400); RBC 5.65 10^6/uL (3.93-5.22); RDW 21.1 % (11.7-14.6); RDW-SD 55.5 fL; WBC 7.72 10^3/uL (4.4-10.8)
[2022-05-11 10:00] LABS: Anisocytosis 2+; Diff Comment RBC Morph Reviewed
== END 2022-05-30 23:59 | disposition home or self-care (01) ==
LOC: INF 03:57
PROVIDERS: PCP Nurse Practitioner Family; Visit Provider Internal Medicine Hematology & Oncology
DX: D47.1 Chronic myeloproliferative disease (principal)
CPT/HCPCS: 36415; 85025

== ENCOUNTER 2022-06-08 01:35 | Outpatient (RCR) | payer MEDICARE, OTHER, SELFPAY ==
[2022-06-08 09:44] LABS: Absolute Basophil Count 0.23 10^3/uL (0.0-0.2); Absolute Eosinophil Count 0.21 10^3/uL (0.0-0.7); Absolute Lymphocyte Count 2.25 10^3/uL (1.2-3.4); Absolute Monocyte Count 0.72 10^3/uL (0.1-0.8); Absolute Neutrophil Count 5.03 10^3/uL (1.2-6.7); Basophils % 2.7; Eosinophils % 2.5; HCT 45.5 % (36.0-46.0); HGB 12.5 g/dL (11.2-15.7); Immature Grans % 1.2; Lymphocytes % 26.3; MCH 21.6 pg (27.0-33.0); MCHC 27.5 % (32.0-36.0); MCV 79 fL (80-95); MPV 9.9 fL (8.0-11.0); Monocytes % 8.4; Neutrophils % 58.9; Platelet Count 478 10^3/uL (130-400); RBC 5.79 10^6/uL (3.93-5.22); RDW 21.4 % (11.7-14.6); RDW-SD 58.3 fL; WBC 8.54 10^3/uL (4.4-10.8)
[2022-06-08 10:02] LABS: Anisocytosis 2+; Diff Comment Diff Reviewed; Hypochromasia 1+
== END 2022-06-27 23:59 | disposition home or self-care (01) ==
LOC: INF 01:35
PROVIDERS: PCP Nurse Practitioner Family; Visit Provider Internal Medicine Hematology & Oncology
DX: D75.839 Thrombocytosis, unspecified (principal)
CPT/HCPCS: 36415; 85025

== ENCOUNTER 2022-07-12 10:30 | Outpatient (RCR) | payer MEDICARE, OTHER, SELFPAY ==
[2022-07-12 10:20] LABS: Abs Immature Grans 0.05 10^3/uL (0.0-0.06); Absolute Basophil Count 0.17 10^3/uL (0.0-0.2); Absolute Eosinophil Count 0.16 10^3/uL (0.0-0.7); Absolute Lymphocyte Count 1.83 10^3/uL (1.2-3.4); Absolute Monocyte Count 0.54 10^3/uL (0.1-0.8); Absolute Neutrophil Count 4.03 10^3/uL (1.2-6.7); Basophils % 2.5; Eosinophils % 2.4; HGB 12.9 g/dL (11.2-15.7); Immature Grans % 0.7; MCH 21.9 pg (27.0-33.0); MCHC 27.7 % (32.0-36.0); MCV 79 fL (80-95); MPV 9.2 fL (8.0-11.0); Neutrophils % 59.4; Platelet Count 468 10^3/uL (130-400); RBC 5.88 10^6/uL (3.93-5.22); RDW 21.9 % (11.7-14.6); RDW-SD 59.5 fL; WBC 6.78 10^3/uL (4.4-10.8)
[2022-07-12 10:24] LABS: HCT 46.6 % (36.0-46.0)
[2022-07-12 10:45] LABS: Anisocytosis 2+; Diff Comment Diff Reviewed; Microcytosis 1+
[2022-07-12 10:46] LABS: Poikilocytes 1+
[2022-07-12 10:47] LABS: Hypochromasia 2+
[2022-07-12] MEDS: Normal Saline Flush 10 ML SYR IVP (10:51)
== END 2022-07-28 23:59 | disposition home or self-care (01) ==
LOC: INF 10:30
PROVIDERS: PCP Nurse Practitioner Family; Visit Provider Internal Medicine Hematology & Oncology
DX: D75.839 Thrombocytosis, unspecified (principal)
CPT/HCPCS: 36415; 99195; 85025

== ENCOUNTER 2022-08-09 02:46 | Outpatient (RCR) | payer MEDICARE, OTHER, SELFPAY ==
[2022-08-09 10:33] LABS: Abs Immature Grans 0.04 10^3/uL (0.0-0.06); Absolute Basophil Count 0.13 10^3/uL (0.0-0.2); Absolute Eosinophil Count 0.11 10^3/uL (0.0-0.7); Absolute Lymphocyte Count 1.36 10^3/uL (1.2-3.4); Absolute Monocyte Count 0.56 10^3/uL (0.1-0.8); Absolute Neutrophil Count 3.86 10^3/uL (1.2-6.7); Basophils % 2.1; Eosinophils % 1.8; HCT 44.1 % (36.0-46.0); HGB 12.8 g/dL (11.2-15.7); Immature Grans % 0.7; Lymphocytes % 22.4; MCH 23.4 pg (27.0-33.0); MCV 81 fL (80-95); MPV 9.6 fL (8.0-11.0); Monocytes % 9.2; Neutrophils % 63.8; Platelet Count 374 10^3/uL (130-400); RBC 5.47 10^6/uL (3.93-5.22); RDW 21.2 % (11.7-14.6); WBC 6.06 10^3/uL (4.4-10.8)
[2022-08-09 11:17] LABS: Anisocytosis 2+; Diff Comment RBC Morph Reviewed; Hypochromasia 1+; Microcytosis 1+
== END 2022-08-27 23:59 | disposition home or self-care (01) ==
LOC: INF 02:46
PROVIDERS: PCP Nurse Practitioner Family; Visit Provider Internal Medicine Hematology & Oncology
DX: D75.839 Thrombocytosis, unspecified (principal)
CPT/HCPCS: 36415; 85025

== ENCOUNTER 2022-09-06 01:57 | Outpatient (RCR) | payer MEDICARE, OTHER, SELFPAY ==
[2022-09-06 10:15] LABS: Abs Immature Grans 0.02 10^3/uL (0.0-0.06); Absolute Eosinophil Count 0.11 10^3/uL (0.0-0.7); Absolute Lymphocyte Count 1.43 10^3/uL (1.2-3.4); Absolute Monocyte Count 0.44 10^3/uL (0.1-0.8); Absolute Neutrophil Count 3.32 10^3/uL (1.2-6.7); Basophils % 1.8; HCT 43.1 % (36.0-46.0); Immature Grans % 0.4; Lymphocytes % 26.4; MCH 24.8 pg (27.0-33.0); MCHC 30.2 % (32.0-36.0); MCV 82 fL (80-95); Monocytes % 8.1; Neutrophils % 61.3; Platelet Count 365 10^3/uL (130-400); RBC 5.24 10^6/uL (3.93-5.22); RDW 20.9 % (11.7-14.6); RDW-SD 60.7 fL; WBC 5.42 10^3/uL (4.4-10.8)
[2022-09-06] MEDS: Normal Saline Flush 10 ML SYR IVP (10:29)
== END 2022-09-27 23:59 | disposition home or self-care (01) ==
LOC: INF 01:57
PROVIDERS: Nurse Practitioner Family; PCP Nurse Practitioner Family; Visit Provider Internal Medicine Hematology & Oncology
DX: D75.839 Thrombocytosis, unspecified (principal)
CPT/HCPCS: 36415; 85025

== ENCOUNTER 2022-10-04 03:43 | Outpatient (RCR) | payer MEDICARE, OTHER, SELFPAY ==
[2022-10-04 10:25] LABS: Abs Immature Grans 0.07 10^3/uL (0.0-0.06); Absolute Basophil Count 0.12 10^3/uL (0.0-0.2); Absolute Eosinophil Count 0.08 10^3/uL (0.0-0.7); Absolute Lymphocyte Count 1.36 10^3/uL (1.2-3.4); Absolute Monocyte Count 0.59 10^3/uL (0.1-0.8); Absolute Neutrophil Count 4.88 10^3/uL (1.2-6.7); Basophils % 1.7; Eosinophils % 1.1; HGB 13.2 g/dL (11.2-15.7); Lymphocytes % 19.2; MCH 25.4 pg (27.0-33.0); MCV 85 fL (80-95); MPV 8.7 fL (8.0-11.0); Monocytes % 8.3; Neutrophils % 68.7; Platelet Count 310 10^3/uL (130-400); RBC 5.19 10^6/uL (3.93-5.22); RDW 20.4 % (11.7-14.6); RDW-SD 60.1 fL
[2022-10-04 10:41] LABS: Macrocytosis 2+
[2022-10-04 10:42] LABS: Anisocytosis 3+; Microcytosis 1+
[2022-10-04 10:46] LABS: Diff Comment Diff Reviewed
[2022-10-04 10:47] LABS: Polychromasia Present
[2022-10-04] MEDS: Normal Saline Flush 10 ML SYR IVP (11:00)
== END 2022-10-27 23:59 | disposition home or self-care (01) ==
LOC: INF 03:43
PROVIDERS: PCP Nurse Practitioner Family; Visit Provider Internal Medicine Hematology & Oncology
DX: D45 Polycythemia vera (principal)
CPT/HCPCS: 36415; 85025

== ENCOUNTER 2022-11-09 03:03 | Outpatient (CLI) | payer MEDICARE, OTHER, SELFPAY ==
[2022-11-09 12:33] LABS: Abs Immature Grans 0.06 10^3/uL (0.0-0.06); Absolute Basophil Count 0.11 10^3/uL (0.0-0.2); Absolute Eosinophil Count 0.06 10^3/uL (0.0-0.7); Absolute Lymphocyte Count 1.91 10^3/uL (1.2-3.4); Absolute Monocyte Count 0.97 10^3/uL (0.1-0.8); Basophils % 1.3; Eosinophils % 0.7; HCT 44.7 % (36.0-46.0); HGB 13.6 g/dL (11.2-15.7); Immature Grans % 0.7; Lymphocytes % 23.3; MCH 26.4 pg (27.0-33.0); MCHC 30.4 % (32.0-36.0); MCV 87 fL (80-95); MPV 9.1 fL (8.0-11.0); Monocytes % 11.8; Neutrophils % 62.2; Platelet Count 439 10^3/uL (130-400); RBC 5.16 10^6/uL (3.93-5.22); RDW 18.6 % (11.7-14.6); RDW-SD 57.3 fL; WBC 8.21 10^3/uL (4.4-10.8)
[2022-11-09 12:48] LABS: ALT 17 U/L (14-59); AST 18 U/L (15-37); Albumin 3.5 g/dL (3.4-5.0); Alkaline Phosphatase 127 U/L (46-116); Anion Gap 5.8 mmol/L (3-11); BUN 17 mg/dL (7-18); Bilirubin, Total 1.3 mg/dL (0.2-1.0); CO2 28.2 mmol/L (21.0-32.0); Calcium 8.7 mg/dL (8.5-10.1); Chloride 104 mmol/L (98-107); Estimated GFR 61.75 (mL/min/1.73m2); Glucose 64 mg/dL (74-106); Potassium 4.6 mmol/L (3.5-5.1); Sodium 138 mmol/L (136-145); Total Protein 7.6 g/dL (6.4-8.2)
== END 2022-11-09 03:04 | disposition home or self-care (01) ==
LOC: LBO 03:03
PROVIDERS: PCP Nurse Practitioner Family; Visit Provider Internal Medicine Hematology & Oncology
DX: I10 Essential (primary) hypertension (principal); D47.1 Chronic myeloproliferative disease
CPT/HCPCS: 36415; 80053; 85025

== ENCOUNTER 2023-01-10 21:25 | Emergency (ER) | payer MEDICARE, OTHER, SELFPAY ==
[2023-01-10 21:32] VITALS: BP 152/76; PULSE 91; RESP 16; TEMP 37; O2SAT 98
--- NOTE | 2023-01-10 22:37 | ED.GENADUL_ITS ---
Discharge Plan Disposition Patient Disposition: Home Condition: Improving Discharge Details Clinical Impression: CHI (closed head injury), Fall from slip, trip, or stumble, Nasal contusion, Contusion of lip, initial encounter, Abrasion of hand, right, Abrasion of knee, right Primary Care Provider: Boris Payan ED Provider: Lenore Castillo Home Meds and New Rx's Prescriptions: No Action aspirin 81 mg tablet,chewable 81 mg PO DAILY polyethylene glycol 3350 [Miralax] 17 gram/dose powder 17 g PO DAILY Qty: 119 3RF hydroxyurea [Hydrea] 500 mg capsule 500 mg PO DAILY ropinirole 2 mg tablet 2 mg PO QHS Qty: 90 3RF Rx Instructions: administer 1-2 hours before bedtime atorvastatin [Lipitor] 40 mg tablet 40 mg PO QHS Qty: 90 4RF lisinopril 20 mg tablet 20 mg PO DAILY Qty: 90 4RF ibuprofen 200 MG capsule 200 mg PO PRN PRN acetaminophen 650 MG tablet extended release 650 mg PO Q4H PRN (Reason: Pain) Qty: 30 0RF docusate sodium [Colace] 100 mg capsule 100 mg PO BID Qty: 30 0RF Discharge Instructions Instructions: Head Injury (ED), Contusion in Adults (ED), Abrasion (ED), Facial Contusion (ED) Additional Instructions: 1. Alternate to 1000 mg of acetaminophen every 3 hours with 400 to 600 mg of ibuprofen as needed for pain. 2. Call your primary care provider for a follow-up appointment and recheck. 3. Your daughter should wake you every 4 hours for the first 24 and return to the emergency department for any problems with your speech, gait, memory, vomiting or any new or worrisome symptoms. 4. Return here for any signs of infection in your right hand right knee or lip these include redness, increasing pain, warmth, swelling or red streaking. Discharge Data Discharge Physician: Lenore Castillo Medical Decision Making This is a 67-year-old female who tripped while walking her friend's dog. She admits to drinking 1 drink tonight but one of her daughters who lives in [place] was concerned that she was intoxicated and may not have been truthful about the amount of alcohol she consumed. She does not appear inebriated on exam but we will obtain a CT of the head face and cervical spine to rule out intracranial hemorrhage, fracture of the cervical spine or face. She did hit her nose but does not have any septal hematoma. She has a contusion of the upper lip but no malocclusion or dental trauma. We will also obtain plain films of the right hand to rule out foreign body. Clinically she does not appear to have a fracture and is denying any knee pain and is ambulatory. We will not obtain x-rays of the right knee. She declined any pain medication. I will write for wound care Differential Diagnosis Differential Diagnosis: Closed head injury, nasal fracture, facial fracture Medical Records Medical records reviewed: Yes I reviewed the patient's medical records. Imaging Data Radiologic Study: Imaging: X-Ray (Right hand) Radiologist's impression: 1. Findings most consistent with osteoarthritis. 2. Soft tissue swelling is present. Radiologic Study #2: Imaging: CT Scan (CT head without contrast.) Radiologist's impression: No acute intracranial abnormality. Radiologic Study #3: Imaging: CT Scan (CT maxillofacial without contrast) Radiologist's impression: No acute findings Radiologic Study #4: Imaging: CT Scan Radiologist's impression: No acute findings. HPI General Mode of arrival: ambulatory . Date/Time Provider Initiated Documentation: 01/10/23 21:50 . Limitations to Documentation: other (patient has been drinking alcohol) . Information obtained by: patient, family (daughter), RN notes reviewed and old records reviewed . HPI Narrative: Time seen was 10:37 PM in bed 10. Patient is a 67-year-old female who fell while walking her friend's dog. She landed on her face and had epistaxis which has resolved and hit her upper lip which is swollen. She denies any dental trauma or malocclusion of her teeth. She denies any loss of consciousness. She is also complaining of an abrasion to the right knee and abrasion to the palm of the right hand with possible foreign body sensation. She does admit to drinking 1 glass of wine prior to arrival. Her daughter is at her bedside and she has not noted any alteration in mental status. She does have some mild back pain which was not present initially but has gradually increased since the fall. She denies any radiation down her legs or saddle anesthesia. She denies any bowel or bladder incontinence or retention. She denies loss of consciousness. She did have a CVA 2-1/2 years ago but is not on any therapeutic anticoagulants. The fall happened at 8:48 PM. She denies any radiation of the pain. She denies any numbness tingling or weakness. No other recent head injuries. She denies any chest pain dizziness or shortness of breath. She denies any abdominal pain or hematuria. She denies any dysuria Related Data Home Medications Medication Instructions Recorded Confirmed acetaminophen 650 mg 650 mg PO Q4H PRN Pain ##30 07/27/17 01/10/23 tablet,extended release ibuprofen 200 mg capsule 200 mg PO PRN PRN 07/27/17 01/10/23 aspirin 81 mg chewable tablet 81 mg PO DAILY 07/05/20 01/10/23 docusate sodium 100 mg capsule 100 mg PO BID #30 caps 07/21/20 01/10/23 (Colace) hydroxyurea 500 mg capsule (Hydrea) 500 mg PO DAILY 01/30/21 01/10/23 polyethylene glycol 3350 17 17 g PO DAILY #119 grams 08/08/21 01/10/23 gram/dose oral powder (Miralax) ropinirole 2 mg tablet 2 mg PO QHS #90 tabs 02/08/22 01/10/23 atorvastatin 40 mg tablet (Lipitor) 40 mg PO QHS #90 tabs 06/02/22 01/10/23 lisinopril 20 mg tablet 20 mg PO DAILY #90 tabs 06/02/22 01/10/23 Previous Rx's Medication Instructions Recorded acetaminophen 650 mg 650 mg PO Q4H PRN Pain ##30 07/27/17 tablet,extended release docusate sodium 100 mg capsule 100 mg PO BID #30 caps 07/21/20 (Colace) polyethylene glycol 3350 17 17 g PO DAILY #119 grams 08/08/21 gram/dose oral powder (Miralax) ropinirole 2 mg tablet 2 mg PO QHS #90 tabs 02/08/22 atorvastatin 40 mg tablet (Lipitor) 40 mg PO QHS #90 tabs 06/02/22 lisinopril 20 mg tablet 20 mg PO DAILY #90 tabs 06/02/22 Allergies Allergy/AdvReac Type Severity Reaction Status Date / Time metaxalone Allergy Severe Itching Verified 01/10/23 21:37 strawberry Allergy Severe Hives Verified 01/10/23 21:37 General Stated Complaint: Laceration ZACK: 4 Review of Systems Narrative: see hpi PFSH All Active Problems (Updated 01/11/23 @ 00:48 by Lenore Castillo MD) CHI (closed head injury) (Acute) Fall from slip, trip, or stumble (Acute) Nasal contusion (Acute) Contusion of lip, initial encounter (Acute) Abrasion of hand, right (Acute) Abrasion of knee, right (Acute) COVID-19 (Acute ~02/06/22) Hypertension (Chronic) Constipation (Chronic) Restless leg syndrome (Chronic) Thrombocytosis (Chronic) Iron deficiency (Chronic) Myeloproliferative neoplasm (Chronic) 12/2020 - [facility] -Per bone marrow aspiration & Bx * Hydrea 500mg daily started Medical History (Updated 01/11/23 @ 00:48 by Lenore Castillo MD) Apnea Pt. denies Depression Pt. denies Fecal impaction in rectum Fissure, anal Rectal bleeding Stroke Pt. states no residual deficits. June 2020 Superficial phlebitis and thrombophlebitis of left leg Surgical History H/O shoulder surgery left [address] Arnold History of bilateral ligation of fallopian tubes (~1985) Family History Mother , 85 Hypertension Stroke Father , 89 Diabetes Heart disease Sister No problems noted. Sister No problems noted. Brother No problems noted. Brother No problems noted. Son Diabetes Daughter Depression Daughter Depression Social History Smoking/Tobacco Use Status: Never Smoking risk assessment performed?: Yes Alcohol Intake: former Drug use: Never Substance use type: does not use Details: glass of wine tonight. Caregiver/Support person: No Communication Needs: None Pets and animals: Yes Pets and animals: cat(s) Sexually active: No Do you think of yourself as: straight/heterosexual Current gender identity: female What is your relationship status?: How often do you talk on the phone with friends or family?: three or more times per week Do you belong to any clubs or organized social groups?: no Panel score (0-1 are the most socially isolated patients): 1 What type of physical activity do you participate in: walking Duration: 45-60 minutes/day Frequency: 5-6 times per week Seatbelt use: always Do you feel safe at home: Yes Do you feel safe in your relationship?: Yes Exam Narrative Exam Narrative: The patient is well-developed well-nourished female who is alert and oriented does not appear clinically intoxicated. She is mildly hypertensive. She is not tachycardic tachypneic or febrile. Her room air O2 sat is 98%. Her GCS is 15 Const General: cooperative, healthy appearing, comfortable, no acute distress, well developed, well groomed and well hydrated Nutritional Appearance: average body habitus and well nourished Orientation: alert, awake and oriented x3 HENMT Head: no palpable skull fracture and other (The patient has swelling of the upper lip.) Ears: hearing grossly normal bilaterally, external ears normal, TM's normal bilaterally and other (No hemotympanum otorrhea or rhinorrhea kenyon sign or raccoon's eyes) General nose exam: external nose normal, nares normal, no nasal discharge and other (No septal hematoma. No active bleeding. No bony crepitus or deformity) Face and sinus: sinuses nontender, face symmetric and other (Right upper lip swelling) Mouth: oral mucosae normal, tongue normal, oropharynx normal, moist mucous membranes and other (Normal phonation. The patient is handling secretions.) Teeth and gingiva: dentition normal and other (No malocclusion of the teeth or dental fractures. ) Throat: posterior oropharynx normal and uvula midline Other: There is a hematoma of the upper lip but no active bleeding. Eyes General: appearance normal, both eyes and all related structures Eyelids: eyelids normal Conjunctivae: conjunctivae normal Sclera: sclerae normal Cornea: corneas normal Pupils: PERRL EOM: EOM intact bilaterally and No nystagmus Other: No photophobia Neck Neck: normal visual inspection, full ROM, no lymphadenopathy, no meningeal signs, trachea midline and supple Lymphatic: no lymphadenopathy noted Chest Chest: normal inspection of the chest Resp Effort & Inspection: normal respiratory effort, able to speak in complete sentences, no audible wheezes, no nasal flaring, no respiratory distress, no retractions, no stridor, not tachypneic, no tracheal deviation, no use of accessory muscles, No prolonged expiratory phase and other (Normal inspiratory to expiratory ratio.) Auscultation: clear to auscultation bilaterally, no rales, no rhonchi, no wheezes and no rubs Tactile Fremitus: tactile fremitus absent Cardio Jugular venous pressure: no JVD Palpation: normal PMI Rate: regular rate Rhythm: regular rhythm Heart Sounds: S1 normal, S2 normal, no gallops, no murmurs and no rubs Pulses: dorsalis pedis present GI Inspection: normal to inspection and non-distended Palpation: soft, no hepatosplenomegaly, no guarding and nontender Percussion: normal to percussion Auscultation: normal bowel sounds General: No CVA tenderness Back/Spine/Pelvis Back: no CVA tenderness and No back tenderness Cervical Spine: normal cervical lordosis, cervical ROM normal, No cervical muscular tenderness, No pain with cervical ROM, No cervical spinal tenderness and No step off deformity Thoracic/Lumbar Spine: thoracic and lumbar spine normal to inspection, No thoracic spinal tenderness, No lumbar spinal tenderness and other (No bony crepitus or step-off. Full range of motion) Pelvis: no pain with anterior-posterior compression and no pain with lateral compression Sacrum: no ecchymosis Coccyx: no swelling Skin General skin exam: no rashes or lesions noted, turgor normal, no petechiae, no purpura and other (Skin is normal for ethnicity.) Lesions: no lesions Rashes: no rashes Other: There is a 2 mm abrasion to the hypothenar eminence of the right hand. And a clean superficial abrasion of the right knee and a hematoma of the upper lip. Neuro General: patient alert, patient awake, patient oriented x3, moves all extremities, no meningeal signs, no focal motor deficits and CN's II-XI intact bilaterally Cranial Nerves: CN's II-XI intact bilaterally, PERRL, accommodation normal, EOM intact bilaterally, no nystagmus, facial strength normal, tongue midline, hearing normal and no nystagmus Cognition: normal cognition Speech: speech normal Gait: normal gait Motor: muscle tone normal throughout and strength 5/5 throughout Sensory Exam: no sensory deficits noted DTR's: Rt Biceps: 2+, Lt Biceps: 2+, Rt Brachioradialis: 2+, Lt Brachioradialis: 2+, Rt Patellar: 2+, Lt Patellar: 2+, Rt Ankle: 1+ and Lt Ankle: 1+ Plantar Reflexes: Downgoing: bilateral Pupils: Mid position: bilateral Extrem General: full ROM, capillary refill normal, no clubbing, cyanosis or edema and no calf tenderness Other: Small clean abrasion to the hypothenar eminence of the right hand and a clean abrasion of the right knee. Psych Appearance: grossly normal Affect: normal affect Attitude: cooperative Thought Process: normal Thought Content: normal Insight: insight good Judgment: judgment good Other: The patient appears to have capacity make medical decisions. Course Vital Signs Vital signs: Vital Signs Temperature 37.0 C 01/10/23 21:32 Pulse 91 H 01/10/23 21:32 Respiratory Rate 16 01/10/23 21:32 Blood Pressure 152/76 H 01/10/23 21:32 Pulse Oximetry 98 01/10/23 21:32 Temperature 37.0 C 01/10/23 21:32 Temperature Source Oral 01/10/23 21:32 Pulse 91 H 01/10/23 21:32 Respiratory Rate 16 01/10/23 21:32 Respiratory Effort Normal 01/10/23 21:32 Blood Pressure 152/76 H 01/10/23 21:32 Blood Pressure Position Sitting 01/10/23 21:32 Pulse Oximetry 98 01/10/23 21:32 Oxygen Delivery Method Room Air 01/10/23 21:32 Oxygen Flow Rate 0 01/10/23 21:32 Pain Level 0 01/10/23 21:32 Lab/Test Results Lab/Test Results: Asymptomatic pyuria
--- NOTE | 2023-01-10 22:45 | DI.RAD_ITS ---
Exam(s) XR HAND RT COMPLETE EXAM: XR HAND RT COMPLETE CLINICAL HISTORY: trauma. TECHNIQUE: 2D digital imaging was performed. Three views. COMPARISON: No exams were available for comparison FINDINGS: BONES: No acute fracture is present. No bony destructive lesion is seen. JOINTS: No dislocation present. Iuzf-op-fdilssyz degenerative changes SOFT TISSUE: Mild swelling. IMPRESSION: No evidence of fracture. Degenerative changes. DATA REPOSITORY: RADIATION DOSE DELIVERED:
--- NOTE | 2023-01-10 22:54 | DI.CT_ITS ---
Exam(s) CT HEAD CERV SPINE FACIAL WO EXAM: CT HEAD CERV SPINE FACIAL WO CLINICAL HISTORY: trauma. TECHNIQUE: Imaging Protocol: Axial computed tomography images with coronal and sagittal reformatted images were created and reviewed COMPARISON: CT CT HEAD WO from 12/01/2020 FINDINGS: CT Head: Ventricles and Extra axial spaces: Normal in size and morphology for the patient's age. Hemorrhage: None. Cerebral parenchyma: Mild atrophy. White matter changes of small vessel disease. Old bilateral basa l ganglia lacunar infarct. No acute infarct or mass. Midline shift: None. Brainstem/Cerebellum: Normal. Calvarium: Normal. Visualized Paranasal sinuses/Mastoids: Clear. Soft Tissues: Unremarkable. CT Face: Facial Bones: No definite fracture is noted in facial bones. Sinuses and Mastoids: Unremarkable. Globes, extraocular muscles, optic nerves and retrobulbar fat: Normal. Upper aerodigestive tract: Normal. Mandible and bilateral temporomandibular joints: Normal. Soft tissues: Normal. CT Cervical Spine: Bones: No acute fracture or subluxation. Degenerative changes greatest at C5-6. Soft Tissues: Unremarkable. Lung Apices: Clear. IMPRESSION: 1. No acute intracranial process. 2. No acute fracture or subluxation in the cervical spine. 3. No acute facial fracture. RADIATION DOSE DELIVERED: 1,799.02mGy.cm Total DLP DATA REPOSITORY: All CT scans at this facility are submitted to the National Radiology Data Registry (NRDR) Dose Index Registry (DIR) with the [employer] ([employer]). RADIATION OPTIMIZATION: All CT scans at this facility use at least one of these dose optimization te chniques: automated exposure control; mA and/or kV adjustment per patient size (includes targeted exa ms where dose is matched to clinical indication); or iterative reconstruction.
[2023-01-10 23:31] LABS: Bilirubin Negative (Negative); Blood Negative (Negative); Clarity Clear (Clear); Glucose Negative (Negative); Ketones Negative (Negative); Leukocyte Esterase Large (Negative); Nitrite Negative (Negative); Urobilinogen 0.2 mg/dL (Up to 0.2); pH 5.5 (5-8)
[2023-01-10 23:40] LABS: Bacteria Few HPF (Negative); C & S Indicated? Yes; Casts 0-2 Hyaline LPF (Negative); Crystals Negative HPF (Negative); Epithelial Cells Few HPF (Negative); Mucus Negative (Negative); Other Cells Rare Transitional (Negative); RBC 0-2 HPF (0-2); WBC 20-50 HPF (0-5)
--- NOTE | 2023-01-10 23:46 | DI.VRAD_ITS ---
PROCEDURE INFORMATION: Exam: CT Head Without Contrast Exam date and time: 01/10/2023 11:22 PM Age: 67 years old Clinical indication: Injury or trauma; Blunt trauma (contusions or hematomas); Consciousness not specified; Lip/oral cavity; Upper; Injury date: 01/10/23; Injury details: Fall, trauma TECHNIQUE: Imaging protocol: Computed tomography of the head without contrast. Radiation optimization: All CT scans at this facility use at least one of these dose optimization techniques: automated exposure control; mA and/or kV adjustment per patient size (includes targeted exams where dose is matched to clinical indication); or iterative reconstruction. COMPARISON: CT HEAD WO 12/01/2020 12:30 PM FINDINGS: Brain: Bilateral chronic basal ganglia lacunar infarcts are detected. No hemorrhage. Moderate white matter disease No mass effect. Cerebral ventricles: No ventriculomegaly. Paranasal sinuses: Visualized sinuses are unremarkable. No fluid levels. Mastoid air cells: Visualized mastoid air cells are well aerated. Bones/joints: Unremarkable. No acute fracture. Soft tissues: Unremarkable. IMPRESSION: No acute intracranial abnormality. PROCEDURE INFORMATION: Exam: CT Maxillofacial Without Contrast Exam date and time: 01/10/2023 11:22 PM Age: 67 years old Clinical indication: Injury or trauma; Blunt trauma (contusions or hematomas); Consciousness not specified; Lip/oral cavity; Upper; Injury date: 01/10/23; Injury details: Fall, trauma TECHNIQUE: Imaging protocol: Computed tomography of the face without contrast. Radiation optimization: All CT scans at this facility use at least one of these dose optimization techniques: automated exposure control; mA and/or kV adjustment per patient size (includes targeted exams where dose is matched to clinical indication); or iterative reconstruction. COMPARISON: CT HEAD WO 12/01/2020 12:30 PM FINDINGS: Orbital cavities: Orbits are normal. Globes are unremarkable. Bones/joints: No acute fracture. Dental disease in the mandible Paranasal sinuses: Normal. No air-fluid levels. Soft tissues: Unremarkable. IMPRESSION: No acute findings. PROCEDURE INFORMATION: Exam: CT Cervical Spine Without Contrast Exam date and time: 01/10/2023 11:22 PM Age: 67 years old Clinical indication: Injury or trauma; Blunt trauma (contusions or hematomas); Consciousness not specified; Lip/oral cavity; Upper; Injury date: 01/10/23; Injury details: Fall, trauma TECHNIQUE: Imaging protocol: Computed tomography of the cervical spine without contrast. Radiation optimization: All CT scans at this facility use at least one of these dose optimization techniques: automated exposure control; mA and/or kV adjustment per patient size (includes targeted exams where dose is matched to clinical indication); or iterative reconstruction. COMPARISON: [facility] 07/26/2020 8:38 AM FINDINGS: Bones/joints: No acute fracture. Loss of cervical lordosis is presumably on a degenerative basis. Mild central canal stenosis at C6-C7 and bilateral foraminal stenosis Lungs: Lung apices are normal. Soft tissues: Unremarkable. IMPRESSION: No acute findings. Dictated and Authenticated by: Delbert Rios MD. Ordering:ALFONZO Grover MD
--- NOTE | 2023-01-11 00:12 | DI.VRAD_ITS ---
PROCEDURE INFORMATION: Exam: XR Right Hand Exam date and time: 01/10/2023 11:30 PM Age: 67 years old Clinical indication: Injury or trauma; Blunt trauma (contusions or hematomas); Hand; Right; Injury date: 01/10/23; Injury details: Fall, pain TECHNIQUE: Imaging protocol: Radiologic exam of the right hand. Views: 3 or more views. COMPARISON: No relevant prior studies available. FINDINGS: Bones/joints: There is narrowing of the 1st through 5th distal and proximal interphalangeal joints with sclerosis and osteophytes. There are mild focal degenerative changes first carpometacarpal joints. There is periarticular osteopenia present. There is no evidence of fracture. No evidence of dislocation. No acute osseous abnormality. Soft tissues: There is mild soft tissue swelling present. No radiopaque foreign body present. There is soft tissue swelling present. IMPRESSION: 1. Findings most consistent with osteoarthritis. 2. There is soft tissue swelling present. Dictated and Authenticated by: Johnnie Castañeda MD. Ordering:ALFONZO Grover MD
[2023-01-11 00:55] VITALS: BP 154/96; PULSE 78; RESP 16; TEMP 37; O2SAT 99
--- NOTE | 2023-01-11 01:26 | W.ED.FU ---
Date of service: 01/10/23 Time of Service: 01:26 Follow Up Plan: I did not enter the results of the x-rays. X-ray of the right hand showed findings most consistent with osteoarthritis 2. There is soft tissue swelling present. CT head without contrast revealed no acute intracranial abnormality. CT maxillofacial without contrast demonstrated no acute findings and CT of the cervical spine revealed no acute findings.
== END 2023-01-11 00:55 | disposition home or self-care (01) ==
PROVIDERS: Emergency Provider Emergency Medicine Emergency Medical Services; PCP Nurse Practitioner Family
DX: S09.90XA Unspecified injury of head, initial encounter (principal); S00.33XA Contusion of nose, initial encounter; S00.531A Contusion of lip, initial encounter; S60.511A Abrasion of right hand, initial encounter; S80.212A Abrasion, left knee, initial encounter; I10 Essential (primary) hypertension; Z86.73 Personal history of transient ischemic attack (TIA), and cerebral infarction without residual deficits; Z79.899 Other long term (current) drug therapy; Z79.82 Long term (current) use of aspirin; W01.0XXA Fall on same level from slipping, tripping and stumbling without subsequent striking against object, initial encounter; Y93.K1 Activity, walking an animal; Y92.480 Sidewalk as the place of occurrence of the external cause; Y99.9 Unspecified external cause status
CPT/HCPCS: 99284; 70450; 70486; 72125; 73130; 81003; 81015; 87086

== ENCOUNTER 2023-02-15 09:08 | Outpatient (CLI) | payer MEDICARE, OTHER, SELFPAY ==
[2023-02-15 08:50] LABS: Abs Immature Grans 0.03 10^3/uL (0.0-0.06); Absolute Basophil Count 0.09 10^3/uL (0.0-0.2); Absolute Eosinophil Count 0.06 10^3/uL (0.0-0.7); Absolute Lymphocyte Count 1.61 10^3/uL (1.2-3.4); Absolute Monocyte Count 0.57 10^3/uL (0.1-0.8); Absolute Neutrophil Count 4.13 10^3/uL (1.2-6.7); Basophils % 1.4; Eosinophils % 0.9; HCT 45.4 % (36.0-46.0); HGB 13.9 g/dL (11.2-15.7); Immature Grans % 0.5; Lymphocytes % 24.8; MCH 27.3 pg (27.0-33.0); MCHC 30.6 % (32.0-36.0); MCV 89 fL (80-95); MPV 11.2 fL (8.0-11.0); Monocytes % 8.8; Neutrophils % 63.6; Platelet Count 416 10^3/uL (130-400); RBC 5.09 10^6/uL (3.93-5.22); RDW 17.8 % (11.7-14.6); WBC 6.49 10^3/uL (4.4-10.8)
[2023-02-15 09:05] LABS: ALT 22 U/L (14-59); AST 22 U/L (15-37); Albumin 3.2 g/dL (3.4-5.0); Alkaline Phosphatase 111 U/L (46-116); Anion Gap 8.9 mmol/L (3-11); BUN 12 mg/dL (7-18); Bilirubin, Total 0.9 mg/dL (0.2-1.0); CO2 27.1 mmol/L (21.0-32.0); CREATININE 0.8 mg/dL (0.55-1.02); Calcium 9.4 mg/dL (8.5-10.1); Chloride 107 mmol/L (98-107); Estimated GFR 80.21 (mL/min/1.73m2); Glucose 106 mg/dL (74-106); Potassium 4.2 mmol/L (3.5-5.1); Sodium 143 mmol/L (136-145); Total Protein 7.3 g/dL (6.4-8.2)
[2023-02-15 09:07] LABS: Calculated LDL 74 mg/dL (<100); Cholesterol 163 mg/dL (<200); HDL Cholesterol 71 mg/dL (40-60); Triglyceride 92 mg/dL (<150)
== END 2023-02-15 09:09 | disposition home or self-care (01) ==
LOC: LBO 09:09
PROVIDERS: PCP Nurse Practitioner Family; Visit Provider Internal Medicine Hematology & Oncology
DX: I63.9 Cerebral infarction, unspecified (principal); D47.1 Chronic myeloproliferative disease
CPT/HCPCS: 36415; 80053; 80061; 85025

== ENCOUNTER → 2023-03-01 00:54 | Outpatient (CLI) | payer MEDICARE, OTHER, SELFPAY ==
--- NOTE | 2023-03-01 07:00 | DI.DEXA_ITS ---
Exam(s) XR DEXA BONE DENSITY W/WO LOULOU EXAM: XR DEXA BONE DENSITY W/WO LOULOU CLINICAL HISTORY: screening for osteoporosis IN POSTMENOPAUSAL WOMAN,Z78.0 TECHNIQUE: COMPARISON: No exams were available for comparison FINDINGS: Lateral Spine Image: Unremarkable. No compression deformities identified. Left hip: Total T-Score: -1.1 Total Z-Score: 0.3 T- and Z-scores: Findings are consistent with osteopenia. Lumbar Spine: Total T-Score: -1.9 Total Z-Score: 0.1 T- and Z-scores: Findings are consistent with osteopenia. IMPRESSION: No evidence of osteoporosis.
--- NOTE | 2023-03-01 07:54 | DI.MAMMO_ITS ---
Exam(s) MAMMO SCREENING EXAM: MAMMO SCREENING CLINICAL HISTORY: screening,Z12.39 TECHNIQUE: Bilateral full field digital CC and MLO mammographic images were obtained with 3D tomosyn thesis and utilizing computer aided detection (CAD). COMPARISON: Available for comparison. FINDINGS: Masses/Architectural Distortion: None seen. Microcalcifications: No suspicious pleomorphic-type are seen. Skin Thickening/Nipple Retraction: None. IMPRESSION: 1. No significant interval change with no specific features of malignancy noted. 2. Unless there is more urgent need, screening mammography is recommended, as per [place] guidelines. BI-RADS Category 1 - Negative Breast Density - Category B - Scattered areas of fibroglandular density Breast density category C or D implies that the patient has dense breast tissue. Dense breast tissue is very common and is not abnormal but dense breast tissue can make it harder to find cancer on a ma mmogram. Also, dense breast tissue may increase their breast cancer risk. This information about the result of the mammogram report was provided to the patient to raise their awareness. Use this report when you speak with the patient about their risks for breast cancer, which includes their family hist ory. At that time, you may recommend for more screening tests (Ultrasound or MRI) as they might be us eful based on their risk. A negative radiographic report should not delay biopsy if a dominant or clinically suspicious mass is present. Up to ten percent of cancers are not identified on mammography. A negative report may reinforce clinical impression. Adenosis and dense breasts may obscure an underlying neoplasm. False positive reports average 6 to 10%. Patient will receive a letter notifying them of these results.
== END ==
PROVIDERS: PCP Nurse Practitioner Family; Visit Provider Nurse Practitioner Family
DX: Z12.31 Encounter for screening mammogram for malignant neoplasm of breast (principal); Z78.0 Asymptomatic menopausal state; Z13.820 Encounter for screening for osteoporosis
CPT/HCPCS: 77063; 77067; 77080

== ENCOUNTER 2023-03-29 01:59 | Outpatient (CLI) | payer MEDICARE, OTHER, SELFPAY ==
[2023-03-29 09:36] LABS: Abs Immature Grans 0.05 10^3/uL (0.0-0.06); Absolute Basophil Count 0.08 10^3/uL (0.0-0.2); Absolute Eosinophil Count 0.07 10^3/uL (0.0-0.7); Absolute Lymphocyte Count 1.42 10^3/uL (1.2-3.4); Absolute Neutrophil Count 4.22 10^3/uL (1.2-6.7); Basophils % 1.3; Eosinophils % 1.1; HCT 40.4 % (36.0-46.0); HGB 12.5 g/dL (11.2-15.7); Immature Grans % 0.8; Lymphocytes % 22.8; MCH 28.2 pg (27.0-33.0); MCHC 30.9 % (32.0-36.0); MCV 91 fL (80-95); MPV 10.5 fL (8.0-11.0); Monocytes % 6.4; Neutrophils % 67.6; Platelet Count 403 10^3/uL (130-400); RBC 4.44 10^6/uL (3.93-5.22); RDW 18.5 % (11.7-14.6); RDW-SD 59.3 fL; WBC 6.24 10^3/uL (4.4-10.8)
[2023-03-29 10:04] LABS: ALT 19 U/L (14-59); AST 17 U/L (15-37); Albumin 3.1 g/dL (3.4-5.0); Alkaline Phosphatase 122 U/L (46-116); Anion Gap 4.3 mmol/L (3-11); BUN 17 mg/dL (7-18); Bilirubin, Total 1.1 mg/dL (0.2-1.0); CO2 29.7 mmol/L (21.0-32.0); CREATININE 0.9 mg/dL (0.55-1.02); Calcium 8.9 mg/dL (8.5-10.1); Chloride 103 mmol/L (98-107); Estimated GFR 69.64 (mL/min/1.73m2); Glucose 164 mg/dL (74-106); Potassium 5.1 mmol/L (3.5-5.1); Sodium 137 mmol/L (136-145); Total Protein 7.6 g/dL (6.4-8.2)
== END 2023-03-29 02:00 | disposition home or self-care (01) ==
LOC: LBO 01:59
PROVIDERS: PCP Nurse Practitioner Family; Visit Provider Internal Medicine Hematology & Oncology
DX: D47.1 Chronic myeloproliferative disease (principal)
CPT/HCPCS: 36415; 80053; 85025

== ENCOUNTER 2023-05-24 03:50 | Outpatient (CLI) | payer MEDICARE, OTHER, SELFPAY ==
[2023-05-24 09:12] LABS: Abs Immature Grans 0.05 10^3/uL (0.0-0.06); Absolute Basophil Count 0.07 10^3/uL (0.0-0.2); Absolute Eosinophil Count 0.07 10^3/uL (0.0-0.7); Absolute Lymphocyte Count 1.57 10^3/uL (1.2-3.4); Absolute Monocyte Count 0.54 10^3/uL (0.1-0.8); Absolute Neutrophil Count 4.26 10^3/uL (1.2-6.7); Basophils % 1.1; Eosinophils % 1.1; HCT 33.6 % (36.0-46.0); HGB 10.5 g/dL (11.2-15.7); Immature Grans % 0.8; Lymphocytes % 23.9; MCH 29.4 pg (27.0-33.0); MCHC 31.3 % (32.0-36.0); MCV 94 fL (80-95); MPV 9.2 fL (8.0-11.0); Monocytes % 8.2; Neutrophils % 64.9; Platelet Count 308 10^3/uL (130-400); RBC 3.57 10^6/uL (3.93-5.22); RDW 19.5 % (11.7-14.6); RDW-SD 64.1 fL; WBC 6.56 10^3/uL (4.4-10.8)
[2023-05-24 09:25] LABS: ALT 25 U/L (14-59); AST 21 U/L (15-37); Albumin 3.3 g/dL (3.4-5.0); Alkaline Phosphatase 121 U/L (46-116); BUN 22 mg/dL (7-18); Bilirubin, Total 1.1 mg/dL (0.2-1.0); CREATININE 0.9 mg/dL (0.55-1.02); Calcium 9.3 mg/dL (8.5-10.1); Chloride 105 mmol/L (98-107); Estimated GFR 69.64 (mL/min/1.73m2); Glucose 113 mg/dL (74-106); Potassium 4.5 mmol/L (3.5-5.1); Sodium 140 mmol/L (136-145); Total Protein 7.4 g/dL (6.4-8.2)
== END 2023-05-24 03:51 | disposition home or self-care (01) ==
PROVIDERS: Internal Medicine Hematology & Oncology; PCP Nurse Practitioner Family; Visit Provider Nurse Practitioner Family
DX: D47.1 Chronic myeloproliferative disease (principal)
CPT/HCPCS: 36415; 80053; 85025

== ENCOUNTER 2023-09-06 01:05 | Outpatient (CLI) | payer MEDICARE, OTHER, SELFPAY ==
[2023-09-06 12:41] LABS: Abs Immature Grans 0.06 10^3/uL (0.0-0.06); Absolute Basophil Count 0.07 10^3/uL (0.0-0.2); Absolute Eosinophil Count 0.11 10^3/uL (0.0-0.7); Absolute Lymphocyte Count 1.54 10^3/uL (1.2-3.4); Absolute Monocyte Count 0.61 10^3/uL (0.1-0.8); Absolute Neutrophil Count 4.97 10^3/uL (1.2-6.7); Eosinophils % 1.5 %; HCT 42.8 % (36.0-46.0); HGB 13.3 g/dL (11.2-15.7); Immature Grans % 0.8 %; Lymphocytes % 20.9 %; MCH 29.1 pg (27.0-33.0); MCHC 31.1 % (32.0-36.0); MCV 94 fL (80-95); MPV 10.1 fL (8.0-11.0); Monocytes % 8.3 %; Neutrophils % 67.5 %; Platelet Count 389 10^3/uL (130-400); RBC 4.57 10^6/uL (3.93-5.22); RDW 18.5 % (11.7-14.6); RDW-SD 62.3 fL; WBC 7.36 10^3/uL (4.4-10.8)
[2023-09-06 12:56] LABS: ALT 19 U/L (14-59); AST 17 U/L (15-37); Albumin 3.6 g/dL (3.4-5.0); Alkaline Phosphatase 126 U/L (46-116); Anion Gap 7.4 mmol/L (3-11); BUN 27 mg/dL (7-18); CO2 26.6 mmol/L (21.0-32.0); Calcium 8.7 mg/dL (8.5-10.1); Chloride 106 mmol/L (98-107); Estimated GFR 61.36 (mL/min/1.73m2); Glucose 117 mg/dL (74-106); Potassium 4.8 mmol/L (3.5-5.1); Sodium 140 mmol/L (136-145); Total Protein 7.8 g/dL (6.4-8.2)
== END 2023-09-06 01:06 | disposition home or self-care (01) ==
PROVIDERS: PCP Nurse Practitioner Family; Visit Provider Nurse Practitioner Family
DX: D75.839 Thrombocytosis, unspecified (principal)
CPT/HCPCS: 36415; 80053; 85025

== ENCOUNTER 2023-12-06 12:46 | Outpatient (CLI) | payer MEDICARE, OTHER, SELFPAY ==
[2023-12-06 10:48] LABS: Absolute Eosinophil Count 0.07 10^3/uL (0.0-0.7); Absolute Lymphocyte Count 1.26 10^3/uL (1.2-3.4); Absolute Monocyte Count 0.54 10^3/uL (0.1-0.8); Absolute Neutrophil Count 4.13 10^3/uL (1.2-6.7); Basophils % 1.6 %; Eosinophils % 1.1 %; HCT 44.6 % (36.0-46.0); HGB 13.9 g/dL (11.2-15.7); Immature Grans % 1.6 %; Lymphocytes % 20.3 %; MCH 29.4 pg (27.0-33.0); MCHC 31.2 % (32.0-36.0); MCV 95 fL (80-95); MPV 11.4 fL (8.0-11.0); Monocytes % 8.7 %; Neutrophils % 66.7 %; Platelet Count 375 10^3/uL (130-400); RBC 4.72 10^6/uL (3.93-5.22); RDW 17.9 % (11.7-14.6); RDW-SD 59.6 fL
[2023-12-06 13:21] LABS: ALT 19 U/L (14-59); AST 23 U/L (15-37); Albumin 3.4 g/dL (3.4-5.0); Alkaline Phosphatase 96 U/L (46-116); Anion Gap 7.7 mmol/L (3-11); BUN 18 mg/dL (7-18); Bilirubin, Total 1.24 mg/dL (0.2-1.0); CO2 26.3 mmol/L (21.0-32.0); CREATININE 0.8 mg/dL (0.55-1.02); Calcium 8.8 mg/dL (8.5-10.1); Chloride 103 mmol/L (98-107); Estimated GFR 80.21 (mL/min/1.73m2); Glucose 123 mg/dL (74-106); Potassium 4.4 mmol/L (3.5-5.1); Sodium 137 mmol/L (136-145); Total Protein 7.5 g/dL (6.4-8.2)
== END 2023-12-06 12:47 | disposition home or self-care (01) ==
LOC: LBO 12:47
PROVIDERS: PCP Nurse Practitioner Family; Visit Provider Nurse Practitioner Family
DX: D47.1 Chronic myeloproliferative disease (principal)
CPT/HCPCS: 36415; 80053; 85025

== ENCOUNTER 2024-03-05 03:37 | Outpatient (CLI) | payer MEDICARE, OTHER, SELFPAY ==
[2024-03-05 12:46] LABS: Abs Immature Grans 0.05 10^3/uL (0.0-0.06); Absolute Basophil Count 0.12 10^3/uL (0.0-0.2); Absolute Eosinophil Count 0.09 10^3/uL (0.0-0.7); Absolute Lymphocyte Count 1.35 10^3/uL (1.2-3.4); Absolute Neutrophil Count 5.52 10^3/uL (1.2-6.7); Basophils % 1.6 %; Eosinophils % 1.2 %; HCT 44.2 % (36.0-46.0); HGB 13.8 g/dL (11.2-15.7); Immature Grans % 0.6 %; Lymphocytes % 17.5 %; MCH 29.5 pg (27.0-33.0); MCHC 31.2 % (32.0-36.0); MCV 94 fL (80-95); MPV 10.2 fL (8.0-11.0); Monocytes % 7.8 %; Neutrophils % 71.3 %; Platelet Count 382 10^3/uL (130-400); RBC 4.68 10^6/uL (3.93-5.22); RDW 16.7 % (11.7-14.6); WBC 7.73 10^3/uL (4.4-10.8)
[2024-03-05 13:02] LABS: ALT 19 U/L (14-59); AST 21 U/L (15-37); Albumin 3.5 g/dL (3.4-5.0); Alkaline Phosphatase 113 U/L (46-116); Anion Gap 5.9 mmol/L (3-11); BUN 17 mg/dL (7-18); Bilirubin, Total 1.46 mg/dL (0.2-1.0); CO2 28.1 mmol/L (21.0-32.0); CREATININE 0.9 mg/dL (0.55-1.02); Calcium 9.4 mg/dL (8.5-10.1); Chloride 104 mmol/L (98-107); Glucose 114 mg/dL (74-106); Potassium 4.7 mmol/L (3.5-5.1); Sodium 138 mmol/L (136-145); Total Protein 7.6 g/dL (6.4-8.2)
== END 2024-03-05 03:38 | disposition home or self-care (01) ==
PROVIDERS: PCP Nurse Practitioner Family; Visit Provider Nurse Practitioner Family
DX: D75.839 Thrombocytosis, unspecified (principal)
CPT/HCPCS: 36415; 80053; 85025

== ENCOUNTER 2025-03-20 08:11 | Day surgery (SDC) | payer MEDICARE, OTHER, SELFPAY ==
[2025-03-20 08:30] VITALS: BP 145/71; PULSE 96; RESP 18; TEMP 36.4; O2SAT 99
[2025-03-20] MEDS: Tropicam./Phenyleph. (1/2.5%) 5 ML BTL OS ×3 (08:32→08:45)
--- NOTE | 2025-03-20 09:27 | W.ANESPRE ---
General Info Date of Service Date Performed: 03/20/25 Height: 4 ft 10.5 in Weight: 62.2 kg Body Mass Index (BMI): 28.1 Surgical Procedure: Operation Date: 03/20/25 10:40 Proposed Procedure Side Surgeon p Cataract Extraction with IOL Implant Left Earl Mei MD Meds Allergies and Home Medications Allergies Allergy/AdvReac Type Severity Reaction Status Date / Time metaxalone Allergy Severe Itching Verified 03/20/25 08:39 strawberry Allergy Severe Hives Verified 03/20/25 08:39 Home Medication Medication Instructions Recorded acetaminophen 650 mg 650 mg PO Q4H PRN Pain ##30 07/27/17 tablet,extended release ibuprofen 200 mg capsule 200 mg PO PRN PRN 07/27/17 aspirin 81 mg chewable tablet 81 mg PO DAILY 07/05/20 docusate sodium 100 mg capsule 100 mg PO BID #30 caps 07/21/20 (Colace) hydroxyurea 500 mg capsule (Hydrea) 500 mg PO DAILY 01/30/21 amlodipine 5 mg tablet 5 mg PO DAILY #90 tabs 03/20/24 lisinopril 20 mg tablet 20 mg PO DAILY #90 tabs 09/15/24 ropinirole 2 mg tablet 2 mg PO QHS #90 tabs 12/10/24 atorvastatin 40 mg tablet (Lipitor) 40 mg PO QHS #90 tabs 02/03/25 Current Visit Medications: Current Medications Generic Name Dose Route Start Last Admin Trade Name Freq PRN Reason Stop Dose Admin Acetaminophen 1,000 mg 03/20/25 06:00 Acetaminophen 500 Mg Tab PO 04/19/25 05:59 Q4H PRN PRN Balanced Salt Solution 500 ml 03/20/25 06:00 Balanced Salt Soln.-Plus 500 Ml Bag OP 04/19/25 05:59 DIRECTED MACKENZIE Miscellaneous Medication 0 ml 03/20/25 06:00 Prednisolone 1%, Moxifloxacin 0.5%, Bromfenac 0.09% 5.6ml Btl OS 04/19/25 05:59 DIRECTED MACKENZIE Miscellaneous Medication 0 ml 03/20/25 06:00 03/20/25 08:45 Tropicam./Phenyleph. (1/2.5%) 5 Ml Btl OS 04/19/25 05:59 1 drp DIRECTED MACKENZIE Administration Tetracaine HCl 0 ml 03/20/25 06:00 Tetracaine 0.5% 4 Ml Btl OS 04/19/25 05:59 DIRECTED [facility] Active Problems Active Problems: Problem Status Onset Code Cortical age-related cataract, left eye Acute H25.012 Nuclear age-related cataract, left eye Acute H25.12 Hyperlipidemia Acute E78.5 Hypertension Chronic I10 Constipation Chronic K59.00 Restless leg syndrome Chronic G25.81 Thrombocytosis Chronic D47.3 Iron deficiency Chronic E61.1 Myeloproliferative neoplasm Chronic D47.1 Cortical cataract of right eye Resolved H26.9 Nuclear sclerotic cataract of right eye Resolved H25.11 Posterior subcapsular age-related cataract, right eye Resolved H25.041 Medical History Medical History Influenza A (~01/2023) COVID-19 (~02/06/22) Rectal bleeding Fecal impaction in rectum Stroke Pt. states no residual deficits. June 2020 Fissure, anal Depression Pt. denies Apnea Pt. denies Superficial phlebitis and thrombophlebitis of left leg Surgical History Surgical History H/O shoulder surgery left [address] Arnold History of bilateral ligation of fallopian tubes (~1985) Tobacco Smoking/Tobacco Use Status: Never Passive smoking exposure: Yes Second hand exposure: Yes Alcohol Alcohol Intake: current Alcohol intake frequency: a few times a week Alcohol type: wine Substance Use Substance use: Never Substance use type: does not use Details: glass of wine tonight. Vital Signs and Lab Results Vital Signs Most Recent Vital Signs in EMR: Most Recent Vital Signs Temp Pulse Resp BP Pulse Ox 36.4 C L 96 H 18 145/71 H 99 03/20/25 08:30 03/20/25 08:30 03/20/25 08:30 03/20/25 08:30 03/20/25 08:30 Imaging and Studies Imaging and Studies Study information below may be from another EMR and interpreted by another provider. Please see original notes in EMR for more complete details. EKG Summary: 11/2020:Conclusion Sinus rhythm...normal P axis, V-rate 60- 99 Carotid Artery Summary:: 06/2020:MPRESSION: No evidence for hemodynamically significant carotid stenosis. Criteria for Carotid Stenosis: Normal: ICA PSV <125 cm/s no plaque or intimal thickening is visible. <50% stenosis: ICA PSV <125 cm/s and plaque or intimal thickening is visible. 50-69% stenosis: ICA PSV is 125-250 cm/s and plaque is visible. >70% stenosis to near occlusion: ICA PSV >250 cm/s with visible plaque and luminal narrowing. Pulmonary Function Summary: 08/2014:INTERPRETATION OF STUDY: Spirometry shows no evidence of obstructive airways disease, no bronchodilator response. Anesthesia Assessment and Plan Anesthesia History Personal History: No History of Anesthesia Complications Family History: No Family History of Anesthesia Complications Exercise Tolerance Exercise Tolerance: Metabolic Equivalents>4 Pertinent Negatives Pertinent Negatives: No Symptoms of GERD Cardiac & Pulmonary Exam Cardiac Exam: Normal S1/S2 Heart Sounds Pulmonary Exam: Clear Bilateral Breath Sounds Implantable Cardiac Device Does patient have a Pacemaker or an ICD?: No Airway Exam Known Difficult Airway: No Mallampati Class: 3 Mouth Opening: Normal (> 3cm) Thyromental Distance: Greater than 3 cm Neck Range of Motion: Full ROM Neck Circumference: Normal Teeth Condition: Normal Dentition ASA Classification ASA Score: ASA 3 Emergency Case?: No NPO Status NPO Status: NPO Clears >2 hours, Solids >8 hours Anesthesia Plan Resuscitation Status: Full Code Anesthesia Technique: MAC Anesthesia Airway Planned: Natural Airway Monitors Used: Standard Monitors
[2025-03-20 09:29] VITALS: BMI 28.1
[2025-03-20] MEDS: Lidocaine 1% Pres-Free 5 ML VIAL (10:06)
[2025-03-20] MEDS: Duovisc Viscoelastic System EACH 1 EACH (10:06)
[2025-03-20] MEDS: Moxifloxacin-PF 1 MG/ML VIAL (10:07)
[2025-03-20] MEDS: Phenylephrine/Lidocaine (15/10) MG/ML 1 ML VIAL (10:07)
[2025-03-20] MEDS: Balanced Salt Soln.-PLUS 500 ML BAG OP (10:08)
[2025-03-20] MEDS: Povidone-Iodine Ophth 30 ML BTL (10:08)
[2025-03-20] MEDS: Tetracaine 0.5% 4 ML BTL OS (10:09)
[2025-03-20] MEDS: Prednisolone 1%, Moxifloxacin 0.5%, Bromfenac 0.09% 5.6ML BTL OS (10:09)
[2025-03-20 10:33] VITALS: BP 134/55; PULSE 82; RESP 16; TEMP 36.1; O2SAT 97
--- NOTE | 2025-03-20 10:34 | W.PM.DSUDISC ---
Date of service: 03/20/25 Discharge Plan Disposition Patient Disposition: Home Discharge Details Attending Provider: Earl Mei Primary Care Provider: Boris Payan Home Meds and New Rx's Prescriptions: No Action aspirin 81 mg tablet,chewable 81 mg PO DAILY amlodipine 5 mg tablet 5 mg PO DAILY Qty: 90 4RF hydroxyurea [Hydrea] 500 mg capsule 500 mg PO DAILY lisinopril 20 mg tablet 20 mg PO DAILY Qty: 90 4RF ropinirole 2 mg tablet 2 mg PO QHS Qty: 90 3RF Rx Instructions: administer 1-2 hours before bedtime atorvastatin [Lipitor] 40 mg tablet 40 mg PO QHS Qty: 90 4RF ibuprofen 200 MG capsule 200 mg PO PRN PRN acetaminophen 650 MG tablet extended release 650 mg PO Q4H PRN (Reason: Pain) Qty: 30 0RF docusate sodium [Colace] 100 mg capsule 100 mg PO BID Qty: 30 0RF Discharge Instructions Stand Alone Forms: DSU Post-Op CataractKamilla (DSU) Discharge Orders Discharge Orders: Discharge Order (Routine); Ordered 03/20/25 Ordered By: Earl Mei DS: Diagnosis Discharge Diagnosis (1) Cortical age-related cataract, left eye: Status: Resolved (2) Nuclear age-related cataract, left eye: Status: Resolved
--- NOTE | 2025-03-20 10:35 | W.PM.OP ---
Operative Note Operative Note PRE-OP DIAGNOSIS: Nuclear/cortical cataract, left eye POST-OP DIAGNOSIS: same PROCEDURE: Cataract extraction using phacoemulsification with intraocular lens implant, left eye SURGEON: Earl Mei ANESTHESIA TYPE: Local By Surgeon and MAC Refer to Anesthesia Record PATHOLOGY: none sent COMPLICATIONS: None Patient was transported to: same day Patient's condition: stable Implants: Herbert and Herbert Tecnis Eyhance [id number] Indications: Progressive decreased vision due to cataract, left eye Procedure Description: CATARACT SURGERY OPERATIVE REPORT PREOPERATIVE DIAGNOSIS: 1. Nuclear/cortical cataract, left eye POSTOPERATIVE DIAGNOSIS: Same OPERATION: 1. Cataract extraction using phacoemulsification with posterior chamber intraocular lens implant, left eye. IOL: IOL Keyboarding Teacher/Model: Herbert & Herbert Tecnis Eyhance DIB00 IOL Power: + 21.0 diopters IOL Serial Number: [id number] Optic Diameter: 6.0 mm Haptic/Overall Diameter: 13.0 mm PHACO INFO: Daniel [employer]ion Vision System with OZil and Active Fluidics Cumulative Dispersed Energy (CDE): 7.86 seconds SURGEON: Earl Mei MD, ALLY ANESTHESIA: Monitored A [facility] ([facility]), with local sub-tenon's anesthetic infiltration COMPLICATIONS: None SPECIMENS: None INDICATIONS FOR PROCEDURE: The patient is a 69-year-old lady with a history of diminished visual acuity in her left eye secondary to the development of nuclear/cortical cataract. She has previously undergone cataract surgery in the right eye several years ago. She has now developed a symptomatic cataract in the left eye and desires cataract surgery there and attempt to improve and maximize her vision. See office notes for detailed information. PROCEDURE: The correct surgical eye was identified and marked as the left eye and the pupil was dilated in the preoperative area using mydriatics and cycloplegics. The dilated pupil size was 7.0 mm. Oral sedation was administered in the form of an Imprimis MKO Melt (midazolam 3mg/ketamine 25mg/ondansetron 2mg). The patient was brought to the operating room where cardiopulmonary monitoring was instituted and surgical time-out was performed, confirming the correct operative eye and IOL power. Topical anesthesia was administered and ophthalmic povidone-iodine 5% was instilled into the conjunctival fornices. The kat-ocular area was prepped with Betadine 10% solution and draped in the usual sterile fashion for intraocular surgery, including an aperture drape. A Tegaderm transparent film dressing was cut in half and used to cover the lashes and lid margins. Care was taken to sequester the lashes and lid margins under the Tegaderm dressing. A lid speculum was placed between the lids of the operative eye and the Daniel LuxOR Revalia operating microscope was maneuvered into position. Willis scissors were then used to make a conjunctival buttonhole approximately 6mm posterior to the limbus in the inferonasal quadrant. Blunt dissection was carried out to expose bare sclera, and a blunt-tipped sub-tenon’s anesthesia cannula was introduced and passed posteriorly along the globe where non-preserved plain lidocaine was injected into posterior sub-Tenon’s space. A sideport knife was used to make a paracentesis port. Intraocular phenylephrine/lidocaine was injected into the anterior chamber.. The anterior chamber was filled with viscoelastic. A keratome knife was used to construct a 2-plane near-clear corneal tunnel extending 2.0mm into clear cornea. A flap was raised on the anterior capsule and capsulorhexis forceps were used to complete a continuous curvilinear capsulorhexis of 5.0 mm. Balanced salt solution was then used to perform cortical cleaving hydrodissection and nuclear hydrodelineation until the lens could be freely rotated within the capsular bag. The lens nucleus was then disassembled and removed within the capsular bag and iris plane using phacoemulsification. Residual cortical material was removed using the irrigation/aspiration handpiece. The posterior capsule was carefully polished to remove as much residual lens epithelial cells as safely possible. The capsular bag was then inflated and the anterior chamber deepened with viscoelastic. The lens implant described above was inserted into the capsular bag using the Herbert and Herbert Simplicity pre-loaded injector. A Kuglen hook was used to dial the IOL into position. Residual viscoelastic was then removed first from posterior to the IOL, then from the anterior chamber using the I/A handpiece. The lens implant was noted to center nicely within the capsular bag. The incisions were stromally hydrated, and the anterior chamber was reformed using BSS. Then 0.5cc of moxifloxacin 1.0mg/ml were injected into the capsular bag and anterior chamber. The incisions were checked with a Weck spear and found to be secure. Several drops of ophthalmic povidone-iodine 5% were then applied to the eye followed by two drops of Imprimis combination prednisolone/moxifloxacin/nepafenac solution. The drapes were removed and a clear plastic protective eye shield was placed over the eye. The patient was then returned to Same Day Surgery in stable condition. Date of Procedure: 03/20/25
--- NOTE | 2025-03-20 10:50 | W.ANESPOSTOP ---
Postoperative Evaluation Date, Time and Location Date Performed: 03/20/25 Time Performed: 10:50 Patient Location: Day Surgery Unit Vital Signs Most Recent Imported Vital Signs: Most Recent Vital Signs Temp Pulse Resp BP Pulse Ox 36.1 C L 82 16 134/55 L 97 03/20/25 10:33 03/20/25 10:33 03/20/25 10:33 03/20/25 10:33 03/20/25 10:33 Pain Score Most Recent Pain Score: Most Recent Pain Score Pain Level 0 03/20/25 10:33 Assessment Mental Status: Awake (Alert & Oriented to Patient Baseline) Airway and Respiratory Function: Patent airway with normal (patient baseline) respiratory exam Cardiovascular Function: Hemodynamically Stable Hydration Status: Adequately Hydrated Nausea & Vomiting: No Nausea or Vomiting Pain: Pt. Denies Any Pain Peripheral Nerve Block: Patient did not receive a nerve block
[2025-03-20 10:52] VITALS: BP 134/55; PULSE 82; RESP 14; TEMP 36.6; O2SAT 99
== END 2025-03-20 11:00 | disposition home or self-care (01) ==
LOC: SUR 08:11
PROVIDERS: PCP Nurse Practitioner Family; Visit Provider Ophthalmology
PROC: (CPT 66984; principal; 2025-03-20 10:30)
DX: H25.012 Cortical age-related cataract, left eye (principal); H25.12 Age-related nuclear cataract, left eye; Z98.41 Cataract extraction status, right eye
CPT/HCPCS: 66984; 00123; V2632; J2003